=== PATIENT | female | born 1960 | race Caucasian/White ===

== ENCOUNTER → 2017-06-18 | Outpatient (CLI) | payer OTHER ==
--- NOTE | 2017-06-19 07:43 | MM ---
Reason for exam: screening (asymptomatic). Last mammogram was performed 1 year and 8 months ago. History: Patient is postmenopausal and has history of endometrial cancer at age 37. Took estrogen for 5 years beginning at age 48. Physical Findings: A clinical breast exam by your physician is recommended on an annual basis and results should be correlated with mammographic findings. MG Screening Mammo w CAD Bilateral CC, MLO, and XCCL view(s) were taken. Prior study comparison: October 04, 2015, bilateral MG screening mammo w CAD. April 27, 2014, bilateral MG screening mammo w CAD. The breast tissue is heterogeneously dense. This may lower the sensitivity of mammography. There is chronic nodularity in the left breast. There is no discrete abnormality. No significant changes when compared with prior studies. ASSESSMENT: Negative, BI-RAD 1 RECOMMENDATION: Routine screening mammogram of both breasts in 1 year.
== END | disposition home or self-care (01) ==
LOC: RADMAMWWP 13:23
PROVIDERS: ATTEND Family Medicine
DX: Z12.31 Encounter for screening mammogram for malignant neoplasm of breast (principal)

== ENCOUNTER → 2017-12-31 | Outpatient (CLI) | payer OTHER ==
--- NOTE | 2017-12-31 12:36 | XR ---
EXAMINATION TYPE: XR cervical spine limited DATE OF EXAM: 12/31/2017 COMPARISON: NONE HISTORY: Neck pain TECHNIQUE: Four views are submitted. FINDINGS: The odontoid is intact. There are no compression deformities. The prevertebral soft tissue structur es are within normal limits. There is spurring anteriorly at levels C2-C7 with large anterior osteop hytes and fusion of the anterior margins of the vertebral bodies. Severe multilevel facet arthropathy . Odontoid is somewhat sclerotic and there is asymmetry in the atlantoaxial joint spaces with regard to the lateral masses with narrowing on the right. IMPRESSION: 1. Large anterior osteophytes with fusion in the anterior margin the vertebral bodies at multiple lev els correlate for diffuse idiopathic skeletal hyperostosis versus ankylosing spondylitis. Severe face t arthropathy at all levels correlate with MRI..
== END | disposition home or self-care (01) ==
LOC: RADXRMAIN 11:28
PROVIDERS: ATTEND Family Medicine
DX: M25.78 Osteophyte, vertebrae (principal); M46.92 Unspecified inflammatory spondylopathy, cervical region; Z98.1 Arthrodesis status
CPT/HCPCS: 72040

== ENCOUNTER 2018-08-09 19:26 | Emergency (ER) | payer OTHER ==
[2018-08-09] MEDS ORDERED: PIPERACILLIN-TAZOBACTAM 4.5 GM in DEXTROSE/WATER 1 50ML.BAG IVPB STA (20:10)
[2018-08-09] MEDS ORDERED: KETOROLAC 30 MG/ML 1 ML VIAL IVP STA (20:11)
--- NOTE | 2018-08-09 20:16 | ED ---
General Adult HPI - General Chief complaint: Skin/Abscess/Foreign Body Stated complaint: Ear swelling Time Seen by Provider: 08/09/18 19:57 Source: patient Mode of arrival: ambulatory Limitations: no limitations - History of Present Illness Initial comments: Patient is a 4-year-old female who presents with a chief complaint of facial swelling and right-sided ear pain. Patient states this has been going on for about 4 days but up until today the swelling was improving. Patient states that she woke up today and had swelling in the right side of her face, right ear , and pain in the right lateral neck. She cannot identify an inciting incident. She denies previous episodes of the same. She states that she was seen at urgent care at the onset of her swelling and was given a shot of steroids and put on a Medrol Dosepak. - Related Data Previous Rx's Medication Instructions Recorded Ciprofloxacin HCl [Cipro] 750 mg PO BID #14 tablet 08/09/18 Allergies Allergy/AdvReac Type Severity Reaction Status Date / Time codeine AdvReac Nausea Verified 08/09/18 19:45 morphine AdvReac Nausea Verified 08/09/18 19:45 Review of Systems ROS Statement: Those systems with pertinent positive or pertinent negative responses have been documented in the HPI. ROS Other: All systems not noted in ROS Statement are negative. Constitutional: Reports: fever ENT: Reports: ear pain Past Medical History Past Medical History: Asthma, COPD History of Any Multi-Drug Resistant Organisms: None Reported Past Surgical History: Hysterectomy Additional Past Surgical History / Comment(s): right shoulder, bilateral foot, toe amputation on the left foot Past Psychological History: No Psychological Hx Reported Smoking Status: Current every day smoker Past Alcohol Use History: None Reported Past Drug Use History: None Reported General Exam Limitations: no limitations General appearance: alert, in no apparent distress Head exam: Present: atraumatic, normocephalic Eye exam: Present: normal appearance, PERRL, EOMI ENT exam: Absent: TM's normal bilaterally (left ear wnl, right ear has a red, swollen and warm pinna with swelling of the right ear canal. ) Neck exam: Present: tenderness (ttp in right lateral neck ) Respiratory exam: Present: normal lung sounds bilaterally. Absent: respiratory distress, wheezes Cardiovascular Exam: Present: normal rhythm, tachycardia GI/Abdominal exam: Present: soft. Absent: distended, tenderness Rectal exam: Present: deferred External exam: Present: normal external exam Extremities exam: Present: normal inspection Back exam: Present: normal inspection. Absent: CVA tenderness (R), CVA tenderness (L) Neurological exam: Present: alert, oriented X3 Psychiatric exam: Present: normal affect, normal mood Skin exam: Present: warm, dry, intact Course Vital Signs 08/09/18 08/09/18 19:40 21:29 Temperature 100.3 F H 100.5 F H Pulse Rate 118 H 65 Respiratory 20 16 Rate Blood Pressure 119/63 128/60 O2 Sat by Pulse 97 94 L Oximetry Medical Decision Making - Medical Decision Making Patient presents with a chief complaint of right-sided ear pain, facial swelling , and right lateral neck pain. On initial evaluation, patient is tachycardic and mildly febrile at 100.3. Evaluation is concerning for mastoiditis versus malignant otitis externa. That evaluation sent and includes lactic acid, VBG, and blood cultures. Patient given a dose of Zosyn. She'll be evaluated with CT of the face, soft tissue neck, and temporal bones with IV contrast. 10:30 PM Lab evaluation of this patient is grossly unremarkable. CT scans of the face, temporal bones, and soft tissue of the neck show evidence of cellulitis however there is no evidence of abscess. On re-evaluation, patient states she feels better but does not want to wait for IV abx to finish. she states that she wants to go home now. I discussed that I would like the patient to finish the IV but she refuses. at this time, patient will be treated with Cipro 750 BID for 1 week and she was instructed to follow up with PCP in 1-2 days. I discussed concerning signs and symptoms that should prompt immediate return to the emergency department. Patient verbalizes understanding. - Lab Data Result diagrams: 08/09/18 20:16 08/09/18 20:16 Lab Results 08/09/18 08/09/18 08/09/18 Range/Units 20:16 20:16 20:16 WBC 13.6 H (3.8-10.6) k/uL RBC 4.66 (3.80-5.40) m/uL Hgb 14.3 (11.4-16.0) gm/dL Hct 44.6 (34.0-46.0) % MCV 95.7 (80.0-100.0) fL MCH 30.7 (25.0-35.0) pg MCHC 32.1 (31.0-37.0) g/dL RDW 13.1 (11.5-15.5) % Plt Count 300 (150-450) k/uL Neutrophils % 79 % Lymphocytes % 12 % Monocytes % 7 % Eosinophils % 1 % Basophils % 0 % Neutrophils # 10.7 H (1.3-7.7) k/uL Lymphocytes # 1.6 (1.0-4.8) k/uL Monocytes # 0.9 (0-1.0) k/uL Eosinophils # 0.2 (0-0.7) k/uL Basophils # 0.0 (0-0.2) k/uL VBG pH 7.39 (7.31-7.41) VBG pCO2 59 H (37-51) mmHg VBG HCO3 35 H (24-28) mmol/L Sodium 141 (137-145) mmol/L Potassium 3.7 (3.5-5.1) mmol/L Chloride 98 (98-107) mmol/L Carbon Dioxide 34 H (22-30) mmol/L Anion Gap 9 mmol/L BUN 13 (7-17) mg/dL Creatinine 0.47 L (0.52-1.04) mg/dL Est GFR (CKD-EPI)AfAm >90 (>60 ml/min/1.73 sqM) Est GFR (CKD-EPI)NonAf >90 (>60 ml/min/1.73 sqM) Glucose 115 H (74-99) mg/dL Plasma Lactic Acid Scooby (0.7-2.0) mmol/L Calcium 9.4 (8.4-10.2) mg/dL Magnesium 1.8 (1.6-2.3) mg/dL Total Bilirubin 0.3 (0.2-1.3) mg/dL AST 25 (14-36) U/L ALT 31 (9-52) U/L Alkaline Phosphatase 98 (38-126) U/L Total Protein 6.8 (6.3-8.2) g/dL Albumin 3.9 (3.5-5.0) g/dL 08/09/18 Range/Units 20:16 WBC (3.8-10.6) k/uL RBC (3.80-5.40) m/uL Hgb (11.4-16.0) gm/dL Hct (34.0-46.0) % MCV (80.0-100.0) fL MCH (25.0-35.0) pg MCHC (31.0-37.0) g/dL RDW (11.5-15.5) % Plt Count (150-450) k/uL Neutrophils % % Lymphocytes % % Monocytes % % Eosinophils % % Basophils % % Neutrophils # (1.3-7.7) k/uL Lymphocytes # (1.0-4.8) k/uL Monocytes # (0-1.0) k/uL Eosinophils # (0-0.7) k/uL Basophils # (0-0.2) k/uL VBG pH (7.31-7.41) VBG pCO2 (37-51) mmHg VBG HCO3 (24-28) mmol/L Sodium (137-145) mmol/L Potassium (3.5-5.1) mmol/L Chloride (98-107) mmol/L Carbon Dioxide (22-30) mmol/L Anion Gap mmol/L BUN (7-17) mg/dL Creatinine (0.52-1.04) mg/dL Est GFR (CKD-EPI)AfAm (>60 ml/min/1.73 sqM) Est GFR (CKD-EPI)NonAf (>60 ml/min/1.73 sqM) Glucose (74-99) mg/dL Plasma Lactic Acid Scooby 1.7 (0.7-2.0) mmol/L Calcium (8.4-10.2) mg/dL Magnesium (1.6-2.3) mg/dL Total Bilirubin (0.2-1.3) mg/dL AST (14-36) U/L ALT (9-52) U/L Alkaline Phosphatase (38-126) U/L Total Protein (6.3-8.2) g/dL Albumin (3.5-5.0) g/dL Disposition Clinical Impression: Otitis externa, Cellulitis Disposition: HOME SELF-CARE Condition: Good Instructions: Otitis Externa (ED) Prescriptions: Ciprofloxacin HCl [Cipro] 750 mg PO BID #14 tablet Is patient prescribed a controlled substance at d/c from ED?: No Referrals: Angel Rodriguez DO [Primary Care Provider] - 1-2 days
[2018-08-09 20:36] LABS: Basophils % (A) 0 %; Eosinophils # (A) 0.2 k/uL (0-0.7); Eosinophils % (A) 1 %; HCT 44.6 % (34.0-46.0); HGB 14.3 gm/dL (11.4-16.0); Lymphocytes # (A) 1.6 k/uL (1.0-4.8); Lymphocytes % (A) 12 %; MCH 30.7 pg (25.0-35.0); MCHC 32.1 g/dL (31.0-37.0); MCV 95.7 fL (80.0-100.0); Mean Platelet Volume 6.8; Monocytes # (A) 0.9 k/uL (0-1.0); Monocytes % (A) 7 %; Neutrophils # (A) 10.7 k/uL (1.3-7.7); Neutrophils % (A) 79 %; Platelet Count 300 k/uL (150-450); RBC 4.66 m/uL (3.80-5.40); RDW 13.1 % (11.5-15.5); WBC 13.6 k/uL (3.8-10.6)
[2018-08-09 20:40] LABS: VBG PH 7.39 (7.31-7.41)
[2018-08-09 20:45] LABS: ALT 31 U/L (9-52); AST 25 U/L (14-36); Albumin 3.9 g/dL (3.5-5.0); Alkaline Phosphatase 98 U/L (38-126); Anion Gap 9 mmol/L; Blood Urea Nitrogen 13 mg/dL (7-17); Calcium 9.4 mg/dL (8.4-10.2); Carbon Dioxide 34 mmol/L (22-30); Chloride 98 mmol/L (98-107); Glucose 115 mg/dL (74-99); Magnesium 1.8 mg/dL (1.6-2.3); Potassium 3.7 mmol/L (3.5-5.1); Sodium 141 mmol/L (137-145); Total Bilirubin 0.3 mg/dL (0.2-1.3); Total Protein 6.8 g/dL (6.3-8.2)
[2018-08-09 21:31] VITALS: RESP 16
--- NOTE | 2018-08-09 21:41 | CT ---
EXAMINATION TYPE: CT facial bones w con DATE OF EXAM: 08/09/2018 COMPARISON: None HISTORY: Right sided neck and facial swelling and redness x [address] DLP: 624.2 mGycm Automated exposure control for dose reduction was used. CONTRAST: CT scan of the facial bones is performed with IV Contrast, patient injected with mL of Isovue 300. TECHNIQUE: CT scan of the sinuses is performed without contrast, axial images are obtained, coronal r eformatted images are also reviewed. FINDINGS: Orbital margins are intact. There is no evidence of a blowout fracture. There are mucus ret ention cysts in both maxillary sinuses. There is no evidence of orbital mass. The maxilla appears int act. Zygomatic arches appear normal. I see no pathologic enhancement. IMPRESSION: Mucous retention cysts in the maxillary sinuses. No evidence of acute inflammatory change s of the face.
--- NOTE | 2018-08-09 21:45 | CT ---
EXAMINATION TYPE: CT soft tissue neck w con DATE OF EXAM: 08/09/2018 9:19 PM COMPARISON: None HISTORY: Right sided neck and facial swelling and redness x [address] DLP: 272.2 mGycm Automated exposure control for dose reduction was used. CONTRAST: CT scan of the neck is performed following with IV Contrast, patient injected with 100 mL of Isovue 3 00. Axial images are obtained, coronal and sagittal reformatted images are reviewed. FINDINGS: Thyroid gland is symmetric. There is normal contrast opacification of the carotid arteries and jugula r veins. Submandibular salivary glands are symmetric. The parotid glands are fairly symmetric. Epiglo ttis appears normal. Prevertebral soft tissues are not thickened. There is extensive hypertrophic leah dging osteophyte formation in the mid and lower cervical spine. There is minimal subcutaneous edema a long the lateral aspect of the right side of the face. This is seen anterior to the ear and lateral t o the zygomatic arch and the maxilla. There is no discrete fluid collection. The external auditory ca nals appear normal. Mandible is intact. There are a few anterior triangle cervical lymph nodes that m easure up to 10 mm. I see no significant cervical adenopathy. There is no evidence of a pharyngeal ma ss. The tonsils and adenoids appear normal. IMPRESSION: Mild subcutaneous edema over the right side of the face is nonspecific and could relate to mild cellulitis. No evidence of an abscess. Small mucous retention cysts in the maxillary sinuses.
--- NOTE | 2018-08-09 21:51 | CT ---
EXAMINATION TYPE: CT iac w con DATE OF EXAM: 08/09/2018 COMPARISON: None HISTORY: Right sided neck and facial swelling and redness x [address] DLP: 142.7 mGycm Automated exposure control for dose reduction was used. CONTRAST: CT scan of the IACs is performed with IV Contrast, patient injected with mL of Isovue 300. FINDINGS: There are mucous retention cysts in the maxillary sinuses. The external auditory canals brittany ear normal. There is normal aeration of the epitympanic recess and the middle ear cavity bilaterally. There is fairly normal aeration of the mastoid sinuses. Temporomandibular joints are intact. There i s no evidence of cerebellopontine angle mass. There is no pathologic enhancement at the skull base. I nternal auditory canals are symmetric. I see no focal bone destruction. The cochlea and semicircular canals are unremarkable. IMPRESSION: Small mucous retention cysts are seen in the maxillary sinuses. Normal CT scan of the tem poral bones.
[2018-08-09 22:41] VITALS: BP 134/63; PULSE 89; TEMP 99.9
== END 2018-08-09 22:45 | disposition home or self-care (01) ==
LOC: EC 19:26
DX: L03.211 Cellulitis of face (principal); H60.91 Unspecified otitis externa, right ear; R00.0 Tachycardia, unspecified; M54.2 Cervicalgia; F17.200 Nicotine dependence, unspecified, uncomplicated; Z88.5 Allergy status to narcotic agent
CPT/HCPCS: 36415; 80053; 82803; 83605; 83735; 85025; 87040; 70481; 70487; 70491; 99283; 96365; 96366; 96375; J1885; J2543; Q9967

== ENCOUNTER → 2018-11-27 | Outpatient (CLI) | payer OTHER ==
--- NOTE | 2018-12-07 12:27 | MM ---
Reason for exam: screening (asymptomatic). Last mammogram was performed 1 year and 5 months ago. History: Patient is postmenopausal and has history of endometrial cancer at age 37. Took estrogen for 5 years beginning at age 48. MG Screening Mammo w CAD Bilateral CC and MLO view(s) were taken. Prior study comparison: June 18, 2017, bilateral MG screening mammo w CAD. October 04, 2015, bilateral MG screening mammo w CAD. The breast tissue is extremely dense which could obscure a lesion on mammography. Chronic nodularity left breast. No significant changes when compared with prior studies. ASSESSMENT: Benign, BI-RAD 2 RECOMMENDATION: Routine screening mammogram of both breasts in 1 year.
== END ==
LOC: RADMAMWWP 10:44
PROVIDERS: ATTEND Family Medicine
DX: Z12.31 Encounter for screening mammogram for malignant neoplasm of breast (principal)
CPT/HCPCS: 77067

== ENCOUNTER 2019-06-10 08:03 | Day surgery (SDC) | payer OTHER ==
[2019-06-08 12:18] VITALS: BMI 21.1
[~2019-06-10 08:03] MED LIST: LACTATED RINGERS 1,000 ML IV SCH; LIDOCAINE 1% 20 ML VIAL (10MG/ML) FOR IV START INTRADERMA PRN
[2019-06-10 08:26] VITALS: RESP 16; TEMP 97.1
[2019-06-10] MEDS ORDERED: MIDAZOLAM 2 MG/2 ML VIAL ONE (09:15)
[2019-06-10] MEDS ORDERED: fentaNYL (PF) 50 MCG/ML 2 ML AMP ONE (09:15)
[2019-06-10] MEDS ORDERED: PROPOFOL 10 MG/ML 20 ML VIAL IV ONE (09:15)
--- NOTE | 2019-06-10 09:27 | P.GSHP ---
History of Present Illness H&P Date: 06/10/19 Chief Complaint: Colon cancer screening Patient here today for colonoscopy. No colonoscopy previously. No bowel related complaints. No family history of colon cancer. Past Medical History Past Medical History: Asthma, COPD, Osteoarthritis (OA) Additional Past Medical History / Comment(s): MIGRAINE HEADACHE , History of Any Multi-Drug Resistant Organisms: None Reported Past Surgical History: Section, Hysterectomy Additional Past Surgical History / Comment(s): right shoulder X2 , bilateral foot, toe amputation on the left foot , Past Anesthesia/Blood Transfusion Reactions: No Reported Reaction Additional Past Anesthesia/Blood Transfusion Reaction / Comment(s): WITH CODEINE OR MORPHINE- VOMITING AND HEADACHE Smoking Status: Current every day smoker - Past Family History Mother Family Medical History: Deep Vein Thrombosis (DVT) Medications and Allergies Home Medications Medication Instructions Recorded Confirmed Type Cholecalciferol (Vitamin D3) 5,000 unit PO BID 06/08/19 06/08/19 History [Vitamin D3] Dextroamphetamine/Amphetamine 20 mg PO BID 06/08/19 06/08/19 History [Adderall] Dextroamphetamine/Amphetamine 20 mg PO DAILY 06/08/19 06/08/19 History [Adderall] Fluticasone Nasal [place] [Flonase 1 spray EA NOSTRIL DAILY PRN 06/08/19 06/08/19 History Nasal [place]] Galcanezumab-Gnlm [Emgality] 120 mg SQ QMONTH 06/08/19 06/08/19 History Loratadine 10 mg PO BID 06/08/19 06/08/19 History Ondansetron HCl [Zofran] 4 mg PO DAILY PRN 06/08/19 06/10/19 History Ranitidine HCl [Zantac] 150 mg PO BID 06/08/19 06/10/19 History Allergies Allergy/AdvReac Type Severity Reaction Status Date / Time codeine AdvReac SEVERE Verified 06/08/19 11:59 HEADACHE , VOMITING morphine AdvReac Vomiting, Verified 06/08/19 11:59 SEVERE HEADACHE Surgical - Exam Vital Signs Temp Pulse Resp BP Pulse Ox 97.1 F L 79 16 133/87 94 L 06/10/19 08:24 06/10/19 08:24 06/10/19 08:24 06/10/19 08:24 06/10/19 08:24 Physical exam: General: Well-developed, well-nourished HEENT: Normocephalic, sclerae nonicteric Abdomen: Nontender, nondistended Extremities: No edema Neuro: Alert and oriented Assessment and Plan (1) Colon cancer screening Current Visit: Yes Status: Acute Code(s): Z12.11 - ENCOUNTER FOR SCREENING FOR MALIGNANT NEOPLASM OF COLON SNOMED Code(s): 468070501
--- NOTE | 2019-06-10 09:40 | P.PCN ---
Date of Procedure: 06/10/19 Procedure(s) Performed: PREOPERATIVE DIAGNOSIS: Screening POSTOPERATIVE DIAGNOSIS: Poor prep PROCEDURE: Attempted colonoscopy aborted secondary to poor prep ANESTHESIA: MAC SURGEON: Nato Salgado M.D. SPECIMENS: None ENDOSCOPIC PROCEDURE: The patient was placed on the endoscopy table in the left decubitus position. The Olympus colonoscope was inserted into the anus and passed under direct visualization to the mid descending colon. The patient had solid stool seen scattered throughout. We were unable to visualize the mucosal surfaces. Scope withdrawn. No definite abnormalities were present. Digital rectal examination was normal. The patient was taken to the recovery room in stable condition per anesthesia guidelines. RECOMMENDATIONS: Will discuss options with patient regarding reattempts at colonoscopy.
[2019-06-10 09:54] VITALS: BP 110/73; PULSE 82
== END 2019-06-10 10:14 | disposition home or self-care (01) ==
LOC: ORWHC2ENDO 08:03
PROVIDERS: ATTEND Surgery
DX: Z12.11 Encounter for screening for malignant neoplasm of colon (principal); J44.9 Chronic obstructive pulmonary disease, unspecified; M19.90 Unspecified osteoarthritis, unspecified site; G43.909 Migraine, unspecified, not intractable, without status migrainosus; Z90.710 Acquired absence of both cervix and uterus; Z89.422 Acquired absence of other left toe(s); F17.200 Nicotine dependence, unspecified, uncomplicated; F90.9 Attention-deficit hyperactivity disorder, unspecified type; Z97.2 Presence of dental prosthetic device (complete) (partial); H60.90 Unspecified otitis externa, unspecified ear; K21.9 Gastro-esophageal reflux disease without esophagitis; Z79.899 Other long term (current) drug therapy; Z88.5 Allergy status to narcotic agent
CPT/HCPCS: G0121; J2250; J3010; J2704; 45378

== ENCOUNTER → 2021-06-08 | Outpatient (CLI) | payer BC ==
--- NOTE | 2021-06-08 12:36 | XR ---
EXAMINATION TYPE: XR chest 2V DATE OF EXAM: 06/08/2021 CLINICAL HISTORY: R09.02. TECHNIQUE: Frontal and lateral view of the chest. COMPARISON: 11/26/2013 , 01/28/2011 chest x-ray. CT chest 01/28/2011. FINDINGS: The lungs are hyperexpanded with interstitial coarsening. Redemonstrated surgical clips ov er the anterior right upper lung demonstrated to be axillary clips on 2010 CT comparison. The opacity over the left upper lung is related to the left first costochondral joint, benign, and unchanged. Th e cardiomediastinal silhouette is within normal limits for size. Pulmonary vasculature is normal. The re is no focal air space opacity. No pleural effusion. No pneumothorax seen. Dextrocurvature of the thoracic spine. IMPRESSION: 1. No acute cardiopulmonary process. 2. Likely chronic emphysematous changes.
== END | disposition home or self-care (01) ==
LOC: RADXRMAIN 09:46
PROVIDERS: ATTEND Family Medicine
DX: R09.02 Hypoxemia (principal); R91.8 Other nonspecific abnormal finding of lung field
CPT/HCPCS: 71046

== ENCOUNTER → 2021-06-29 | Outpatient (CLI) | payer BC ==
--- NOTE | 2021-07-03 14:15 | MM ---
Reason for exam: screening (asymptomatic). Last mammogram was performed 2 years and 7 months ago. History: Patient is postmenopausal and has history of endometrial cancer at age 37. Took estrogen for 5 years beginning at age 48. Physical Findings: A clinical breast exam by your physician is recommended on an annual basis and results should be correlated with mammographic findings. MG Screening Mammo w CAD Bilateral CC and MLO view(s) were taken. Prior study comparison: November 27, 2018, bilateral MG screening mammo w CAD. June 18, 2017, bilateral MG screening mammo w CAD. The breast tissue is heterogeneously dense. This may lower the sensitivity of mammography. There is chronic nodularity in the left upper outer quadrant. No significant changes when compared with prior studies. ASSESSMENT: Negative, BI-RAD 1 RECOMMENDATION: Routine screening mammogram of both breasts in 1 year.
== END | disposition home or self-care (01) ==
LOC: RADMAMWWP 13:10
PROVIDERS: ATTEND Family Medicine
DX: Z12.31 Encounter for screening mammogram for malignant neoplasm of breast (principal); R09.02 Hypoxemia
CPT/HCPCS: 77067

== ENCOUNTER → 2021-06-29 | Outpatient (CLI) | payer BC ==
--- NOTE | 2021-06-29 14:20 | CT ---
EXAMINATION TYPE: CT angio chest DATE OF EXAM: 06/29/2021 2:08 PM COMPARISON: None HISTORY: Hypoxemia. CT DLP: 117.4 mGycm Automated exposure control for dose reduction was used. CONTRAST: CTA scan of the thorax is performed with IV Contrast, patient injected with 100ml mL of Isovue 370, p ulmonary embolism protocol. . FINDINGS: LUNGS: The lungs are grossly clear, there is no concerning parenchymal mass or nodule identified. T here is no pleural effusion or pneumothorax seen. The tracheobronchial tree is patent. Diffuse emphy sematous changes involving the lungs are noted. Biapical pleural-based thickening. MEDIASTINUM: There is satisfactory enhancement of the pulmonary artery and its branches, there is no CT evidence for pulmonary embolism. There are no greater than 1 cm hilar or mediastinal lymph nodes. No pericardial effusion is seen. Pulmonary arteries are prominent correlate for pulmonary arterial hypertension OTHER: Chronic rib deformities are noted on the right compatible previous trauma. Hypertrophic and d egenerative change of the spine. There is suggestion of previous rib fractures on the left as well. IMPRESSION: 1. No evidence of pulmonary embolism. 2. Diffuse emphysematous changes of the lungs
== END | disposition home or self-care (01) ==
LOC: RADCTMAIN 13:40
PROVIDERS: ATTEND Family Medicine
DX: J43.9 Emphysema, unspecified (principal); R09.02 Hypoxemia
CPT/HCPCS: 71275; Q9967

== ENCOUNTER 2022-10-09 16:19 | Inpatient (IN) | payer BC, OTHER ==
[2022-10-09] MEDS ORDERED: SODIUM CHLORIDE 0.9% 1,000 ML IV STA (16:44)
--- NOTE | 2022-10-09 16:48 | ED ---
General Adult HPI - General Source: patient, RN notes reviewed, old records reviewed Mode of arrival: ambulatory Limitations: no limitations <Cj Lopez - Last Filed: 10/09/22 18:47> <Cj Matamoros - Last Filed: 10/10/22 01:30> - General Chief complaint: GI Bleed Stated complaint: Blood in stool Time Seen by Provider: 10/09/22 16:35 - History of Present Illness Initial comments: This is a 62-year-old female presents emergency Department with a past medical history significant for COPD and is oxygen dependent. Patient comes in today stating that she's had diarrhea since last night and is quite a bit of blood every time she has a bowel movement. Patient states she has no abdominal pain. Patient denies any nausea vomiting. Patient is a fever chills or cough. Patient states she has been lightheaded when she stands per patient also states she's a little bit short of breath as well. Patient denies any chest pain or palpitations. Patient denies any headache patient denies any numbness or weakness that is focal. Patient denies any swelling to her extremities. (Cj Lopez) - Related Data Home Medications Medication Instructions Recorded Confirmed Dextroamphetamine/Amphetamine 10 mg PO DAILY@1400 06/08/19 10/09/22 [Adderall] Dextroamphetamine/Amphetamine 20 mg PO DAILY@0800 06/08/19 10/09/22 [Adderall] Loratadine 10 mg PO DAILY 06/08/19 10/09/22 ondansetron HCL [Zofran] 4 mg PO Q8H PRN 06/08/19 10/09/22 Albuterol Nebulized [Ventolin 2.5 mg INHALATION RT-QID PRN 10/09/22 10/09/22 Nebulized] Albuterol Sulfate [Ventolin HFA] 2 puff INHALATION RT-Q6H PRN 10/09/22 10/09/22 Clobetasol Propionate/Emoll 1 applic TOPICAL DAILY PRN 10/09/22 10/09/22 [Clobetasol Emulsion 0.05% Foam] predniSONE See Taper PO DIRECTED 10/09/22 10/09/22 Allergies Allergy/AdvReac Type Severity Reaction Status Date / Time codeine AdvReac SEVERE Verified 10/09/22 18:06 HEADACHE , VOMITING morphine AdvReac Vomiting, Verified 10/09/22 18:06 SEVERE HEADACHE Review of Systems ROS Other: All systems not noted in ROS Statement are negative. <Cj Lopez - Last Filed: 10/09/22 18:47> ROS Other: All systems not noted in ROS Statement are negative. <JoeljonnieCj Darnell - Last Filed: 10/10/22 01:30> ROS Statement: Those systems with pertinent positive or pertinent negative responses have been documented in the HPI. Past Medical History Past Medical History: Asthma, COPD, Osteoarthritis (OA) Additional Past Medical History / Comment(s): MIGRAINE HEADACHE , History of Any Multi-Drug Resistant Organisms: None Reported Past Surgical History: Section, Hysterectomy Additional Past Surgical History / Comment(s): right shoulder X2 , bilateral foot, toe amputation on the left foot , Past Anesthesia/Blood Transfusion Reactions: No Reported Reaction Additional Past Anesthesia/Blood Transfusion Reaction / Comment(s): WITH CODEINE OR MORPHINE- VOMITING AND HEADACHE Past Psychological History: Depression Smoking Status: Current every day smoker Past Alcohol Use History: Rare Past Drug Use History: None Reported - Past Family History Mother Family Medical History: Deep Vein Thrombosis (DVT) <Cj Lopez - Last Filed: 10/09/22 18:47> General Exam Limitations: no limitations <Cj Lopez - Last Filed: 10/09/22 18:47> Limitations: altered mental status General appearance: alert, anxious, in distress, cachectic Head exam: Present: atraumatic, normocephalic, normal inspection Eye exam: Present: normal appearance, PERRL, EOMI. Absent: scleral icterus, conjunctival injection, periorbital swelling ENT exam: Present: normal exam, mucous membranes moist Neck exam: Present: normal inspection. Absent: tenderness, meningismus, lymphadenopathy Respiratory exam: Present: normal lung sounds bilaterally. Absent: respiratory distress, wheezes, rales, rhonchi, stridor Cardiovascular Exam: Present: regular rate, normal rhythm, normal heart sounds. Absent: systolic murmur, diastolic murmur, rubs, gallop, clicks GI/Abdominal exam: Present: soft, normal bowel sounds. Absent: distended, tenderness, guarding, rebound, rigid Extremities exam: Present: normal inspection, full ROM, normal capillary refill. Absent: tenderness, pedal edema, joint swelling, calf tenderness Back exam: Present: normal inspection Neurological exam: Present: alert, oriented X3, CN II-XII intact Psychiatric exam: Present: normal affect, normal mood Skin exam: Present: warm, dry, intact, normal color. Absent: rash <Cj Matamoros - Last Filed: 10/10/22 01:30> - General Exam Comments Initial Comments: GENERAL: Patient is well-developed and well-nourished. Patient is nontoxic and well- hydrated and is in mild distress. ENT: Neck is soft and supple. No significant lymphadenopathy is noted. Oropharynx is clear. Moist mucous membranes. Neck has full range of motion without eliciting any pain. EYES: The sclera were anicteric and conjunctiva are pale. Extraocular movements were intact and pupils were equal round and reactive to light. Eyelids were unremarkable. PULMONARY: Unlabored respirations. Good breath sounds bilaterally. No audible rales rhonchi or wheezing was noted. CARDIOVASCULAR: There is a regular rate and rhythm without any murmurs gallops or rubs. ABDOMEN: Soft and nontender with normal bowel sounds. SKIN: Skin is clear with no lesions or rashes and otherwise unremarkable. NEUROLOGIC: Patient is alert and oriented x3. Cranial nerves II through XII are grossly intact. Motor and sensory are also intact. Normal speech, volume and content. Symmetrical smile. MUSCULOSKELETAL: Normal extremities with adequate strength and full range of motion. No lower extremity swelling or edema. No calf tenderness. LYMPHATICS: No significant lymphadenopathy is noted PSYCHIATRIC: Normal psychiatric evaluation. (Cj Lopez) Course Vital Signs 10/09/22 10/09/22 10/09/22 16:21 17:00 18:00 Temperature 98.5 F Pulse Rate 110 H 112 H Respiratory 20 20 Rate Blood Pressure 82/51 93/45 100/61 O2 Sat by Pulse 98 99 Oximetry 10/09/22 10/09/22 10/10/22 19:32 23:32 00:38 Temperature Pulse Rate 105 H 101 H 111 H Respiratory 18 15 15 Rate Blood Pressure 101/54 80/46 100/58 O2 Sat by Pulse 98 97 97 Oximetry Medical Decision Making - Lab Data Result diagrams: 10/09/22 17:10 10/09/22 17:10 <Cj Lopez - Last Filed: 10/09/22 18:47> - Lab Data Result diagrams: 10/10/22 00:42 10/09/22 17:10 <Cj Matamoros - Last Filed: 10/10/22 01:30> - Medical Decision Making Patient's hemoglobin was 18 the patient stated that she was still having blood in her bowel movements. Patient's magnesium was 1.4 I gave the patient 1 g of magnesium IV. I spoke with the [facility] agreed to admit the patient admitted the patient I wrote admitting orders (Cj Lopez) - Lab Data Lab Results 10/09/22 10/09/22 10/09/22 Range/Units 17:00 17:05 17:10 WBC 7.8 (3.8-10.6) k/uL RBC 4.21 (3.80-5.40) m/uL Hgb 13.8 (11.4-16.0) gm/dL Hct 43.1 (34.0-46.0) % MCV 102.3 H (80.0-100.0) fL MCH 32.9 (25.0-35.0) pg MCHC 32.1 (31.0-37.0) g/dL RDW 12.8 (11.5-15.5) % Plt Count 232 (150-450) k/uL MPV 7.9 Neutrophils % 89 % Lymphocytes % 7 % Monocytes % 2 % Eosinophils % 1 % Basophils % 0 % Neutrophils # 6.9 (1.3-7.7) k/uL Lymphocytes # 0.6 L (1.0-4.8) k/uL Monocytes # 0.2 (0-1.0) k/uL Eosinophils # 0.0 (0-0.7) k/uL Basophils # 0.0 (0-0.2) k/uL Hypochromasia Slight Macrocytosis Slight PT (9.0-12.0) sec INR (<1.2) APTT (22.0-30.0) sec Sodium (137-145) mmol/L Potassium (3.5-5.1) mmol/L Chloride (98-107) mmol/L Carbon Dioxide (22-30) mmol/L Anion Gap mmol/L BUN (7-17) mg/dL Creatinine (0.52-1.04) mg/dL Est GFR (CKD-EPI)AfAm (>60 ml/min/1.73 sqM) Est GFR (CKD-EPI)NonAf (>60 ml/min/1.73 sqM) Glucose (74-99) mg/dL Calcium (8.4-10.2) mg/dL Magnesium (1.6-2.3) mg/dL Total Bilirubin (0.2-1.3) mg/dL AST (14-36) U/L ALT (4-34) U/L Alkaline Phosphatase (38-126) U/L Troponin I (0.000-0.034) ng/mL Total Protein (6.3-8.2) g/dL Albumin (3.5-5.0) g/dL Blood Type O Positive Blood Type Confirm O Positive Blood Type Recheck No Previous Record Bld Type Recheck Status CABO Indicated Antibody Screen NEGATIVE Spec Expiration Date 10/12/2022 - 229910/09/22 10/09/22 10/09/22 Range/Units 17:10 17:10 17:10 WBC (3.8-10.6) k/uL RBC (3.80-5.40) m/uL Hgb (11.4-16.0) gm/dL Hct (34.0-46.0) % MCV (80.0-100.0) fL MCH (25.0-35.0) pg MCHC (31.0-37.0) g/dL RDW (11.5-15.5) % Plt Count (150-450) k/uL MPV Neutrophils % % Lymphocytes % % Monocytes % % Eosinophils % % Basophils % % Neutrophils # (1.3-7.7) k/uL Lymphocytes # (1.0-4.8) k/uL Monocytes # (0-1.0) k/uL Eosinophils # (0-0.7) k/uL Basophils # (0-0.2) k/uL Hypochromasia Macrocytosis PT 11.2 (9.0-12.0) sec INR 1.0 (<1.2) APTT 24.3 (22.0-30.0) sec Sodium 139 (137-145) mmol/L Potassium 4.5 (3.5-5.1) mmol/L Chloride 94 L (98-107) mmol/L Carbon Dioxide 40 H (22-30) mmol/L Anion Gap 5 mmol/L BUN 45 H (7-17) mg/dL Creatinine 0.46 L (0.52-1.04) mg/dL Est GFR (CKD-EPI)AfAm >90 (>60 ml/min/1.73 sqM) Est GFR (CKD-EPI)NonAf >90 (>60 ml/min/1.73 sqM) Glucose 121 H (74-99) mg/dL Calcium 9.0 (8.4-10.2) mg/dL Magnesium 1.4 L (1.6-2.3) mg/dL Total Bilirubin 0.5 (0.2-1.3) mg/dL AST 28 (14-36) U/L ALT 23 (4-34) U/L Alkaline Phosphatase 49 (38-126) U/L Troponin I <0.012 (0.000-0.034) ng/mL Total Protein 6.5 (6.3-8.2) g/dL Albumin 4.1 (3.5-5.0) g/dL Blood Type Blood Type Confirm Blood Type Recheck Bld Type Recheck Status Antibody Screen Spec Expiration Date Critical Care Time Critical Care Time: Yes Total Critical Care Time: 35 <Cj Lopez - Last Filed: 10/09/22 18:47> <Cj Matamoros - Last Filed: 10/10/22 01:30> Critical Care Time: 31 (Cj Matamoros) Disposition Time of Disposition: 18:10 <Cj Lopez - Last Filed: 10/09/22 18:47> Is patient prescribed a controlled substance at d/c from ED?: No <Cj Matamoros - Last Filed: 10/10/22 01:30> Clinical Impression: GI bleed, Hypomagnesemia, Syncope, Anemia Disposition: ADMITTED IP TO THIS HOSP Condition: Serious
[2022-10-09 17:22] LABS: Basophils % (A) 0 %; Eosinophils % (A) 1 %; HCT 43.1 % (34.0-46.0); HGB 13.8 gm/dL (11.4-16.0); Hypochromasia Slight; Lymphocytes # (A) 0.6 k/uL (1.0-4.8); Lymphocytes % (A) 7 %; MCH 32.9 pg (25.0-35.0); MCHC 32.1 g/dL (31.0-37.0); MCV 102.3 fL (80.0-100.0); Macrocytosis Slight; Mean Platelet Volume 7.9; Monocytes # (A) 0.2 k/uL (0-1.0); Monocytes % (A) 2 %; Neutrophils # (A) 6.9 k/uL (1.3-7.7); Neutrophils % (A) 89 %; Platelet Count 232 k/uL (150-450); RBC 4.21 m/uL (3.80-5.40); RDW 12.8 % (11.5-15.5); WBC 7.8 k/uL (3.8-10.6)
[2022-10-09 17:32] LABS: Partial Thromboplastin Time 24.3 sec (22.0-30.0); Prothrombin Time 11.2 sec (9.0-12.0)
[2022-10-09 17:42] LABS: ALT 23 U/L (4-34); AST 28 U/L (14-36); African American GFR (CKD) >90 (>60 ml/min/1.73 sqM); Albumin 4.1 g/dL (3.5-5.0); Alkaline Phosphatase 49 U/L (38-126); Anion Gap 5 mmol/L; Blood Urea Nitrogen 45 mg/dL (7-17); Chloride 94 mmol/L (98-107); Glucose 121 mg/dL (74-99); Magnesium 1.4 mg/dL (1.6-2.3); Non-African American GFR(CKD) >90 (>60 ml/min/1.73 sqM); Potassium 4.5 mmol/L (3.5-5.1); Sodium 139 mmol/L (137-145); Total Bilirubin 0.5 mg/dL (0.2-1.3); Total Protein 6.5 g/dL (6.3-8.2)
[2022-10-09 17:54] LABS: Carbon Dioxide 40 mmol/L (22-30)
[2022-10-09] MEDS ORDERED: MAGNESIUM SULFATE-D5W PMX 1 GM in DEXTROSE/WATER 1 100ML.BAG IVPB ONE (18:01)
[2022-10-09] MEDS ORDERED: SODIUM CHLORIDE 0.9% 1,000 ML IV ONE (18:48)
[2022-10-09 19:17] LABS: Basophils % (A) 0 %; Eosinophils % (A) 0 %; HCT 31.4 % (34.0-46.0); Lymphocytes # (A) 0.9 k/uL (1.0-4.8); Lymphocytes % (A) 14 %; MCH 32.3 pg (25.0-35.0); MCHC 31.4 g/dL (31.0-37.0); MCV 102.8 fL (80.0-100.0); Macrocytosis Slight; Mean Platelet Volume 8.2; Monocytes # (A) 0.3 k/uL (0-1.0); Monocytes % (A) 4 %; Neutrophils # (A) 5.1 k/uL (1.3-7.7); Neutrophils % (A) 80 %; Platelet Count 191 k/uL (150-450); RBC 3.05 m/uL (3.80-5.40); RDW 13.3 % (11.5-15.5); WBC 6.4 k/uL (3.8-10.6)
[2022-10-09 19:19] LABS: HGB 9.9 gm/dL (11.4-16.0)
[2022-10-10 00:53] LABS: Basophils # (A) 0.1 k/uL (0-0.2); Basophils % (A) 1 %; Eosinophils # (A) 0.1 k/uL (0-0.7); Eosinophils % (A) 1 %; HCT 26.3 % (34.0-46.0); HGB 8.9 gm/dL (11.4-16.0); Lymphocytes # (A) 1.7 k/uL (1.0-4.8); Lymphocytes % (A) 28 %; MCH 33.9 pg (25.0-35.0); MCHC 33.9 g/dL (31.0-37.0); MCV 100.1 fL (80.0-100.0); Mean Platelet Volume 8.3; Monocytes # (A) 0.4 k/uL (0-1.0); Monocytes % (A) 7 %; Neutrophils # (A) 3.9 k/uL (1.3-7.7); Neutrophils % (A) 62 %; Platelet Count 173 k/uL (150-450); RBC 2.63 m/uL (3.80-5.40); WBC 6.2 k/uL (3.8-10.6)
[2022-10-10] MEDS ORDERED: ONDANSETRON 4 MG/2 ML VIAL IVP PRN (01:33)
[2022-10-10] MEDS ORDERED: ONDANSETRON 4 MG/2 ML VIAL IVP STA (01:33)
[2022-10-10] MEDS ORDERED: PANTOPRAZOLE 40 MG/10 ML VIAL IVP STA (01:33)
[2022-10-10] MEDS ORDERED: TRANEXAMIC ACID IN NACL,ISO-OS 1,000 MG in SALINE 1 100ML.BAG IV STA (01:33)
[2022-10-10 08:53] LABS: Basophils % (A) 0 %; Eosinophils # (A) 0.1 k/uL (0-0.7); Eosinophils % (A) 1 %; HCT 32.9 % (34.0-46.0); HGB 10.7 gm/dL (11.4-16.0); Hypochromasia Slight; Lymphocytes # (A) 1.1 k/uL (1.0-4.8); Lymphocytes % (A) 18 %; MCH 32.2 pg (25.0-35.0); MCHC 32.5 g/dL (31.0-37.0); MCV 98.9 fL (80.0-100.0); Macrocytosis Slight; Mean Platelet Volume 9.3; Monocytes # (A) 0.4 k/uL (0-1.0); Monocytes % (A) 6 %; Neutrophils # (A) 4.4 k/uL (1.3-7.7); Neutrophils % (A) 73 %; Platelet Count 150 k/uL (150-450); RBC 3.33 m/uL (3.80-5.40); RDW 15.2 % (11.5-15.5)
[2022-10-10 09:05] LABS: African American GFR (CKD) >90 (>60 ml/min/1.73 sqM); Blood Urea Nitrogen 34 mg/dL (7-17); Calcium 7.1 mg/dL (8.4-10.2); Chloride 103 mmol/L (98-107); Glucose 106 mg/dL (74-99); Magnesium 1.8 mg/dL (1.6-2.3); Non-African American GFR(CKD) >90 (>60 ml/min/1.73 sqM); Potassium 4.4 mmol/L (3.5-5.1); Sodium 141 mmol/L (137-145)
[2022-10-10 09:13] LABS: Anion Gap -4 mmol/L
[2022-10-10] MEDS: PANTOPRAZOLE 40 MG/10 ML VIAL IVP SCH ×2 (09:26→20:12)
--- NOTE | 2022-10-10 10:01 | P.CONS ---
History of Present Illness - Reason for Consult Consult date: 10/10/22 GI bleed Requesting physician: Cj Lopez - Chief Complaint Bloody bowel movements, weakness - History of Present Illness This is a 62-year-old female who came into the emergency department yesterday evening with complaints of bloody diarrhea. Patient has a past medical history of COPD, she is currently on a prednisone taper dose for the last 11-2 weeks. She also states she takes Motrin as needed for pain. Yesterday she started having several episodes of diarrhea that then started to have maroon colored blood as well. She was becoming short of breath and li ghtheaded and presented to the emergency department for further evaluation. She currently is very lethargic, fading in and out of sleep during her interview. Nursing has reported that around 1:30 in the morning patient had multiple maroon colored bloody bowel movements. She had a drop in her hemoglobin from admission of 13.8-8.9. She has been given 2 units of blood. Repeat hemoglobin 10.7 this morning. She denies any previous history of peptic ulcer disease or GI bleed. Her last colonoscopy was with Dr. Salgaod in 2016 which was aborted due to poor prep. She denies any anticoagulation use. She also had elevated BUN on admission consistent with possible upper GI bleed. Review of Systems REVIEW OF SYSTEMS: CARDIOPULMONARY: No chest pain, patient with cough and shortness of breath. Gastrointestinal: No abdominal pain or cramping. No nausea or vomiting. No hematemesis, coffee-ground emesis. No rectal bleeding, or melena. GENITOURINARY: No dysuria or hematuria. MUSCULOSKELETAL: Reports normal range of motion. SKIN: No rashes. No jaundice. ENDOCRINE: No chills, fevers. No excessive weight gain or loss. No polydipsia or polyuria. PSYCHIATRIC: Unremarkable. NEUROLOGY: No change in mental status. Denies dizziness, headache. ENT: Vision unremarkable. CONSTITUTIONAL: No recent weight loss. No fever, chills, night sweats. Lightheaded, lethargic. Past Medical History Past Medical History: Asthma, COPD, Osteoarthritis (OA) Additional Past Medical History / Comment(s): MIGRAINE HEADACHE , History of Any Multi-Drug Resistant Organisms: None Reported Past Surgical History: Section, Hysterectomy Additional Past Surgical History / Comment(s): right shoulder X2 , bilateral foot, toe amputation on the left foot , Past Anesthesia/Blood Transfusion Reactions: No Reported Reaction Additional Past Anesthesia/Blood Transfusion Reaction / Comm: WITH CODEINE OR MORPHINE- VOMITING AND HEADACHE Past Psychological History: Depression Smoking Status: Current every day smoker Past Alcohol Use History: Rare Past Drug Use History: None Reported - Past Family History Mother Family Medical History: Deep Vein Thrombosis (DVT) Medications and Allergies Home Medications Medication Instructions Recorded Confirmed Type Dextroamphetamine/Amphetamine 10 mg PO DAILY@1400 06/08/19 10/09/22 History [Adderall] Dextroamphetamine/Amphetamine 20 mg PO DAILY@0800 06/08/19 10/09/22 History [Adderall] Loratadine 10 mg PO DAILY 06/08/19 10/09/22 History ondansetron HCL [Zofran] 4 mg PO Q8H PRN 06/08/19 10/09/22 History Albuterol Nebulized [Ventolin 2.5 mg INHALATION RT-QID PRN 10/09/22 10/09/22 History Nebulized] Albuterol Sulfate [Ventolin HFA] 2 puff INHALATION RT-Q6H PRN 10/09/22 10/09/22 History Clobetasol Propionate/Emoll 1 applic TOPICAL DAILY PRN 10/09/22 10/09/22 History [Clobetasol Emulsion 0.05% Foam] predniSONE See Taper PO DIRECTED 10/09/22 10/09/22 History Allergies Allergy/AdvReac Type Severity Reaction Status Date / Time codeine AdvReac SEVERE Verified 10/09/22 18:06 HEADACHE , VOMITING morphine AdvReac Vomiting, Verified 10/09/22 18:06 SEVERE HEADACHE Physical Exam Vitals: Vital Signs Temp Pulse Resp BP Pulse Ox 10/10/22 07:42 93 15 112/61 99 10/10/22 05:20 92 15 105/59 100 10/10/22 05:18 91 15 108/59 100 10/10/22 04:55 85 15 110/59 100 10/10/22 04:06 93 15 115/54 100 10/10/22 03:51 88 17 103/55 100 10/10/22 03:31 87 18 112/49 100 10/10/22 03:22 98 F 86 17 100/64 100 10/10/22 03:13 89 15 80/44 100 10/10/22 02:30 86 15 89/46 100 10/10/22 02:20 84 15 97/52 100 10/10/22 02:10 81 15 92/52 100 10/10/22 02:00 97.8 F 100 17 95/46 98 10/10/22 00:38 111 H 15 100/58 97 10/09/22 23:32 101 H 15 80/46 97 10/09/22 19:32 105 H 18 101/54 98 10/09/22 18:00 112 H 20 100/61 99 10/09/22 17:00 110 H 20 93/45 98 10/09/22 16:21 98.5 F 82/51 Intake and Output 10/09/22 10/10/22 10/10/22 22:59 06:59 14:59 Intake Total 620 Balance 620 Intake: Blood Product 620 Rc As-1 Unit 310 [id number] Rc As-1 Unit 310 [id number] Other: Weight 58.513 kg General appearance: The patient is alert, oriented, appears in no acute distress. HET: Head is normocephalic and atraumatic. Conjunctiva pink. Sclera anicteric. Neck: Supple without lymphadenopathy. Trachea midline. Heart: S1 S2. Regular rate and rhythm. Lungs: Clear to auscultation. Abdomen: Soft, nontender, nondistended with bowel sounds. No guarding or rigidity. Skin: No rashes. No jaundice. Extremities: Normal skin color and turgor. No pedal edema. Neurological: No focal deficits. Alert and oriented x3. Patient very Lethargic, arousable and answering questions. Results CBC & Chem 7: 10/10/22 08:41 10/10/22 08:41 Labs: Abnormal Lab Results - Last 24 Hours (Table) 10/09/22 10/09/22 10/09/22 Range/Units 17:00 17:10 17:10 RBC (3.80-5.40) m/uL Hgb (11.4-16.0) gm/dL Hct (34.0-46.0) % MCV 102.3 H (80.0-100.0) fL Lymphocytes # 0.6 L (1.0-4.8) k/uL Chloride 94 L (98-107) mmol/L Carbon Dioxide 40 H (22-30) mmol/L BUN 45 H (7-17) mg/dL Creatinine 0.46 L (0.52-1.04) mg/dL Glucose 121 H (74-99) mg/dL Magnesium 1.4 L (1.6-2.3) mg/dL Crossmatch See Detail 10/09/22 10/10/22 Range/Units 19:10 00:42 RBC 3.05 L 2.63 L (3.80-5.40) m/uL Hgb 9.9 L D 8.9 L (11.4-16.0) gm/dL Hct 31.4 L 26.3 L (34.0-46.0) % MCV 102.8 H 100.1 H (80.0-100.0) fL Lymphocytes # 0.9 L (1.0-4.8) k/uL Chloride (98-107) mmol/L Carbon Dioxide (22-30) mmol/L BUN (7-17) mg/dL Creatinine (0.52-1.04) mg/dL Glucose (74-99) mg/dL Magnesium (1.6-2.3) mg/dL Crossmatch Assessment and Plan (1) GI bleed Narrative/Plan: 62-year-old female who presented to the emergency department with multiple episodes of diarrhea which then became bloody. She had multiple maroon colored stools throughout the night. She had a drop in her hemoglobin from 13.8 on admission to 8.9 yesterday evening. She's been given 2 units of blood. Patient continues to be symptomatic, very lethargic. Patient has been on prednisone tap er dose for the last 1-2 weeks duration also using NSAIDs as needed. Possible etiologies include peptic ulcer disease, gastritis, esophagitis, AVM or other possible etiologies. Will proceed with upper endoscopy, patient scheduled for EGD this afternoon. Keep nothing by mouth. Current Visit: Yes Status: Acute Code(s): K92.2 - GASTROINTESTINAL HEMORRHAGE, UNSPECIFIED SNOMED Code(s): 57138687 (2) Symptomatic anemia Current Visit: Yes Status: Acute Code(s): D64.9 - ANEMIA, UNSPECIFIED SNOMED Code(s): 837911652 Plan: 1. Continue symptomatic supportive care 2. CBC daily, transfuse for hemoglobin less than 7 3. Protonix 40 mg twice a day IV push 4. Avoid NSAIDs 5. Nothing by mouth 6. Plan for EGD this afternoon Thank you for this consultation, we will continue to follow. Dr. Angel Wiley I agree with the dictator's note, documented as a scribe by Alejandra Morfin.
--- NOTE | 2022-10-10 12:08 | P.CNPUL ---
History of Present Illness Consult date: 10/10/22 Requesting physician: Mine Wilson Reason for consult: other Chief complaint: GI bleed. History of present illness: Pulmonary/critical care consult dated 10/10/2022. 62-year-old female who sees Dr. Rodriguez as a primary. We see her today in the emergency room, room 3. The patient presented to the emergency department, on October 09, with a GI bleed. She apparently had bright red blood in her stool. She apparently had been having this same issue now for a day or so prior to admission. She noted blood every time he had a bowel movement. Also, her stools have been loose. The patient was seen by the ER physician, and I was called about her, for possible admission to the intensive care unit. Even though her vital signs were stable, the fact that she was having bright red blood per rectum, and the fact that she received 2 units of packed red blood cells, necessitated an admission. Currently, she is on 2 L of oxygen. She's getting saline at KVO. Early this past morning, she was vomiting up blood, and also passing dark jellylike stools from her rectum. The patient apparently does have a history of COPD, and does use home O2. She also has a history of migraine cephalgia, and osteoarthritis. She is scheduled for an EGD today. White count 6, hemoglobin 10.7, hematocrit 32.9, with a normal platelet count. Coagulation studies are normal. Sodium 141, potassium 4.4, chlorides 103, CO2 42, BUN 34, and creatinine 0.39. Review of Systems REVIEW OF SYSTEMS: CONSTITUTIONAL: [Negative.] NEUROLOGIC: [ Negative.] HEENT: [ Negative.] CARDIAC: [Negative.] PULMONARY: Hematemesis, and bright red bleeding per rectum. GI: [Negative.] : [Negative.] RHEUMATOLOGIC: [ Negative.] IMMUNOLOGIC: [ Negative.] ENDOCRINE: [Negative. 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 , Past Anesthesia/Blood Transfusion Reactions: No Reported Reaction Additional Past Anesthesia/Blood Transfusion Reaction / Comment(s): WITH CODEINE OR MORPHINE- VOMITING AND HEADACHE Past Psychological History: Depression Smoking Status: Current every day smoker Past Alcohol Use History: Rare Past Drug Use History: None Reported - Past Family History Mother Family Medical History: Deep Vein Thrombosis (DVT) Medications and Allergies Home Medications Medication Instructions Recorded Confirmed Type Dextroamphetamine/Amphetamine 10 mg PO DAILY@1400 06/08/19 10/09/22 History [Adderall] Dextroamphetamine/Amphetamine 20 mg PO DAILY@0800 06/08/19 10/09/22 History [Adderall] Loratadine 10 mg PO DAILY 06/08/19 10/09/22 History ondansetron HCL [Zofran] 4 mg PO Q8H PRN 06/08/19 10/09/22 History Albuterol Nebulized [Ventolin 2.5 mg INHALATION RT-QID PRN 10/09/22 10/09/22 History Nebulized] Albuterol Sulfate [Ventolin HFA] 2 puff INHALATION RT-Q6H PRN 10/09/22 10/09/22 History Clobetasol Propionate/Emoll 1 applic TOPICAL DAILY PRN 10/09/22 10/09/22 History [Clobetasol Emulsion 0.05% Foam] predniSONE See Taper PO DIRECTED 10/09/22 10/09/22 History Allergies Allergy/AdvReac Type Severity Reaction Status Date / Time codeine AdvReac SEVERE Verified 10/09/22 18:06 HEADACHE , VOMITING morphine AdvReac Vomiting, Verified 10/09/22 18:06 SEVERE HEADACHE Physical Exam Osteopathic Statement: *. No significant issues noted on an osteopathic structural exam other than those noted in the History and Physical/Consult. Vitals: Vital Signs Temp Pulse Resp BP Pulse Ox 10/10/22 10:20 98 17 116/57 98 10/10/22 09:33 94 15 122/55 97 10/10/22 07:42 93 15 112/61 99 10/10/22 05:20 92 15 105/59 100 10/10/22 05:18 91 15 108/59 100 10/10/22 04:55 85 15 110/59 100 10/10/22 04:06 93 15 115/54 100 10/10/22 03:51 88 17 103/55 100 10/10/22 03:31 87 18 112/49 100 10/10/22 03:22 98 F 86 17 100/64 100 10/10/22 03:13 89 15 80/44 100 10/10/22 02:30 86 15 89/46 100 10/10/22 02:20 84 15 97/52 100 10/10/22 02:10 81 15 92/52 100 10/10/22 02:00 97.8 F 100 17 95/46 98 10/10/22 00:38 111 H 15 100/58 97 10/09/22 23:32 101 H 15 80/46 97 10/09/22 19:32 105 H 18 101/54 98 10/09/22 18:00 112 H 20 100/61 99 10/09/22 17:00 110 H 20 93/45 98 10/09/22 16:21 98.5 F 82/51 Intake and Output 10/09/22 10/10/22 10/10/22 22:59 06:59 14:59 Intake Total 620 Balance 620 Intake: Blood Product 620 As-1 Unit 310 [id number] As-1 Unit 310 [id number] Other: Weight 58.513 kg No acute distress, oriented 3. The patient is very pale appearing. She is also a very poor historian. HEENT examination is grossly unremarkable. Neck supple. Full range of motion. No adenopathy thyromegaly or neck vein distention. Cardiovascular examination reveals regular rhythm rate. S1-S2 normal. No S3 or S4. No discernible murmur noted. Heart rate 98 bpm. Lungs reveal mostly clear breath sounds. Minimal rhonchi. No crackles or wheezes. Breath sounds equal bilaterally but diminished throughout. Abdomen soft bowel sounds are heard. No masses or tenderness. Extremities are intact. No cyanosis clubbing or edema. Skin is without rash or lesion. Neurologic examination is brief but nonfocal. Results - Laboratory Findings CBC and BMP: 10/10/22 08:41 10/10/22 08:41 PT/INR, D-dimer PT 11.2 sec (9.0-12.0) 10/09/22 17:10 INR 1.0 (<1.2) 10/09/22 17:10 Abnormal lab findings: Abnormal Labs 10/09/22 10/09/22 10/09/22 17:00 17:10 17:10 RBC Hgb Hct MCV 102.3 H Lymphocytes # 0.6 L Chloride 94 L Carbon Dioxide 40 H BUN 45 H Creatinine 0.46 L Glucose 121 H Calcium Magnesium 1.4 L Crossmatch See Detail 10/09/22 10/10/22 10/10/22 19:10 00:42 08:41 RBC 3.05 L 2.63 L Hgb 9.9 L D 8.9 L Hct 31.4 L 26.3 L MCV 102.8 H 100.1 H Lymphocytes # 0.9 L Chloride Carbon Dioxide 42 H* BUN 34 H Creatinine 0.39 L Glucose 106 H Calcium 7.1 L Magnesium Crossmatch 10/10/22 08:41 RBC 3.33 L Hgb 10.7 L Hct 32.9 L MCV Lymphocytes # Chloride Carbon Dioxide BUN Creatinine Glucose Calcium Magnesium Crossmatch Assessment and Plan Assessment: Acute gastrointestinal bleed, with anticipated EGD, later today. Anemia, status post 2 units of packed red blood cells. Ongoing tobacco use. History of severe oxygen-dependent COPD. History of osteoarthritis. History of migraine cephalgia. Plan: Plan dated 10/10/2022. The patient is seen in the emergency room, and appears relatively stable. Her vital signs are stable. She is a very poor historian. She apparently has quite severe COPD, and used to see one of us in the past, but she has not see any of us recently. The patient is scheduled to have an EGD later today. If there is no active bleeding, and the patient remained stable without further episodes of bright red bleeding per rectum, or hematemesis, she can be transferred to the floor. Should there be active bleeding on EGD, or should she have additional episodes of bright red bleeding per rectum and or hematemesis, she'll come to the intensive care unit. She will also come to the intensive care unit should her vital signs change and become more unstable. Time with Patient: Greater than 30
[2022-10-10] MEDS ORDERED: ONDANSETRON 4 MG TAB PO PRN (12:45)
--- NOTE | 2022-10-10 12:53 | P.HPIM ---
History of Present Illness 62-year-old female came in with complaints of blood in the stools or diarrhea along with the throwing up blood. Patient is drowsy and able to provide much of the history to me but she said she does take something for migraine denied taking any aspirin or any other blood thinners. Patient also complaining of minimal epigastric abdominal pain, as per the GI documentation patient apparently takes Motrin. Patient is also on prednisone taper. Patient was having maroon colored stools as well as bloody stools. Patient does have h istory of COPD uses 2 L of oxygen at home presently denied any shortness of breath cough. Since hemoglobin was 8.9 today with is 10.7 probably received blood transfusion REVIEW OF SYSTEMS: All other review of systems are negative except those mentioned above PHYSICAL EXAMINATION: GENERAL: The patient is drowsy oriented x3, not in any acute distress. Well developed, well nourished. HEENT: Pupils are round and equally reacting to light. EOMI. No scleral icterus. No conjunctival pallor. Normocephalic, atraumatic. No pharyngeal erythema. No thyromegaly. CARDIOVASCULAR: S1 and S2 present. No murmurs, rubs, or gallops. PULMONARY: Chest is clear to auscultation, no wheezing or crackles. ABDOMEN: Soft, nontender, nondistended, normoactive bowel sounds. No palpable organomegaly. MUSCULOSKELETAL: No joint swelling or deformity. EXTREMITIES: No cyanosis, clubbing, or pedal edema. NEUROLOGICAL: Gross neurological examination did not reveal any focal deficits. SKIN: No rashes. Assessment and plan -Acute upper GI bleed: Secondary to possible peptic ulcer disease hold off on the steroids as well as nonsteroidal anti-inflammatory medication continue with the Protonix patient will undergo upper GI endoscopy today -COPD without any acute exacerbation -History of migraines -Depression next From continued nicotine use: Counseling was provided DVT prophylaxis: SCDs Past Medical History Past Medical History: Asthma, COPD, Osteoarthritis (OA) Additional Past Medical History / Comment(s): MIGRAINE HEADACHE , History of Any Multi-Drug Resistant Organisms: None Reported Past Surgical History: Section, Hysterectomy Additional Past Surgical History / Comment(s): right shoulder X2 , bilateral foot, toe amputation on the left foot , Past Anesthesia/Blood Transfusion Reactions: No Reported Reaction Additional Past Anesthesia/Blood Transfusion Reaction / Comment(s): WITH CODEINE OR MORPHINE- VOMITING AND HEADACHE Past Psychological History: Depression Smoking Status: Current every day smoker Past Alcohol Use History: Rare Past Drug Use History: None Reported - Past Family History Mother Family Medical History: Deep Vein Thrombosis (DVT) Medications and Allergies Home Medications Medication Instructions Recorded Confirmed Type Dextroamphetamine/Amphetamine 10 mg PO DAILY@1400 06/08/19 10/09/22 History [Adderall] Dextroamphetamine/Amphetamine 20 mg PO DAILY@0800 06/08/19 10/09/22 History [Adderall] Loratadine 10 mg PO DAILY 06/08/19 10/09/22 History ondansetron HCL [Zofran] 4 mg PO Q8H PRN 06/08/19 10/09/22 History Albuterol Nebulized [Ventolin 2.5 mg INHALATION RT-QID PRN 10/09/22 10/09/22 History Nebulized] Albuterol Sulfate [Ventolin HFA] 2 puff INHALATION RT-Q6H PRN 10/09/22 10/09/22 History Clobetasol Propionate/Emoll 1 applic TOPICAL DAILY PRN 10/09/22 10/09/22 History [Clobetasol Emulsion 0.05% Foam] predniSONE See Taper PO DIRECTED 10/09/22 10/09/22 History Allergies Allergy/AdvReac Type Severity Reaction Status Date / Time codeine AdvReac SEVERE Verified 10/09/22 18:06 HEADACHE , VOMITING morphine AdvReac Vomiting, Verified 10/09/22 18:06 SEVERE HEADACHE Physical Exam Vitals: Vital Signs Temp Pulse Resp BP Pulse Ox 10/10/22 12:00 84 13 119/57 96 10/10/22 11:00 90 15 116/57 99 10/10/22 10:20 98 17 116/57 98 10/10/22 09:33 94 15 122/55 97 10/10/22 07:42 93 15 112/61 99 10/10/22 05:20 92 15 105/59 100 10/10/22 05:18 91 15 108/59 100 10/10/22 04:55 85 15 110/59 100 10/10/22 04:06 93 15 115/54 100 10/10/22 03:51 88 17 103/55 100 10/10/22 03:31 87 18 112/49 100 10/10/22 03:22 98 F 86 17 100/64 100 10/10/22 03:13 89 15 80/44 100 10/10/22 02:30 86 15 89/46 100 10/10/22 02:20 84 15 97/52 100 10/10/22 02:10 81 15 92/52 100 10/10/22 02:00 97.8 F 100 17 95/46 98 10/10/22 00:38 111 H 15 100/58 97 10/09/22 23:32 101 H 15 80/46 97 10/09/22 19:32 105 H 18 101/54 98 10/09/22 18:00 112 H 20 100/61 99 10/09/22 17:00 110 H 20 93/45 98 10/09/22 16:21 98.5 F 82/51 Intake and Output 10/09/22 10/10/22 10/10/22 22:59 06:59 14:59 Intake Total 620 Balance 620 Intake: Blood Product 620 Rc As-1 Unit 310 [id number] Rc As-1 Unit 310 [id number] Other: Weight 58.513 kg Results CBC & Chem 7: 10/10/22 08:41 10/10/22 08:41 Labs: Abnormal Lab Results - Last 24 Hours (Table) 10/09/22 10/09/22 10/09/22 Range/Units 17:00 17:10 17:10 RBC (3.80-5.40) m/uL Hgb (11.4-16.0) gm/dL Hct (34.0-46.0) % MCV 102.3 H (80.0-100.0) fL Lymphocytes # 0.6 L (1.0-4.8) k/uL Chloride 94 L (98-107) mmol/L Carbon Dioxide 40 H (22-30) mmol/L BUN 45 H (7-17) mg/dL Creatinine 0.46 L (0.52-1.04) mg/dL Glucose 121 H (74-99) mg/dL Calcium (8.4-10.2) mg/dL Magnesium 1.4 L (1.6-2.3) mg/dL Crossmatch See Detail 10/09/22 10/10/22 10/10/22 Range/Units 19:10 00:42 08:41 RBC 3.05 L 2.63 L (3.80-5.40) m/uL Hgb 9.9 L D 8.9 L (11.4-16.0) gm/dL Hct 31.4 L 26.3 L (34.0-46.0) % MCV 102.8 H 100.1 H (80.0-100.0) fL Lymphocytes # 0.9 L (1.0-4.8) k/uL Chloride (98-107) mmol/L Carbon Dioxide 42 H* (22-30) mmol/L BUN 34 H (7-17) mg/dL Creatinine 0.39 L (0.52-1.04) mg/dL Glucose 106 H (74-99) mg/dL Calcium 7.1 L (8.4-10.2) mg/dL Magnesium (1.6-2.3) mg/dL Crossmatch 10/10/22 Range/Units 08:41 RBC 3.33 L (3.80-5.40) m/uL Hgb 10.7 L (11.4-16.0) gm/dL Hct 32.9 L (34.0-46.0) % MCV (80.0-100.0) fL Lymphocytes # (1.0-4.8) k/uL Chloride (98-107) mmol/L Carbon Dioxide (22-30) mmol/L BUN (7-17) mg/dL Creatinine (0.52-1.04) mg/dL Glucose (74-99) mg/dL Calcium (8.4-10.2) mg/dL Magnesium (1.6-2.3) mg/dL Crossmatch
[2022-10-10] MEDS ORDERED: LIDOCAINE 1% (10MG/ML) FOR IV START ONE (13:33)
[2022-10-10] MEDS ORDERED: MIDAZOLAM 2 MG/2 ML VIAL ONE (13:33)
[2022-10-10] MEDS ORDERED: PROPOFOL 10 MG/ML 20 ML VIAL IV ONE (13:33)
[2022-10-10] MEDS ORDERED: SODIUM CHLORIDE 0.9% 500 ML 500 ML IV ONE ×2 (13:41)
[2022-10-10 13:55] VITALS: BMI 19.0
--- NOTE | 2022-10-10 14:06 | P.PCN ---
Date of Procedure: 10/10/22 Procedure(s) Performed: BRIEF HISTORY: Patient is a 62-year-old, pleasant, white female admitted hospital with multiple episodes of dark red stool the last 1 day duration. She dropped hemoglobin from 39 g/dL. She is hence scheduled for an upper endoscopy to evaluate further PROCEDURE PERFORMED: Esophagogastroduodenoscopy with biopsy. PREOPERATIVE DIAGNOSIS: Acute GI bleed. IV sedation per anesthesia. PROCEDURE: After informed consent was obtained, the patient was brought into the endoscopy unit. IV sedation was administered by Anesthesia under continuous monitoring. Initially the Olympus GIF-140 video endoscope was inserted into the mouth. Esophagus intubated without any difficulty. It was gradually advanced into the stomach and duodenum and carefully examined. The bulb and the duodenum had a 5 mm linear superficial ulceration with no active bleeding and the second part of the duodenum appeared normal. The scope at this time was withdrawn to the stomach, adequately insufflated with air, and upon careful examination, mucosa of the antrum, had mild gastritis and biopsies were done from this area. Because of the body, cardia and the fundus appeared normal. The scope was then withdrawn into the esophagus. The GE junction was located at 39 cm from the incisors. The esophagus appeared normal. There were no erosions or ulcerations seen and the patient tolerated the procedure well. IMPRESSION: 1. 5 mm linear duodenal bulbar ulcer with no active bleeding. 2. Mild antral gastritis. RECOMMENDATIONS: The findings of this examination were discussed with the patient . At this time will monitor CBC and continue Protonix 40 mg daily. Start her on clear liquid diet..
[2022-10-10 14:29] LABS: Carbon Dioxide 42 mmol/L (22-30)
[2022-10-10] MEDS ORDERED: SODIUM CHLORIDE 0.9% 1,000 ML IV ONE (15:15)
[2022-10-10 20:22] LABS: Glucose,Whole Blood 106 mg/dL (70-110)
[2022-10-10 21:36] LABS: ABG Base Excess 11.9 mmol/L; ABG Oxygen Saturation 96.6 % (94-97); ABG PO2 85 mmHg (83-108); ABG TCO2 44 mmol/L (19-24); Allen Test Performed? Yes
[2022-10-10 21:41] LABS: ABG PH 7.17 (7.35-7.45)
[2022-10-10 21:42] LABS: ABG HCO3 40 mmol/L (21-25); ABG PCO2 111 mmHg (35-45)
[2022-10-10] MEDS ORDERED: LORazepam 2 MG/ML INJ IV PRN (22:32)
[2022-10-10] MEDS: LORazepam 1 MG/0.5 ML VIAL IV PRN (22:49)
[2022-10-11] MEDS: LORazepam 1 MG/0.5 ML VIAL IV PRN ×7 (03:09→22:32)
[2022-10-11 04:24] LABS: Basophils % (A) 0 %; Eosinophils # (A) 0.1 k/uL (0-0.7); Eosinophils % (A) 1 %; HCT 31.4 % (34.0-46.0); HGB 10.1 gm/dL (11.4-16.0); Hypochromasia Moderate; Lymphocytes # (A) 0.9 k/uL (1.0-4.8); Lymphocytes % (A) 12 %; MCH 32.8 pg (25.0-35.0); MCHC 32.2 g/dL (31.0-37.0); MCV 101.6 fL (80.0-100.0); Macrocytosis Slight; Mean Platelet Volume 8.8; Monocytes # (A) 0.5 k/uL (0-1.0); Monocytes % (A) 7 %; Neutrophils # (A) 5.9 k/uL (1.3-7.7); Neutrophils % (A) 79 %; Platelet Count 136 k/uL (150-450); RBC 3.09 m/uL (3.80-5.40); RDW 14.7 % (11.5-15.5); WBC 7.5 k/uL (3.8-10.6)
[2022-10-11 04:33] LABS: African American GFR (CKD) >90 (>60 ml/min/1.73 sqM); Anion Gap -2 mmol/L; Blood Urea Nitrogen 22 mg/dL (7-17); Carbon Dioxide 40 mmol/L (22-30); Chloride 99 mmol/L (98-107); Glucose 72 mg/dL (74-99); Non-African American GFR(CKD) >90 (>60 ml/min/1.73 sqM); Potassium 3.8 mmol/L (3.5-5.1); Sodium 137 mmol/L (137-145)
--- NOTE | 2022-10-11 07:50 | CT ---
EXAMINATION TYPE: CT brain wo con CT DLP: 1173.4 mGycm, Automated exposure control for dose reduction was used. DATE OF EXAM: 10/11/2022 7:42 AM COMPARISON: CT facial bones 08/09/2015, CT IAC 08/09/2010. CLINICAL INDICATION:Female, 62 years old with history of lethargic, right side weakness. TECHNIQUE: Brain: Multiple axial CT images of the brain were obtained without IV contrast. Coronal and sagittal reformats reviewed FINDINGS: Brain: Extra-axial spaces: No abnormal extra-axial fluid collections. Ventricular system: Within normal limits Cerebral parenchyma: No acute intraparenchymal hemorrhage or mass effect. The bates-white junction is well differentiated. Cerebellum: Unremarkable. Mass effect: No evidence of midline shift. Intracranial vasculature: unremarkable Soft tissues: Normal. Calvarium/osseous structures: No depressed skull fracture. Paranasal sinuses and mastoid air cells: Clear Visualized orbits: Orbital contents are intact. IMPRESSION: No acute intracranial process.
[2022-10-11] MEDS: PANTOPRAZOLE 40 MG/10 ML VIAL IVP SCH ×2 (07:55→20:40)
[2022-10-11] MEDS: ALBUTEROL NEBULIZED 2.5 MG/3 ML INHALATION PRN ×2 (09:02→12:56)
--- NOTE | 2022-10-11 10:49 | XR ---
EXAMINATION TYPE: XR chest 1V portable DATE OF EXAM: 10/11/2022 COMPARISON: 06/08/2021 HISTORY: Hypoxia TECHNIQUE: Single frontal view of the chest is obtained. FINDINGS: Hyperinflation. Heart size normal with no pleural effusion or pneumothorax. No focal pneum onia. Arthropathy of the shoulders. Suspect a degree of chronic interstitial lung disease involving t he lung bases. Surgical clips overlying the right chest. IMPRESSION: 1. COPD with no definite acute infiltrate. 2. Correlate for chronic interstitial pulmonary fibrosis.
--- NOTE | 2022-10-11 11:51 | P.PN ---
Subjective Progress Note Date: 10/11/22 62-year-old female who sees Dr. Rodriguez as a primary. We see her today in the emergency room, room 3. The patient presented to the emergency department, on October 09, with a GI bleed. She apparently had bright red blood in her stool. She apparently had been having this same issue now for a day or so prior to admission. She noted blood every time he had a bowel movement. Also, her stools have been loose. The patient was seen by the ER physician, and I was called about her, for possible admission to the intensive care unit. Even though her vital signs were stable, the fact that she was having bright red blood per rectum, and the fact that she received 2 units of packed red blood cells, necessitated an admission. Currently, she is on 2 L of oxygen. She's getting saline at KVO. Early this past morning, she was vomiting up blood, and also passing dark jellylike stools from her rectum. The patient apparently does have a history of COPD, and does use home O2. She also has a history of migraine cephalgia, and osteoarthritis. She is scheduled for an EGD today. White count 6, hemoglobin 10.7, hematocrit 32.9, with a normal platelet count. Coagulation studies are normal. Sodium 141, potassium 4.4, chlorides 103, CO2 42, BUN 34, and creatinine 0.39. The patient is seen today 10/11/2022 in follow-up on the regular medical floor. She did have some significant respiratory distress last night. Arterial blood gases revealed a pO2 of 85, pCO2 of 111 and a pH of 7.17 on 28% FiO2. She was placed on BiPAP currently 12/5 and 35% FiO2. Chest x-ray reveals evidence of COPD but no acute pulmonary process. Suspect chronic interstitial pulmonary fibrosis at the lung bases. She was made a DO NOT RESUSCITATE/DO NOT INTUBATE CODE STATUS. Presently she is resting fairly comfortably in bed. No IV fluids. White count 7.5. Hemoglobin 10.1. Platelets 136. Sodium 137. Potassium 3.8. Bicarb 40. BUN 22. Creatinine 0.35. Glucose 72. Yesterday's EGD revealed a 5 mm linear duodenal bulbar ulcer with no active bleeding and mild antral gastritis. Computed tomography scan of the brain revealed no acute intracranial process. Objective - Vital Signs Vital signs: Vital Signs Temp 97.6 F 10/11/22 11:34 Pulse 94 10/11/22 11:34 Resp 21 10/11/22 11:34 BP 105/49 10/11/22 11:34 Pulse Ox 94 L 10/11/22 11:34 FiO2 35 10/11/22 11:34 Intake & Output 10/10/22 10/11/22 10/11/22 18:59 06:59 18:59 Intake Total 450 Output Total 600 Balance 450 -600 Weight 58.513 kg Intake: IV 450 Output: Urine 600 Other: Voiding Method Diaper Diaper External Catheter External Catheter # Voids 2 - Exam GENERAL EXAM: Arousable, 62-year-old female, on BiPAP 12/5 and 35% FiO2, comfortable in no apparent distress. HEAD: Normocephalic. EYES: Normal reaction of pupils, equal size. NOSE: Clear with pink turbinates. THROAT: No erythema or exudates. NECK: No masses, no JVD. CHEST: No chest wall deformity. LUNGS: Equal air entry with faint coarse crackles in the posterior bases. CVS: S1 and S2 normal with no audible murmur, regular rhythm. ABDOMEN: No hepatosplenomegaly, normal bowel sounds, no guarding or rigidity. SPINE: No scoliosis or deformity SKIN: No rashes CENTRAL NERVOUS SYSTEM: No focal deficits, tone is normal in all 4 extremities. EXTREMITIES: There is no peripheral edema. No clubbing, no cyanosis. Peripheral pulses are intact. - Labs CBC & Chem 7: 10/11/22 03:33 10/11/22 03:33 Labs: Abnormal Lab Results - Last 24 Hours (Table) 10/10/22 10/10/22 10/11/22 Range/Units 08:41 21:29 03:33 RBC 3.09 L (3.80-5.40) m/uL Hgb 10.1 L (11.4-16.0) gm/dL Hct 31.4 L (34.0-46.0) % MCV 101.6 H (80.0-100.0) fL Plt Count 136 L (150-450) k/uL Lymphocytes # 0.9 L (1.0-4.8) k/uL ABG pH 7.17 L* (7.35-7.45) ABG pCO2 111 H* (35-45) mmHg ABG HCO3 40 H* (21-25) mmol/L ABG Total CO2 44 H (19-24) mmol/L Carbon Dioxide 42 H* (22-30) mmol/L BUN (7-17) mg/dL Creatinine (0.52-1.04) mg/dL Glucose (74-99) mg/dL Calcium (8.4-10.2) mg/dL 10/11/ Range/Units 03:33 RBC (3.80-5.40) m/uL Hgb (11.4-16.0) gm/dL Hct (34.0-46.0) % MCV (80.0-100.0) fL Plt Count (150-450) k/uL Lymphocytes # (1.0-4.8) k/uL ABG pH (7.35-7.45) ABG pCO2 (35-45) mmHg ABG HCO3 (21-25) mmol/L ABG Total CO2 (19-24) mmol/L Carbon Dioxide 40 H (22-30) mmol/L BUN 22 H (7-17) mg/dL Creatinine 0.35 L (0.52-1.04) mg/dL Glucose 72 L (74-99) mg/dL Calcium 8.0 L (8.4-10.2) mg/dL Assessment and Plan Assessment: Acute gastrointestinal bleed, EGD from 10/10/2022 revealed a 5 mm linear duodenal bulbar ulcer with no active bleeding, mild antral gastritis. Anemia, status post 2 units of packed red blood cells. Current hemoglobin 10.1. Acute hypercapnic respiratory failure last evening secondary to an acute exacerbation of chronic obstructive pulmonary disease, required BiPAP support currently for 5 and 35% FiO2 Ongoing tobacco use. History of severe oxygen-dependent COPD. History of osteoarthritis. History of migraine cephalgia. Plan: The patient was seen and evaluated Chest x-ray, medications and labs reviewed Currently on BiPAP 12/5 and 35% FiO2 Prognosis is poor She is a DO NOT RESUSCITATE/DO NOT INTUBATE CODE STATUS We will continue to follow I have personally seen and examined the patient, performed the documentation and the assessment and plan as written. Number of minutes spent on the visit: 10.
[2022-10-11] MEDS ORDERED: IPRATROPIUM-ALBUTEROL 3 ML NEB INHALATION PRN (14:46)
--- NOTE | 2022-10-11 15:57 | P.PN ---
Subjective Progress Note Date: 10/11/22 Principal diagnosis: GI bleed This is a 62-year-old female who came into the emergency department yesterday evening with complaints of bloody diarrhea. Patient has a past medical history of COPD, she is currently on a prednisone taper dose for the last 11-2 weeks. She also states she takes Motrin as needed for pain. Yesterday she started having several episodes of diarrhea that then started to have maroon colored blood as well. She was becoming short of breath and lightheaded and presented to the emergency department for further evaluation. She currently is very sindy rgic, fading in and out of sleep during her interview. Nursing has reported that around 1:30 in the morning patient had multiple maroon colored bloody bowel movements. She had a drop in her hemoglobin from admission of 13.8-8.9. She has been given 2 units of blood. Repeat hemoglobin 10.7 this morning. She denies any previous history of peptic ulcer disease or GI bleed. Her last colonoscopy was with Dr. Salgado in 2015 which was aborted due to poor prep. She denies any anticoagulation use. She also had elevated BUN on admission consistent with possible upper GI bleed. 10/11/2022. Patient seen and examined today as a follow-up. Yesterday patient underwent an EGD for GI bleed. A 5 mm linear duodenal bulbar ulcer with no active bleeding was noted along with mild antral gastritis. Apparently the patient ended up having some increased shortness of breath and requiring increased oxygenation following her procedure continues to be extremely lethargic. Patient is now on BiPAP. She has not had any further active GI bleed. Hemoglobin is stable at 10.1. She is status post 2 units of blood. Patient has been made a NO CODE STATUS. Objective - Vital Signs Vital signs: Vital Signs Temp 98.2 F 10/11/22 07:52 Pulse 92 10/11/22 09:13 Resp 19 10/11/22 07:52 BP 95/44 10/11/22 07:52 Pulse Ox 93 L 10/11/22 07:52 FiO2 35 10/11/22 09:19 Intake & Output 10/10/22 10/11/22 10/11/22 18:59 06:59 18:59 Intake Total 450 Balance 450 Weight 58.513 kg Intake: IV 450 Other: Voiding Method Diaper Diaper External Catheter External Catheter # Voids 2 - Exam General appearance: The patient is obtunded, has BiPAP on. HET: Head is normocephalic and atraumatic. Conjunctiva pink. Sclera anicteric. Neck: Supple without lymphadenopathy. Abdomen: Soft, nontender, nondistended with bowel sounds. No guarding or rig idity. Extremities: Normal skin color and turgor. No pedal edema Skin: No rashes, no jaundice Neurological: Obtunded. - Labs CBC & Chem 7: 10/11/22 03:33 10/11/22 03:33 Labs: Abnormal Lab Results - Last 24 Hours (Table) 10/10/22 10/10/22 10/11/22 Range/Units 08:41 21:29 03:33 RBC 3.09 L (3.80-5.40) m/uL Hgb 10.1 L (11.4-16.0) gm/dL Hct 31.4 L (34.0-46.0) % MCV 101.6 H (80.0-100.0) fL Plt Count 136 L (150-450) k/uL Lymphocytes # 0.9 L (1.0-4.8) k/uL ABG pH 7.17 L* (7.35-7.45) ABG pCO2 111 H* (35-45) mmHg ABG HCO3 40 H* (21-25) mmol/L ABG Total CO2 44 H (19-24) mmol/L Carbon Dioxide 42 H* (22-30) mmol/L BUN (7-17) mg/dL Creatinine (0.52-1.04) mg/dL Glucose (74-99) mg/dL Calcium (8.4-10.2) mg/dL 10/11/22 Range/Units 03:33 RBC (3.80-5.40) m/uL Hgb (11.4-16.0) gm/dL Hct (34.0-46.0) % MCV (80.0-100.0) fL Plt Count (150-450) k/uL Lymphocytes # (1.0-4.8) k/uL ABG pH (7.35-7.45) ABG pCO2 (35-45) mmHg ABG HCO3 (21-25) mmol/L ABG Total CO2 (19-24) mmol/L Carbon Dioxide 40 H (22-30) mmol/L BUN 22 H (7-17) mg/dL Creatinine 0.35 L (0.52-1.04) mg/dL Glucose 72 L (74-99) mg/dL Calcium 8.0 L (8.4-10.2) mg/dL Assessment and Plan (1) GI bleed Narrative/Plan: 62-year-old female who presented to the emergency department with multiple episodes of diarrhea which then became bloody. She had multiple maroon colored stools throughout the night. She had a drop in her hemoglobin from 13.8 on admission to 8.9 yesterday evening. She's been given 2 units of blood. Patient continues to be symptomatic, very lethargic. Patient has been on prednisone taper dose for the last 1-2 weeks duration also using NSAIDs as needed. Possible etiologies include peptic ulcer disease, gastritis, esophagitis, AVM or other possible etiologies. Will proceed with upper endoscopy, patient scheduled for EGD this afternoon. Keep nothing by mouth. Yesterday patient underwent EGD with the 5 mm linear A duodenal bulbar ulcer with no active bleeding mild antral gastritis. Continue Protonix 40 mg daily diet as tolerated. Current Visit: Yes Status: Acute Code(s): K92.2 - GASTROINTESTINAL HEMORRHAGE, UNSPECIFIED SNOMED Code(s): 87411400 (2) Symptomatic anemia Current Visit: Yes Status: Acute Code(s): D64.9 - ANEMIA, UNSPECIFIED SNOMED Code(s): 443305963 Plan: 1. Continue symptomatic supportive care 2. Continue Protonix 40 mg daily 3. Avoid NSAIDs 4. Advance to full liquid diet and advance as tolerated Thank you for this consultation, we will sign off at this time. If gastroenterology is further needed please do not hesitate to call us. Dr. Angel Wiley I agree with the dictator's note, documented as a scribe by Alejandra Morfin.
[2022-10-11] MEDS: IPRATROPIUM-ALBUTEROL 3 ML NEB INHALATION SCH ×2 (16:31→19:57)
--- NOTE | 2022-10-11 17:00 | P.PN ---
Subjective Progress Note Date: 10/11/22 62-year-old female came in with complaints of blood in the stools or diarrhea along with the throwing up blood. Patient is drowsy and able to provide much of the history to me but she said she does take something for migraine denied taking any aspirin or any other blood thinners. Patient also complaining of minimal epigastric abdominal pain, as per the GI documentation patient apparently takes Motrin. Patient is also on prednisone taper. Patient was having maroon colored stools as well as bloody stools. Patient does have history of COPD uses 2 L of oxygen at home presently denied any shortness of breath cough. Since hemoglobin was 8.9 today with is 10.7 probably received blood transfusion 10/11/2022 Patient is monitored closely on stepdown unit. Overnight she developed respiratory distress and became lethargic. Brain CT was negative for acute changes. ABGs were completed showing pH of 7.17, pCO2 111, HCO3 40. Patient has been placed on BiPAP with FiO2 of 35%. Chest xray completed showing copd with no definite acute infiltrate and possible chronic interstitial pulmonary fibrosis. Patient has been started on bronchodilators and combination of pulmicort and perforomist. Hemoglobin remains stable at 10.1, no white count. Sodium 137, potassium 3.8, BUN 22, creatinine 0.35, calcium 8.0, magnesium 1.8. Unable to complete full review of systems patient is currently sedated on BiPAP PHYSICAL EXAMINATION: GENERAL: The patient is lethargic/sedated, currently on BiPAP. Well developed, well nourished. Pale. HEENT: Pupils are round and equally reacting to light. EOMI. No scleral icterus. No conjunctival pallor. Normocephalic, atraumatic. No pharyngeal erythema. No thyromegaly. CARDIOVASCULAR: S1 and S2 present. No murmurs, rubs, or gallops. PULMONARY: Diminished inspiratory and expiratory lung sounds. ABDOMEN: Soft, nontender, nondistended, normoactive bowel sounds. No palpable organomegaly. MUSCULOSKELETAL: No joint swelling or deformity. EXTREMITIES: No cyanosis, clubbing, or pedal edema. NEUROLOGICAL: Gross neurological examination did not reveal any focal deficits. SKIN: No rashes. Assessment and plan -Acute upper GI bleed: Secondary to possible peptic ulcer disease EGD showing antral gastritis with 5 mm linear duodenal bulbar ulcer with no active bleeding continues on IV protonix, HGb stable at 10.1 she is status post 2 units PRBC. -Acute Hypercapnic respiratory failure currently on BiPAP with FiO2 of 35% secondary to acute COPD exacerbation -Oxygen dependent COPD -History of migraines -Depression Continued nicotine use: Counseling was provided DVT prophylaxis: SCDs GI prophylaxis: Protonix Do not resuscitate /Do not intubate Plan: Patient will be monitored closely on medical floor, continues on BiPAP 10/29 with FiO2 of 35%. Continues on bronchodilators and inhalers. Recommend to continue off steroids secondary to acute gastritis. Prognosis remains poor. The impression and plan of care has been dictated by Nieves Barksdale, Nurse Practitioner as directed. Dr. Fabricio MD I have performed a history and physical examination and medical decision making of this patient, discussed the same with the dictator, and agree with the dictators assessment and plan as written, documented as a scribe. Based on total visit time, I have performed more than 50% of this visit. Objective - Vital Signs Vital signs: Vital Signs Temp 97.8 F 10/11/22 16:00 Pulse 96 10/11/22 16:43 Resp 21 10/11/22 16:00 BP 107/63 10/11/22 16:00 Pulse Ox 91 L 10/11/22 16:00 FiO2 35 10/11/22 16:31 Intake & Output 10/10/22 10/11/22 10/11/22 18:59 06:59 18:59 Intake Total 450 Output Total 600 Balance 450 -600 Weight 58.513 kg Intake: IV 450 Output: Urine 600 Other: Voiding Method Diaper Diaper External Catheter External Catheter # Voids 2 - Labs CBC & Chem 7: 10/11/22 03:33 10/11/22 03:33 Labs: Abnormal Lab Results - Last 24 Hours (Table) 10/10/22 10/11/22 10/11/22 Range/Units 21:29 03:33 03:33 RBC 3.09 L (3.80-5.40) m/uL Hgb 10.1 L (11.4-16.0) gm/dL Hct 31.4 L (34.0-46.0) % MCV 101.6 H (80.0-100.0) fL Plt Count 136 L (150-450) k/uL Lymphocytes # 0.9 L (1.0-4.8) k/uL ABG pH 7.17 L* (7.35-7.45) ABG pCO2 111 H* (35-45) mmHg ABG HCO3 40 H* (21-25) mmol/L ABG Total CO2 44 H (19-24) mmol/L Carbon Dioxide 40 H (22-30) mmol/L BUN 22 H (7-17) mg/dL Creatinine 0.35 L (0.52-1.04) mg/dL Glucose 72 L (74-99) mg/dL Calcium 8.0 L (8.4-10.2) mg/dL Assessment and Plan Time with Patient: Less than 30
[2022-10-11] MEDS: MAGNESIUM SULFATE-D5W PMX 1 GM in DEXTROSE/WATER 1 100ML.BAG IVPB SCH ×2 (17:29→18:46)
[2022-10-11] MEDS: BUDESONIDE 1 MG/2 ML NEBU INHALATION SCH (19:57)
[2022-10-11] MEDS: FORMOTEROL FUMARATE 20 MCG/2 ML NEBU INHALATION SCH (19:57)
[2022-10-12] MEDS: LORazepam 1 MG/0.5 ML VIAL IV PRN (02:24)
[2022-10-12] MEDS: FORMOTEROL FUMARATE 20 MCG/2 ML NEBU INHALATION SCH ×2 (07:40→20:42)
[2022-10-12] MEDS: BUDESONIDE 1 MG/2 ML NEBU INHALATION SCH ×2 (07:40→20:42)
[2022-10-12] MEDS: IPRATROPIUM-ALBUTEROL 3 ML NEB INHALATION SCH ×4 (07:41→20:42)
[2022-10-12] MEDS: PANTOPRAZOLE 40 MG/10 ML VIAL IVP SCH ×2 (09:36→20:23)
--- NOTE | 2022-10-12 12:11 | P.PN ---
Subjective Progress Note Date: 10/12/22 62-year-old female who sees Dr. Rodriguez as a primary. We see her today in the emergency room, room 3. The patient presented to the emergency department, on October 09, with a GI bleed. She apparently had bright red blood in her stool. She apparently had been having this same issue now for a day or so prior to admission. She noted blood every time he had a bowel movement. Also, her stools have been loose. The patient was seen by the ER physician, and I was called about her, for possible admission to the intensive care unit. Even though her vital signs were stable, the fact that she was having bright red blood per rectum, and the fact that she received 2 units of packed red blood cells, necessitated an admission. Currently, she is on 2 L of oxygen. She's getting saline at KVO. Early this past morning, she was vomiting up blood, and also passing dark jellylike stools from her rectum. The patient apparently does have a history of COPD, and does use home O2. She also has a history of migraine cephalgia, and osteoarthritis. She is scheduled for an EGD today. White count 6, hemoglobin 10.7, hematocrit 32.9, with a normal platelet count. Coagulation studies are normal. Sodium 141, potassium 4.4, chlorides 103, CO2 42, BUN 34, and creatinine 0.39. The patient is seen today 10/11/2022 in follow-up on the regular medical floor. She did have some significant respiratory distress last night. Arterial blood gases revealed a pO2 of 85, pCO2 of 111 and a pH of 7.17 on 28% FiO2. She was placed on BiPAP currently 12/5 and 35% FiO2. Chest x-ray reveals evidence of COPD but no acute pulmonary process. Suspect chronic interstitial pulmonary fibrosis at the lung bases. She was made a DO NOT RESUSCITATE/DO NOT INTUBATE CODE STATUS. Presently she is resting fairly comfortably in bed. No IV fluids. White count 7.5. Hemoglobin 10.1. Platelets 136. Sodium 137. Potassium 3.8. Bicarb 40. BUN 22. Creatinine 0.35. Glucose 72. Yesterday's EGD revealed a 5 mm linear duodenal bulbar ulcer with no active bleeding and mild antral gastritis. Computed tomography scan of the brain revealed no acute intracranial process. The patient is seen today 10/12/2022 in follow-up on the regular medical floor. He is somewhat confused. Pulling off her oxygen. Attempting to get out of bed unassisted. She is maintaining good O2 saturations in the upper 90s on 2 L/m per nasal cannula. She's afebrile. Hemodynamically stable. He is quite frail and cachectic. BMI of 19 kg/m. No noted GI bleeding. She is status post 2 units of packed red blood cells. Most recent hemoglobin 10.1. She is continued on DuoNeb inhalations, Pulmicort and Perforomist inhalations. She did require Ativan 0.5 mg IV 2:00 this morning for restlessness. Objective - Vital Signs Vital signs: Vital Signs Temp 97.9 F 10/12/22 09:44 Pulse 92 10/12/22 11:20 Resp 16 10/12/22 09:44 BP 90/46 10/12/22 09:44 Pulse Ox 98 10/12/22 11:10 FiO2 35 10/12/22 04:03 Intake & Output 10/11/22 10/12/22 10/12/22 18:59 06:59 18:59 Intake Total 370 Output Total 600 800 Balance -230 -800 Intake: Oral 370 Output: Urine 600 800 Other: Voiding Method Diaper Diaper Diaper External Catheter External Catheter External Catheter # Voids 1 # Bowel Movements 0 - Exam GENERAL EXAM: Awake, restless, 62-year-old female, on 2 L nasal cannula, comfortable in no apparent distress. HEAD: Normocephalic. EYES: Normal reaction of pupils, equal size. NOSE: Clear with pink turbinates. THROAT: No erythema or exudates. NECK: No masses, no JVD. CHEST: No chest wall deformity. LUNGS: Equal air entry with faint coarse crackles in the posterior bases. CVS: S1 and S2 normal with no audible murmur, regular rhythm. ABDOMEN: No hepatosplenomegaly, normal bowel sounds, no guarding or rigidity. SPINE: No scoliosis or deformity SKIN: No rashes CENTRAL NERVOUS SYSTEM: No focal deficits, tone is normal in all 4 extremities. EXTREMITIES: There is no peripheral edema. No clubbing, no cyanosis. Peripheral pulses are intact. - Labs CBC & Chem 7: 10/11/22 03:33 10/11/22 03:33 Assessment and Plan Assessment: Acute gastrointestinal bleed, EGD from 10/10/2022 revealed a 5 mm linear duodenal bulbar ulcer with no active bleeding, mild antral gastritis. Anemia, status post 2 units of packed red blood cells. Current hemoglobin 10.1. Acute hypercapnic respiratory failure secondary to an acute exacerbation of chronic obstructive pulmonary disease, improved and on 2 L nasal cannula Ongoing tobacco use. History of severe oxygen-dependent COPD. History of osteoarthritis. History of migraine cephalgia. Plan: The patient was seen and evaluated Medications reviewed Currently on 2 L nasal cannula Has home oxygen Prognosis is poor She is a DO NOT RESUSCITATE/DO NOT INTUBATE CODE STATUS Will most likely need subacute rehabilitation versus home with home care I have personally seen and examined the patient, performed the documentation and the assessment and plan as written. Number of minutes spent on the visit: 10.
[2022-10-12] MEDS: MAGNESIUM OXIDE 400 MG TAB PO SCH (15:04)
--- NOTE | 2022-10-12 16:36 | P.PN ---
Subjective Progress Note Date: 10/12/22 62-year-old female came in with complaints of blood in the stools or diarrhea along with the throwing up blood. Patient is drowsy and able to provide much of the history to me but she said she does take something for migraine denied taking any aspirin or any other blood thinners. Patient also complaining of minimal epigastric abdominal pain, as per the GI documentation patient apparently takes Motrin. Patient is also on prednisone taper. Patient was having maroon colored stools as well as bloody stools. Patient does have history of COPD uses 2 L of oxygen at home presently denied any shortness of breath cough. Since hemoglobin was 8.9 today with is 10.7 probably received blood transfusion 10/11/2022 Patient is monitored closely on stepdown unit. Overnight she developed respiratory distress and became lethargic. Brain CT was negative for acute changes. ABGs were completed showing pH of 7.17, pCO2 111, HCO3 40. Patient has been placed on BiPAP with FiO2 of 35%. Chest xray completed showing copd with no definite acute infiltrate and possible chronic interstitial pulmonary fibrosis. Patient has been started on bronchodilators and combination of pulmicort and perforomist. Hemoglobin remains stable at 10.1, no white count. Sodium 137, potassium 3.8, BUN 22, creatinine 0.35, calcium 8.0, magnesium 1.8. 10/12/2022 Patient evaluated today on medical floor she has been taken off Bipap and maintaining oxygen saturation on 2 L nasal cannula. Patients grandson is living with her currently. PT has recommended subacute rehab however patient is refusing at this time and would like to DC home. Will set up for discharge home tomorrow with homecare services. She is afebrile, heart rate 91, blood pressure today 96/55, 94% on 2L nasal cannula. Review of Systems Constitutional: Denied any fatigue denied any fever. Cardio vascular: denied any chest pain, palpitations Gastrointestinal: denied any nausea, vomiting, diarrhea Pulmonary: Denied any shortness of breath cough Neurologic denied any new focal deficits All inpatient medications were reviewed and appropriate changes in these medications as dictated in the interval history and assessment and plan. PHYSICAL EXAMINATION: GENERAL: The patient is lethargic/sedated, currently on BiPAP. Well developed, well nourished. Pale. HEENT: Pupils are round and equally reacting to light. EOMI. No scleral icterus. No conjunctival pallor. Normocephalic, atraumatic. No pharyngeal erythema. No thyromegaly. CARDIOVASCULAR: S1 and S2 present. No murmurs, rubs, or gallops. PULMONARY: Diminished inspiratory and expiratory lung sounds. ABDOMEN: Soft, nontender, nondistended, normoactive bowel sounds. No palpable organomegaly. MUSCULOSKELETAL: No joint swelling or deformity. EXTREMITIES: No cyanosis, clubbing, or pedal edema. NEUROLOGICAL: Gross neurological examination did not reveal any focal deficits. SKIN: No rashes. Assessment and plan -Acute upper GI bleed: Secondary to possible peptic ulcer disease EGD showing antral gastritis with 5 mm linear duodenal bulbar ulcer with no active bleeding continues on IV protonix, HGb stable at 10.1 she is status post 2 units PRBC. -Acute Hypercapnic respiratory failure weaned off bipap and maintaining oxygen saturation on nasal cannula -Oxygen dependent COPD -History of migraines -Depression Continued nicotine use: Counseling was provided DVT prophylaxis: SCDs GI prophylaxis: Protonix Do not resuscitate /Do not intubate Plan: Patient will be monitored closely on medical floor, continues on nasal cannula. Continues on bronchodilators and inhalers. Recommend to continue off steroids secondary to acute gastritis. Prognosis remains poor. Patient is refusing subacute rehab she would like to DC home. Homecare and PT will need to be set up . is currently out of state and grandson has been staying with her. The impression and plan of care has been dictated by Nieves Barksdale Nurse Practitioner as directed. Dr. Fabricio MD I have performed a history and physical examination and medical decision making of this patient, discussed the same with the dictator, and agree with the dictators assessment and plan as written, documented as a scribe. Based on total visit time, I have performed more than 50% of this visit. Objective - Vital Signs Vital signs: Vital Signs Temp 98.2 F 10/12/22 12:08 Pulse 91 10/12/22 12:08 Resp 16 10/12/22 12:08 BP 99/56 10/12/22 12:08 Pulse Ox 99 10/12/22 12:08 FiO2 35 10/12/22 04:03 Intake & Output 10/11/22 10/12/22 10/12/22 18:59 06:59 18:59 Intake Total 370 Output Total 600 800 Balance -230 -800 Intake: Oral 370 Output: Urine 600 800 Other: Voiding Method Diaper Diaper Diaper External Catheter External Catheter External Catheter # Voids 1 2 # Bowel Movements 0 - Labs CBC & Chem 7: 10/11/22 03:33 10/11/22 03:33 Assessment and Plan Time with Patient: Less than 30
[2022-10-12] MEDS ORDERED: LORazepam 2 MG/ML INJ IV PRN (19:14)
[2022-10-13] MEDS: BUDESONIDE 1 MG/2 ML NEBU INHALATION SCH (09:31)
[2022-10-13] MEDS: FORMOTEROL FUMARATE 20 MCG/2 ML NEBU INHALATION SCH (09:32)
[2022-10-13] MEDS: IPRATROPIUM-ALBUTEROL 3 ML NEB INHALATION SCH ×2 (09:32→10:58)
[2022-10-13] MEDS: PANTOPRAZOLE 40 MG/10 ML VIAL IVP SCH (09:55)
[2022-10-13] MEDS: MAGNESIUM OXIDE 400 MG TAB PO SCH (09:55)
[2022-10-13 11:14] VITALS: BP 99/59; PULSE 88; RESP 16; TEMP 98.8
--- NOTE | 2022-10-13 14:21 | P.DS ---
Providers Date of admission: 10/09/22 18:49 Attending physician: Mine Wilson Consults: 10/09/22 18:48 Consult Physician Urgent Consulting Provider: Halley Wiley Consult Reason/Comments: GI bleed Do you want consulting provider notified?: Yes 10/10/22 01:29 Consult Physician Urgent Consulting Provider: Arnaldo Pickering Reason/Comments: icu Do you want consulting provider notified?: Yes Primary care physician: Angel Rodriguez [facility] Course: Final Diagnosis -Acute upper GI bleed: Secondary to possible peptic ulcer disease EGD showing antral gastritis with 5 mm linear duodenal bulbar ulcer with no active bleeding. -Acute Hypercapnic respiratory failure weaned off bipap and maintaining oxygen saturation on nasal cannula -Oxygen dependent COPD -History of migraines -Depression Continued nicotine use: Counseling was provided Do not resuscitate /Do not intubate Discharge Disposition Patient is stable for discharge home with homecare and PT services. Overall prognosis remains guarded secondary to oxygen dependent COPD with ongoing nicotine use and noncompliance to oxygen. Patient is recommended to continue on IV protonix twice a day for one week and to continue on oral protonix 40 mg po daily. Close follow up with Dr. Angel Wiley recommended. Patient to also follow up with primary care provider and pulmonary services. Patient was recommended to discharge to subacute rehab which she has refused at this time. Her overall plan is to move to [place] where her currently is. Grandson is currently living with her at this time. Hemoglobin remains stable at 10.1. Patient is also discharged on oral magnesium. Recommend to repeat labs in 2 to 3 days. Total time taken in discharge planning greater than 35 minutes. Hospital Course 62-year-old female came in with complaints of blood in the stools or diarrhea along with the throwing up blood. Patient has been on oral steroid taper outpatient for history of COPD. She is oxygen dependent currently wearing 2 to 2.5 Liters of oxygen at home. She continues to smoke cigarettes daily. Patient also complaining of minimal epigastric abdominal pain, as per the GI documentation patient apparently takes Motrin. Patient was having maroon colored stools as well as bloody stools. Patient denies shortness of breath and cough on admission. Hemoglobin was found to be 13.8 on admission and patients hemoglobin did drop to 8.9 which she received 2 units of PRBC's and hemoglobin now remains stable at 10.1 She underwent EGD with Dr. Angel Wiley revealing possible peptic ulcer disease with antral gastritis and 5 mm linear duodenal bulb ulcer with no active bleeding. She was started on IV protonix. Postoperatively patient went into respiratory failure and was found to be hypercapnic on ABG with CO2 level of 111. She was placed on BIPAP overnight and started on breathing treatments and also budesonide and formoterol. Brain CT was also taken secondary to lethargy which was negative for acute changes. Patient improved on BIPAP ov ernight and was able to be weaned back down to 2 L nasal cannula which is what she wears at home. She was evaluated by pulmonary services. She is alert x 3 now. Patients grandson has been living with her as her is currently in [facility]. She was evaluated by physical therapy who recommended patient discharge to subacute rehab. Patient has refused rehab at this time she would like to discharge home. Palliative care services were discussed with patient, she is currently a do not resuscitate/do not intubate. Patient is only agreeable to home care and physical therapy on discharge which will be set up with [facility]. She is also discharged on oral magnesium and ok to resume oral steroid taper. Started on protonix oral and also symbicort. Patient given prescription to repeat CBC outpatient. 10/13/2022 Patient is evaluated today resting in bed. Denies shortness of breath, denies cough. Tolerating diet. No nausea, vomiting, or diarrhea. No further episodes of bloody or maroon colored stools. She is continued on 2L nasal cannula with oxygen saturation of 99%, she remains afebrile, heart rate 88, blood pressure 99/59, she does run on the lower side. Most recent labs showing white count of 7.5, hgb 10.1, platelet count 136, sodium 137, potassium 3.8, BUN 22, creatinine 0.35, magnesium 1.8. Lungs are clear, S1 S2 auscultated, focal neurological exam is negative. Patient is counseled extensively on discharge planning, importance of smoking cessation. Patient verbalizes that she will be quitting cigarettes on discharge. She has refused rehab on discharge. She has been up with walker with staff and reports she is able to ambulate. She lives with her grandson who helps take care of her. She would like to be discharged home today. Please see medication reconciliation for a list of current medication. Thank you for allowing us to participate in the care of this patient. The impression and plan of care has been dictated by Nieves Barksdale, Nurse Practitioner as directed. Dr. Fabricio MD I have performed a history and physical examination and medical decision making of this patient, discussed the same with the dictator, and agree with the dictators assessment and plan as written, documented as a scribe. Based on total visit time, I have performed more than 50% of this visit. Patient Condition at Discharge: Fair Plan - Discharge Summary Discharge Rx Participant: No New Discharge Prescriptions: New Pantoprazole Sodium [Protonix] 40 mg PO DIRECTED 30 Days #44 tab Ipratropium-Albuterol Nebulize [Duoneb 0.5 mg-3 mg/3 ml Soln] 3 ml INHALATION RT-QID PRN #40 each PRN Reason: Shortness Of Breath Or Wheezing Magnesium Oxide [Mag-Ox] 400 mg PO DAILY #15 tab Budesonide/Formoterol Fumarate [Symbicort 80-4.5 Mcg Inhaler] 1 puff INHALATION BID #1 each Continue Dextroamphetamine/Amphetamine [Adderall] 20 mg PO DAILY@0800 Loratadine 10 mg PO DAILY Dextroamphetamine/Amphetamine [Adderall] 10 mg PO DAILY@1400 ondansetron HCL [Zofran] 4 mg PO Q8H PRN PRN Reason: Nausea Albuterol Sulfate [Ventolin HFA] 2 puff INHALATION RT-Q6H PRN PRN Reason: Shortness Of Breath Albuterol Nebulized [Ventolin Nebulized] 2.5 mg INHALATION RT-QID PRN PRN Reason: Shortness Of Breath predniSONE See Taper PO DIRECTED Clobetasol Propionate/Emoll [Clobetasol Emulsion 0.05% Foam] 1 applic TOPICAL DAILY PRN PRN Reason: HAIR Discharge Medication List Dextroamphetamine/Amphetamine [Adderall] 10 mg PO DAILY@1400 06/08/19 [History] Dextroamphetamine/Amphetamine [Adderall] 20 mg PO DAILY@0800 06/08/19 [History] Loratadine 10 mg PO DAILY 06/08/19 [History] ondansetron HCL [Zofran] 4 mg PO Q8H PRN 06/08/19 [History] Albuterol Nebulized [Ventolin Nebulized] 2.5 mg INHALATION RT-QID PRN 10/09/22 [History] Albuterol Sulfate [Ventolin HFA] 2 puff INHALATION RT-Q6H PRN 10/09/22 [History] Clobetasol Propionate/Emoll [Clobetasol Emulsion 0.05% Foam] 1 applic TOPICAL DAILY PRN 10/09/22 [History] predniSONE See Taper PO DIRECTED 10/09/22 [History] Budesonide/Formoterol Fumarate [Symbicort 80-4.5 Mcg Inhaler] 1 puff INHALATION BID #1 each 10/13/22 [Rx] Ipratropium-Albuterol Nebulize [Duoneb 0.5 mg-3 mg/3 ml Soln] 3 ml INHALATION RT-QID PRN #40 each 10/13/22 [Rx] Magnesium Oxide [Mag-Ox] 400 mg PO DAILY #15 tab 10/13/22 [Rx] Pantoprazole Sodium [Protonix] 40 mg PO DIRECTED 30 Days #44 tab 10/13/22 [Rx] Follow up Appointment(s)/Referral(s): [facility], [NON-STAFF] - 1-2 Days (Home care will call you to schedule. ) Halley Wiley MD [STAFF PHYSICIAN] - 1 Week (Office is closed, please call to schedule follow up appointment. ) Arnaldo Pickering DO [Doctor of Osteopathic Medicine] - 1 Week (Office is closed, please call to schedule follow up appointment. ) Angel Rodriguez DO [Primary Care Provider] - 1-2 days (Office is closed, please call to schedule follow up appointment) Ambulatory/Diagnostic Orders: Complete Blood Count w/diff [LAB.AMB] Time Frame: 3 Days, Location: None [facility] cted Patient Instructions/Handouts: How to Stop Smoking (DC), Gastrointestinal Bleeding (DC), Diet for Stomach Ulcers and Gastritis (ED), COPD (Chronic Obstructive Pulmonary Disease) (DC) Activity/Diet/Wound Care/Special Instructions: Start symbicort inhaler twice a day Continue oral steroid taper from previous Continue with albuterol inhaler as needed Albuterol nebulized as needed For increased wheezing or shortness of breath use albuterol/ipratropium nebulized as needed every 4 to 6 hours Continue to wear home oxygen all the time Total smoking cessation advised Avoid non-steroidal anti-inflammatory medications Home with home care and home physical therapy [facility] Discharge Disposition: HOME WITH HOME HEALTH SERVICES
--- NOTE | 2022-10-13 15:27 | P.PN ---
Subjective Progress Note Date: 10/13/22 62-year-old female who sees Dr. Rodriguez as a primary. We see her today in the emergency room, room 3. The patient presented to the emergency department, on October 09, with a GI bleed. She apparently had bright red blood in her stool. She apparently had been having this same issue now for a day or so prior to admission. She noted blood every time he had a bowel movement. Also, her stools have been loose. The patient was seen by the ER physician, and I was called about her, for possible admission to the intensive care unit. Even though her vital signs were stable, the fact that she was having bright red blood per rectum, and the fact that she received 2 units of packed red blood cells, necessitated an admission. Currently, she is on 2 L of oxygen. She's getting saline at KVO. Early this past morning, she was vomiting up blood, and also passing dark jellylike stools from her rectum. The patient apparently does have a history of COPD, and does use home O2. She also has a history of migraine cephalgia, and osteoarthritis. She is scheduled for an EGD today. White count 6, hemoglobin 10.7, hematocrit 32.9, with a normal platelet count. Coagulation studies are normal. Sodium 141, potassium 4.4, chlorides 103, CO2 42, BUN 34, and creatinine 0.39. The patient is seen today 10/11/2022 in follow-up on the regular medical floor. She did have some significant respiratory distress last night. Arterial blood gases revealed a pO2 of 85, pCO2 of 111 and a pH of 7.17 on 28% FiO2. She was placed on BiPAP currently 12/5 and 35% FiO2. Chest x-ray reveals evidence of COPD but no acute pulmonary process. Suspect chronic interstitial pulmonary fibrosis at the lung bases. She was made a DO NOT RESUSCITATE/DO NOT INTUBATE CODE STATUS. Presently she is resting fairly comfortably in bed. No IV fluids. White count 7.5. Hemoglobin 10.1. Platelets 136. Sodium 137. Potassium 3.8. Bicarb 40. BUN 22. Creatinine 0.35. Glucose 72. Yesterday's EGD revealed a 5 mm linear duodenal bulbar ulcer with no active bleeding and mild antral gastritis. Computed tomography scan of the brain revealed no acute intracranial process. The patient is seen today 10/12/2022 in follow-up on the regular medical floor. He is somewhat confused. Pulling off her oxygen. Attempting to get out of bed unassisted. She is maintaining good O2 saturations in the upper 90s on 2 L/m per nasal cannula. She's afebrile. Hemodynamically stable. He is quite frail and cachectic. BMI of 19 kg/m. No noted GI bleeding. She is status post 2 units of packed red blood cells. Most recent hemoglobin 10.1. She is continued on DuoNeb inhalations, Pulmicort and Perforomist inhalations. She did require Ativan 0.5 mg IV 2:00 this morning for restlessness. The patient is seen today 10/12/2022 in follow-up on the regular medical floor. She is currently resting fairly comfortably in bed. Awake, alert. She remains quite frail and cachectic. Maintaining O2 saturations up to 99% on 2 L/m per nasal cannula. Afebrile. She is status post 2 units of packed red blood cells this admission. Most recent hemoglobin 10.1. She is continued on DuoNeb inhalations, Pulmicort and Perforomist inhalations. Objective - Vital Signs Vital signs: Vital Signs Temp 98.8 F 10/13/22 11:13 Pulse 88 10/13/22 11:13 Resp 16 10/13/22 11:13 BP 99/59 10/13/22 11:13 Pulse Ox 99 10/13/22 11:13 FiO2 35 10/12/22 04:03 Intake & Output 10/12/22 10/13/22 10/13/22 18:59 06:59 18:59 Intake Total 738 237 Output Total 500 500 Balance 238 -263 Weight 58.513 kg Intake: Oral 738 237 Output: Urine 500 500 Other: Voiding Method Diaper Diaper Diaper External Catheter External Catheter External Catheter # Voids 1 2 # Bowel Movements 1 - Exam GENERAL EXAM: Awake, alert 62-year-old female, on 2 L nasal cannula, comfortable in no apparent distress. HEAD: Normocephalic. EYES: Normal reaction of pupils, equal size. NOSE: Clear with pink turbinates. THROAT: No erythema or exudates. NECK: No masses, no JVD. CHEST: No chest wall deformity. LUNGS: Equal air entry with faint coarse crackles in the posterior bases. CVS: S1 and S2 normal with no audible murmur, regular rhythm. ABDOMEN: No hepatosplenomegaly, normal bowel sounds, no guarding or rigidity. SPINE: No scoliosis or deformity SKIN: No rashes CENTRAL NERVOUS SYSTEM: No focal deficits, tone is normal in all 4 extremities. EXTREMITIES: There is no peripheral edema. No clubbing, no cyanosis. Peripheral pulses are intact. - Labs CBC & Chem 7: 10/11/22 03:33 10/11/22 03:33 Assessment and Plan Assessment: Acute gastrointestinal bleed, EGD from 10/10/2022 revealed a 5 mm linear duoden al bulbar ulcer with no active bleeding, mild antral gastritis. Anemia, status post 2 units of packed red blood cells. Current hemoglobin 10.1. Acute hypercapnic respiratory failure secondary to an acute exacerbation of chronic obstructive pulmonary disease, improved and on 2 L nasal cannula Ongoing tobacco use. History of severe oxygen-dependent COPD. History of osteoarthritis. History of migraine cephalgia. Plan: The patient was seen and evaluated Medications reviewed Currently on 2 L nasal cannula Has home oxygen Overall prognosis is poor She is a DO NOT RESUSCITATE/DO NOT INTUBATE CODE STATUS The plan is for home with home care Follow-up in the office in 1 week I have personally seen and examined the patient, performed the documentation and the assessment and plan as written. Number of minutes spent on the visit: 10.
== END 2022-10-13 13:04 | disposition home health service (06) | DRG 377 ==
LOC: EC 16:19 → 5NMEDONC 18:49 → 3SCARD 20:22 → 2SICU 10-10 01:51 → 3SCARD 10-10 14:46
PROVIDERS: ADMIT Hospitalist; ATTEND Hospitalist
PROC: 30233N1 Transfusion of Nonautologous Red Blood Cells into Peripheral Vein, Percutaneous Approach (ICD-10-PCS; 2022-10-10)
PROC: 0DB78ZX Excision of Stomach, Pylorus, Via Natural or Artificial Opening Endoscopic, Diagnostic (ICD-10-PCS; principal; 2022-10-10 08:30)
PROC: 5A09457 Assistance with Respiratory Ventilation, 24-96 Consecutive Hours, Continuous Positive Airway Pressure (ICD-10-PCS; 2022-10-11)
DX: K26.4 Chronic or unspecified duodenal ulcer with hemorrhage (principal); J96.02 Acute respiratory failure with hypercapnia; J44.1 Chronic obstructive pulmonary disease with (acute) exacerbation; Z68.1 Body mass index [BMI] 19.9 or less, adult; J84.9 Interstitial pulmonary disease, unspecified; K29.01 Acute gastritis with bleeding; Z66 Do not resuscitate; F32.A Depression, unspecified; G43.909 Migraine, unspecified, not intractable, without status migrainosus; D64.9 Anemia, unspecified; Z99.81 Dependence on supplemental oxygen; E83.42 Hypomagnesemia; F17.210 Nicotine dependence, cigarettes, uncomplicated; Z79.899 Other long term (current) drug therapy; Z88.5 Allergy status to narcotic agent; Z90.710 Acquired absence of both cervix and uterus; Z71.6 Tobacco abuse counseling; Z89.422 Acquired absence of other left toe(s)
CPT/HCPCS: 36415; 36430; 36600; 43239; 70450; 71045; 80048; 80053; 82805; 83735; 84484; 85025; 85610; 85730; 86850; 86900; 86901; 86920; 88305; 94640; 94660; 94760; 96361; 96365; 96366; 96375; 99291

== ENCOUNTER 2024-01-01 02:27 | Inpatient (IN) | payer MEDICARE, OTHER ==
[2024-01-01 04:08] LABS: Basophils % (A) 1 %; Eosinophils # (A) 0.3 k/uL (0-0.7); Eosinophils % (A) 3 %; HCT 36.2 % (34.0-46.0); HGB 11.5 gm/dL (11.4-16.0); Lymphocytes # (A) 0.7 k/uL (1.0-4.8); Lymphocytes % (A) 9 %; MCH 31.8 pg (25.0-35.0); MCHC 31.9 g/dL (31.0-37.0); MCV 99.8 fL (80.0-100.0); Mean Platelet Volume 7.7; Monocytes # (A) 0.4 k/uL (0-1.0); Monocytes % (A) 5 %; Neutrophils # (A) 6.3 k/uL (1.3-7.7); Neutrophils % (A) 81 %; Platelet Count 189 k/uL (150-450); RBC 3.63 m/uL (3.80-5.40); RDW 12.1 % (11.5-15.5); WBC 7.7 k/uL (3.8-10.6)
[2024-01-01 04:18] LABS: ALT 17 U/L (4-34); AST 27 U/L (14-36); African American GFR (CKD) >90 (>60 ml/min/1.73 sqM); Alkaline Phosphatase 73 U/L (38-126); Blood Urea Nitrogen 15 mg/dL (7-17); Calcium 9.4 mg/dL (8.4-10.2); Chloride 96 mmol/L (98-107); Glucose 111 mg/dL (74-99); Non-African American GFR(CKD) >90 (>60 ml/min/1.73 sqM); Sodium 142 mmol/L (137-145); Total Bilirubin 0.3 mg/dL (0.2-1.3); Total Protein 6.5 g/dL (6.3-8.2)
[2024-01-01 04:26] LABS: Anion Gap 5 mmol/L
[2024-01-01 04:27] LABS: NT-Pro-B-Type Natriuretic Pept 62 pg/mL
[2024-01-01 04:31] LABS: Carbon Dioxide 41 mmol/L (22-30)
[2024-01-01] MEDS: IPRATROPIUM-ALBUTEROL 3 ML NEB INHALATION STA (05:22)
[2024-01-01] MEDS: methylPREDNISolone SOD SUCCI 125 MG/2 ML VIAL IV STA (05:45)
[2024-01-01] MEDS: SODIUM CHLORIDE 0.9% 500 ML 500 ML IV ONE (05:46)
[2024-01-01] MEDS ORDERED: NALOXONE 0.4 MG/ML 1 ML VIAL IV PRN (05:56)
--- NOTE | 2024-01-01 05:56 | ED ---
SOB HPI - General Chief Complaint: Shortness of Breath Stated Complaint: Difficulty Breathing Time Seen by Provider: 01/01/24 02:59 Source: patient, EMS Mode of arrival: EMS Limitations: no limitations - History of Present Illness Initial Comments: 63-year-old female with past medical history of COPD who wears 3 L home O2 who presents to the emergency department reporting shortness of breath. States for the past couple of days she has been extremely short of breath. Anytime she gets up and ambulates, her saturations dropped into the 70s. She has been using her breathing treatments without any improvement in her symptoms. Denies fevers, chills or cough. Does admit to some nausea with diarrhea. Denies any sick contacts. She does not take any steroids. She does follow with Dr. Pickering. She denies any chest pain. No history of cardiac disease. No other alleviating, precipitating or modifying factors - Related Data Home Medications Medication Instructions Recorded Confirmed Loratadine 10 mg PO DAILY 06/08/19 01/01/24 Cholecalciferol [Vitamin D3 (25 50 mcg PO DAILY 01/01/24 01/01/24 Mcg = 1000 Iu)] Cyanocobalamin (Vitamin B-12) 1,000 mcg PO DAILY 01/01/24 01/01/24 [Vitamin B-12] Vitamin E (Dl,Tocopheryl Acet) 400 unit PO DAILY 01/01/24 01/01/24 [Vitamin E (400 Iu = 180 mg)] Previous Rx's Medication Instructions Recorded Magnesium Oxide [Mag-Ox] 400 mg PO DAILY #15 tab 10/13/22 Acetaminophen Tab [Tylenol] 1,000 mg PO Q6HR PRN tab 01/03/24 Budesonide-Formot 160-4.5 Mcg 2 puff INHALATION RT-BID 30 Days 01/03/24 [Symbicort 160-4.5 Mcg Inhaler] #1 each Ipratropium-Albuterol Nebulize 3 ml INHALATION RT-QID #100 each 01/03/24 [Duoneb 0.5 mg-3 mg/3 ml Soln] predniSONE 10 mg PO DIRECTED #30 tab 01/03/24 Allergies Allergy/AdvReac Type Severity Reaction Status Date / Time codeine AdvReac SEVERE Verified 01/01/24 08:30 HEADACHE , VOMITING morphine AdvReac Vomiting, Verified 01/01/24 08:30 SEVERE HEADACHE Review of Systems ROS Statement: Those systems with pertinent positive or pertinent negative responses have been documented in the HPI. ROS Other: All systems not noted in ROS Statement are negative. Past Medical History Past Medical History: Asthma, COPD, Osteoarthritis (OA) Additional Past Medical History / Comment(s): MIGRAINE HEADACHE , History of Any Multi-Drug Resistant Organisms: None Reported Past Surgical History: Section, Hysterectomy Additional Past Surgical History / Comment(s): right shoulder X2 , bilateral foot, toe amputation on the left foot , Past Anesthesia/Blood Transfusion Reactions: No Reported Reaction Additional Past Anesthesia/Blood Transfusion Reaction / Comment(s): WITH CODEINE OR MORPHINE- VOMITING AND HEADACHE Past Psychological History: Depression Smoking Status: Current every day smoker Past Alcohol Use History: Rare Past Drug Use History: None Reported - Past Family History Mother Family Medical History: Deep Vein Thrombosis (DVT) General Exam Limitations: no limitations General appearance: alert, in no apparent distress Head exam: Present: atraumatic, normocephalic, normal inspection Eye exam: Present: normal appearance, PERRL, EOMI. Absent: scleral icterus, conjunctival injection, periorbital swelling ENT exam: Present: normal exam, mucous membranes moist Neck exam: Present: normal inspection. Absent: tenderness, meningismus, lymphadenopathy Respiratory exam: Present: decreased breath sounds, other (Conversational dyspnea). Absent: respiratory distress, wheezes, rales, rhonchi, stridor Cardiovascular Exam: Present: regular rate, normal rhythm, normal heart sounds. Absent: systolic murmur, diastolic murmur, rubs, gallop, clicks GI/Abdominal exam: Present: soft, normal bowel sounds. Absent: distended, tenderness, guarding, rebound, rigid Extremities exam: Present: normal inspection, full ROM, normal capillary refill. Absent: tenderness, pedal edema, joint swelling, calf tenderness Back exam: Present: normal inspection Neurological exam: Present: alert, oriented X3, CN II-XII intact Psychiatric exam: Present: normal affect, normal mood Skin exam: Present: warm, dry, intact, normal color. Absent: rash Course Vital Signs 01/01/24 01/01/24 01/01/24 02:28 02:29 03:00 Temperature 98.5 F Pulse Rate 102 H Respiratory 22 Rate Blood Pressure 136/62 136/62 O2 Sat by Pulse 95 91 L Oximetry 01/01/24 01/01/24 01/01/24 04:00 05:00 05:25 Temperature Pulse Rate 84 Respiratory Rate Blood Pressure 119/47 124/59 O2 Sat by Pulse 97 Oximetry 01/01/24 01/01/24 01/01/24 05:30 05:37 06:00 Temperature Pulse Rate 88 91 Respiratory 20 Rate Blood Pressure 107/81 107/81 O2 Sat by Pulse 98 Oximetry 01/01/24 01/01/24 01/01/24 06:10 07:00 08:00 Temperature 98.3 F Pulse Rate 90 Respiratory 20 Rate Blood Pressure 121/66 121/66 128/56 O2 Sat by Pulse 99 96 96 Oximetry 01/01/24 01/01/24 01/01/24 09:00 10:00 10:10 Temperature Pulse Rate 79 Respiratory 18 Rate Blood Pressure 102/57 119/50 116/47 O2 Sat by Pulse 96 95 96 Oximetry 01/01/24 01/01/24 01/01/24 11:00 11:51 12:00 Temperature Pulse Rate 82 85 Respiratory Rate Blood Pressure 116/47 92/40 O2 Sat by Pulse 95 95 Oximetry 01/01/24 01/01/24 01/01/24 13:00 14:03 15:00 Temperature Pulse Rate 81 87 Respiratory 18 22 Rate Blood Pressure 113/67 O2 Sat by Pulse 96 95 95 Oximetry 01/01/24 01/01/24 01/01/24 15:35 15:46 16:00 Temperature Pulse Rate 89 88 84 Respiratory 22 Rate Blood Pressure 108/47 O2 Sat by Pulse 95 Oximetry 01/01/24 01/01/24 01/01/24 17:00 18:00 19:00 Temperature Pulse Rate 84 86 84 Respiratory 24 24 22 Rate Blood Pressure 108/60 111/49 109/58 O2 Sat by Pulse 95 96 97 Oximetry Medical Decision Making - Medical Decision Making Was pt. sent in by a medical professional or institution (, PA, TICKET COLLECTOR OR USHER, urgent care, hospital, or fdc...) When possible be specific @ -No Did you speak to anyone other than the patient for history (EMS, parent, family, police, friend...)? What history was obtained from this source @ -No Did you review nursing and triage notes (agree or disagree)? Why? @ -I reviewed and agree with nursing and triage notes Were old charts reviewed (outside hosp., previous admission, EMS record, old EKG, old radiological studies, urgent care reports/EKG's, fdc records)? Report findings @ -No old charts were reviewed Differential Diagnosis (chest pain, altered mental status, abdominal pain women, abdominal pain men, vaginal bleeding, weakness, fever, dyspnea, syncope, headache, dizziness, GI bleed, back pain, seizure, CVA, palpatations, mental health, musculoskeletal)? @ -Differential Dyspnea: Coronary syndrome, arrhythmia, tamponade, asthma, COPD, pulmonary embolism, pneumonia, pneumothorax, pulmonary effusion, anaphylaxis, diabetic ketoacidosis, flailed chest, pulmonary contusion, diaphragmatic rupture, anemia, neuromuscular, this is not meant to be an all-inclusive list. EKG interpreted by me (3pts min.). @ -Not done X-rays interpreted by me (1pt min.). @ -Yes and demonstrates COPD changes CT interpreted by me (1pt min.). @ -None done U/S interpreted by me (1pt. min.). @ -None done What testing was considered but not performed or refused? (CT, X-rays, U/S, labs)? Why? @ -None What meds were considered but not given or refused? Why? @ -None Did you discuss the management of the patient with other professionals (professionals i.e. , PA, TICKET COLLECTOR OR USHER, lab, RT, psych nurse, social media project manager, evs tech, teacher, juvenile detention officer, insurance case manager)? Give summary @ -Discussed care with Kirti from [facility] Was smoking cessation discussed for >3mins.? @ -No Was critical care preformed (if so, how long)? @ -No Were there social determinants of health that impacted care today? How? (Homelessness, low income, unemployed, alcoholism, drug addiction, transportation, low edu. Level, literacy, decrease access to med. care, longterm, rehab)? @ -No Was there de-escalation of care discussed even if they declined (Discuss DNR or withdrawal of care, Hospice)? DNR status @ -No What co-morbidities impacted this encounter? (DM, HTN, Smoking, COPD, CAD, Cancer, CVA, ARF, Chemo, Hep., AIDS, mental health diagnosis, sleep apnea, morbid obesity)? @ -COPD Was patient admitted / discharged? Hospital course, mention meds given and route, prescriptions, significant lab abnormalities, going to OR and other pertinent info. @ -Admitted. Upon arrival patient seen and evaluated in room 19. Thorough history and physical exam was performed. Patient does have conversational dyspnea. I did order a breathing treatment. She had already been given 1 by EMS. Laboratory studies are conducted. Chest x-ray was performed. Upon return the results are discussed with patient. As she does have continued increased work of breathing I did recommend admission for which the patient was agreeable. Spoke with [facility] for admission Undiagnosed new problem with uncertain prognosis? @ -No Drug Therapy requiring intensive monitoring for toxicity (Heparin, Nitro, Insulin, Cardizem)? @ -No Were any procedures done? @ -No Diagnosis/symptom? @ -Acute respiratory insufficiency, COPD exacerbation, chronic respiratory failure Acute, or Chronic, or Acute on Chronic? @ -Acute on chronic Uncomplicated (without systemic symptoms) or Complicated (systemic symptoms)? @ -Complicated Side effects of treatment? @ -No Exacerbation, Progression, or Severe Exacerbation? @ -Yes Poses a threat to life or bodily function? How? (Chest pain, USA, ID, pneumonia, PE, COPD, DKA, ARF, appy, cholecystitis, CVA, Diverticulitis, Homicidal, Suicidal, threat to staff... and all critical care pts) @ -No - Lab Data Result diagrams: 01/03/24 07:18 01/03/24 07:18 Lab Results 01/01/24 01/01/24 01/01/24 Range/Units 03:45 03:45 03:45 WBC 7.7 (3.8-10.6) k/uL RBC 3.63 L (3.80-5.40) m/uL Hgb 11.5 (11.4-16.0) gm/dL Hct 36.2 (34.0-46.0) % MCV 99.8 (80.0-100.0) fL MCH 31.8 (25.0-35.0) pg MCHC 31.9 (31.0-37.0) g/dL RDW 12.1 (11.5-15.5) % Plt Count 189 (150-450) k/uL MPV 7.7 Neutrophils % 81 % Lymphocytes % 9 % Monocytes % 5 % Eosinophils % 3 % Basophils % 1 % Neutrophils # 6.3 (1.3-7.7) k/uL Lymphocytes # 0.7 L (1.0-4.8) k/uL Monocytes # 0.4 (0-1.0) k/uL Eosinophils # 0.3 (0-0.7) k/uL Basophils # 0.0 (0-0.2) k/uL Sodium 142 (137-145) mmol/L Potassium 4.0 (3.5-5.1) mmol/L Chloride 96 L (98-107) mmol/L Carbon Dioxide 41 H* (22-30) mmol/L Anion Gap 5 mmol/L BUN 15 (7-17) mg/dL Creatinine 0.41 L (0.52-1.04) mg/dL Est GFR (CKD-EPI)AfAm >90 (>60 ml/min/1.73 sqM) Est GFR (CKD-EPI)NonAf >90 (>60 ml/min/1.73 sqM) Glucose 111 H (74-99) mg/dL Plasma Lactic Acid Scooby 0.6 L (0.7-2.0) mmol/L Calcium 9.4 (8.4-10.2) mg/dL Total Bilirubin 0.3 (0.2-1.3) mg/dL AST 27 (14-36) U/L ALT 17 (4-34) U/L Alkaline Phosphatase 73 (38-126) U/L Troponin I (0.000-0.034) ng/mL NT-Pro-B Natriuret Pep 62 pg/mL Total Protein 6.5 (6.3-8.2) g/dL Albumin 4.0 (3.5-5.0) g/dL Influenza Type A (PCR) (Not Detectd) Influenza Type B (PCR) (Not Detectd) RSV (PCR) (Not Detectd) SARS-CoV-2 (PCR) (Not Detectd) 01/01/24 01/01/24 Range/Units 03:45 03:45 WBC (3.8-10.6) k/uL RBC (3.80-5.40) m/uL Hgb (11.4-16.0) gm/dL Hct (34.0-46.0) % MCV (80.0-100.0) fL MCH (25.0-35.0) pg MCHC (31.0-37.0) g/dL RDW (11.5-15.5) % Plt Count (150-450) k/uL MPV Neutrophils % % Lymphocytes % % Monocytes % % Eosinophils % % Basophils % % Neutrophils # (1.3-7.7) k/uL Lymphocytes # (1.0-4.8) k/uL Monocytes # (0-1.0) k/uL Eosinophils # (0-0.7) k/uL Basophils # (0-0.2) k/uL Sodium (137-145) mmol/L Potassium (3.5-5.1) mmol/L Chloride (98-107) mmol/L Carbon Dioxide (22-30) mmol/L Anion Gap mmol/L BUN (7-17) mg/dL Creatinine (0.52-1.04) mg/dL Est GFR (CKD-EPI)AfAm (>60 ml/min/1.73 sqM) Est GFR (CKD-EPI)NonAf (>60 ml/min/1.73 sqM) Glucose (74-99) mg/dL Plasma Lactic Acid Scooby (0.7-2.0) mmol/L Calcium (8.4-10.2) mg/dL Total Bilirubin (0.2-1.3) mg/dL AST (14-36) U/L ALT (4-34) U/L Alkaline Phosphatase (38-126) U/L Troponin I <0.012 (0.000-0.034) ng/mL NT-Pro-B Natriuret Pep pg/mL Total Protein (6.3-8.2) g/dL Albumin (3.5-5.0) g/dL Influenza Type A (PCR) Not Detected (Not Detectd) Influenza Type B (PCR) Not Detected (Not Detectd) RSV (PCR) Not Detected (Not Detectd) SARS-CoV-2 (PCR) Not Detected (Not Detectd) Disposition Clinical Impression: Acute exacerbation of chronic obstructive pulmonary disease Disposition: ADMITTED IP TO THIS [facility] Condition: Stable Is patient prescribed a controlled substance at d/c from ED?: No Time of Disposition: 05:53 Decision to Admit Reason: Admit from EC Decision Date: 01/01/24 Decision Time: 05:53
--- NOTE | 2024-01-01 06:59 | XR ---
EXAM: XR Chest, 2 Views CLINICAL HISTORY: ITS.REASON XR Reason: difficulty breathing TECHNIQUE: Frontal and lateral views of the chest. COMPARISON: 10/11/22 FINDINGS: Lungs: Unremarkable. No consolidation. Pleural space: Unremarkable. No pneumothorax. Heart: Unremarkable. No cardiomegaly. Mediastinum: Unremarkable. Normal mediastinal contour. Bones/joints: Stable IMPRESSION: No acute findings in the chest.
[2024-01-01] MEDS: ENOXAPARIN 40 MG/0.4 ML SYRINGE SQ SCH (10:15)
[2024-01-01] MEDS: AZITHROMYCIN 500 MG TAB PO SCH (10:16)
[2024-01-01] MEDS: ACETAMINOPHEN TAB 500 MG TAB PO PRN (10:16)
[2024-01-01] MEDS: SODIUM CHLORIDE 0.9% 1,000 ML IV SCH (10:19)
[2024-01-01] MEDS: IPRATROPIUM-ALBUTEROL 3 ML NEB INHALATION SCH (11:49)
[2024-01-01] MEDS: methylPREDNISolone SOD SUCCI 125 MG/2 ML VIAL IV SCH (13:07)
[2024-01-01] MEDS ORDERED: DEXTROSE 50% SYRINGE 50 ML IVP PRN (13:14)
[2024-01-01] MEDS ORDERED: ALPRAZolam 0.25 MG TAB PO PRN (13:15)
--- NOTE | 2024-01-01 14:06 | P.CNPUL ---
History of Present Illness Consult date: 01/01/24 Reason for consult: dyspnea, COPD History of present illness: 63-year-old female patient with a known history of COPD who states that she quit smoking around 2 weeks ago. She is oxygen dependent and patient uses oxygen at 3 L/min nasal cannula. No other maintenance respiratory medication. The patient used to use Symbicort in the past and she was unable to get the medication due to loss of insurance. She presented to the emergency as the patient was unable to perform activities of day-to-day life and she was getting progressively more short of breath. Denied having any chest pain. No pleurisy or hemoptysis. No cough or sputum production. No reported fever chills or night sweats. No altered mentation. In the emergency department, the patientWas placed on oxygen and currently she is on 4 L of O2 nasal cannula. The chest x-ray was done that showed no acute abnormalities and the patient had no consolidation or airspace disease. The patient was hemodynamically stable. The WBC count was at 7.7 with a hemoglobin 11.5. The viral panel was negative. Sodium is at 142 with a potassium of 4 and a serum bicarb is 41 with a BUN of 15 and a creatinine of 0.4. The patient is currently on bronchodilators. The patient was started also on IV Solu-Medrol, Symbicort and empiric antibiotic coverage with Zithromax. No edema lower extremities. No history of any cardiac disease. Review of Systems Constitutional: Reports as per HPI Eyes: denies as per HPI, denies blurred vision, denies bulging eye, denies decreased vision, denies diplopia, denies discharge, denies dry eye, denies irritation, denies itching, denies pain, denies photophobia, denies loss of peripheral vision, denies loss of vision, denies tunnel vision/blind spots Ears: deny: decreased hearing, ear discharge, earache, tinnitus Ears, nose, mouth and throat: Reports as per HPI Breasts: absent: as per HPI, change in shape, gynecomastia, masses, nipple discharge, pain, skin changes, swelling Cardiovascular: Reports decreased exercise tolerance, Reports dyspnea on exertion, Reports shortness of breath Respiratory: Reports cough, Reports dyspnea Gastrointestinal: Reports as per HPI Genitourinary: Reports as per HPI Menstruation: Reports as per HPI Musculoskeletal: Reports as per HPI Musculoskeletal: absent: ankle pain, ankle stiffness, ankle swelling Integumentary: Reports as per HPI Neurological: Reports as per HPI Psychiatric: Reports as per HPI Endocrine: Reports as per HPI Past Medical History Past Medical History: COPD, Osteoarthritis (OA) Additional Past Medical History / Comment(s): MIGRAINE HEADACHE , History of Any Multi-Drug Resistant Organisms: None Reported Past Surgical History: Section, Hysterectomy Additional Past Surgical History / Comment(s): right shoulder X2 , bilateral foot, toe amputation on the left foot , Past Anesthesia/Blood Transfusion Reactions: No Reported Reaction Additional Past Anesthesia/Blood Transfusion Reaction / Comment(s): WITH CODEINE OR MORPHINE- VOMITING AND HEADACHE Past Psychological History: Depression Smoking Status: Current every day smoker Past Alcohol Use History: Rare Past Drug Use History: None Reported - Past Family History Mother Family Medical History: Deep Vein Thrombosis (DVT) Medications and Allergies Home Medications Medication Instructions Recorded Confirmed Type Loratadine 10 mg PO DAILY 06/08/19 01/01/24 History Magnesium Oxide [Mag-Ox] 400 mg PO DAILY #15 tab 10/13/22 01/01/24 Rx Cholecalciferol [Vitamin D3 (25 50 mcg PO DAILY 01/01/24 01/01/24 History Mcg = 1000 Iu)] Cyanocobalamin (Vitamin B-12) 1,000 mcg PO DAILY 01/01/24 01/01/24 History [Vitamin B-12] Vitamin E (Dl,Tocopheryl Acet) 400 unit PO DAILY 01/01/24 01/01/24 History [Vitamin E (400 Iu = 180 mg)] Allergies Allergy/AdvReac Type Severity Reaction Status Date / Time codeine AdvReac SEVERE Verified 01/01/24 08:30 HEADACHE , VOMITING morphine AdvReac Vomiting, Verified 01/01/24 08:30 SEVERE HEADACHE Physical Exam Vitals: Vital Signs Temp Pulse Resp BP Pulse Ox 01/01/24 06:10 98.3 F 90 20 121/66 99 01/01/24 05:37 91 20 107/81 98 01/01/24 05:30 88 01/01/24 05:25 84 01/01/24 02:28 98.5 F 102 H 22 136/62 95 Intake and Output 12/31/23 01/01/24 01/01/24 22:59 06:59 14:59 Other: Weight 65.771 kg GENERAL EXAM: Awake, alert 62-year-old female, on 4 L nasal cannula, comfortable in no apparent distress. HEAD: Normocephalic. EYES: Normal reaction of pupils, equal size. NOSE: Clear with pink turbinates. THROAT: No erythema or exudates. NECK: No masses, no JVD. CHEST: No chest wall deformity. LUNGS: Equal air entry with faint coarse crackles in the posterior bases. CVS: S1 and S2 normal with no audible murmur, regular rhythm. ABDOMEN: No hepatosplenomegaly, normal bowel sounds, no guarding or rigidity. SPINE: No scoliosis or deformity SKIN: No rashes CENTRAL NERVOUS SYSTEM: No focal deficits, tone is normal in all 4 extremities. EXTREMITIES: There is no peripheral edema. No clubbing, no cyanosis. Peripheral pulses are intact. Results - Laboratory Findings CBC and BMP: 01/01/24 03:45 01/01/24 03:45 Abnormal lab findings: Abnormal Labs 01/01/24 01/01/24 01/01/24 03:45 03:45 03:45 RBC 3.63 L Lymphocytes # 0.7 L Chloride 96 L Carbon Dioxide 41 H* Creatinine 0.41 L Glucose 111 H Plasma Lactic Acid Scooby 0.6 L - Diagnostic Findings Chest x-ray: image reviewed Assessment and Plan Plan: Acute COPD exacebation with secondary shortness of breath. Acute on chronic hypoxic respiratory failure currently on 4 L of oxygen by nasal cannula Advanced COPD with chronic hypoxic and hypercapnic respiratory failure, baseline FEV1 of 0.6 L which is only 20% of predicted based on the pulmonary function test that was done on 12/04/2022. Overall exercise capacity has been extreme limited as the patient also has had a 6-minute walk that showed significant limitation to exercise capacity. Chronic metabolic alkalosis, a compensatory metabolic alkalosis due to chronic hypercapnic respiratory failure Previous history of a gastrointestinal bleed, EGD from 10/10/2022 revealed a 5 mm linear duodenal bulbar ulcer with no active bleeding, mild antral gastritis. Ongoing tobacco use, smoke free for 2 weeks History of osteoarthritis. History of migraine Plan Emphasized the importance of smoking cessation Titrate oxygen flow to maintain saturation above 90% to maintain saturation above 90% Alexi chatterjee [id number] IV Solu-Medrol Empiric antibiotic coverage with Zithromax Watch for any signs of CO2 narcosis utilize BiPAP as needed Xanax for shortness of breath and anxiety Nicotine patch IV fluids with normal citrate at 50 cc an hour Lovenox for DVT prophylaxis 40 mg SQ daily Will continue to follow
[2024-01-01] MEDS: NICOTINE 14MG/24HR PATCH TRANSDERM SCH (14:10)
--- NOTE | 2024-01-01 14:43 | HP ---
HISTORY AND PHYSICAL CHIEF COMPLAINT: Shortness of breath. HISTORY OF PRESENT ILLNESS: This is a 63-year-old woman, who was admitted with COPD, was complaining of increasing shortness of breath. The patient is apparently trying to cut down the smoking and the patient is extremely short of breath and saturation was in the 70s. The patient came to [facility] and admitted for further evaluation and treatment. Chest x-ray did not show any acute abnormality. There is no history of any fever, rigors, or chills. PAST MEDICAL HISTORY: Asthma, COPD. Rest of the history and rest of the chart is also reviewed. HOME MEDICATIONS: Reviewed include vitamin E, dose and rest of medications reviewed. ALLERGIES: Codeine. FAMILY HISTORY: History of DVT in the family. SOCIAL HISTORY: Continued smoking, trying to cut down. REVIEW OF SYSTEMS: A 14-point review is negative except as mentioned earlier. PHYSICAL EXAMINATION: VITAL SIGNS: Pulse is 79, blood pressure 116/47, respirations 18. HEENT: Conjunctivae normal. CARDIOVASCULAR: S1, S2 muffled. RESPIRATIONS: Breathing efforts are markedly increased. Bilateral scattered rhonchi and expiratory wheezing. ABDOMEN: Soft, nontender. LEGS: No edema. NERVOUS SYSTEM: Nonfocal. SKIN: No ulcer, rash, bleeding. JOINTS: No active deforming arthropathy. LABORATORY DATA: Reviewed. Chest x-ray reviewed. COVID-19 is negative. ASSESSMENT: 1. Chronic obstructive pulmonary disease acute exacerbation with acute tracheobronchitis. 2. Asthma, acute exacerbation. 3. Degenerative joint disease. 4. History of migraine. 5. History of nicotine dependence. 6. Depression. RECOMMENDATIONS AND DISCUSSION: This is a 63-year-old woman, who presented with multiple complex medical issues, we will monitor the patient closely. Recommend to continue with IV steroids, bronchodilators. I would recommend empiric antibiotics. Closely follow with Dr. Driscoll. DVT prophylaxis. Resume the home medications once they are confirmed. Further recommendations to follow. See orders for further details. MMODL / IJN: [id number] /
[2024-01-01 17:20] LABS: Glucose,Whole Blood 228 mg/dL (70-110)
[2024-01-01] MEDS: INSULIN ASPART (NovoLOG) 100 UNIT/ML VIAL SQ SCH (17:22)
[2024-01-01] MEDS: SYMBICORT 160-4.5 MCG INHALER INHALATION SCH (19:55)
[2024-01-01 21:29] LABS: Glucose,Whole Blood 191 mg/dL (70-110)
[2024-01-02 02:00] LABS: Glucose,Whole Blood 128 mg/dL (70-110)
[2024-01-02 06:15] LABS: Glucose,Whole Blood 144 mg/dL (70-110)
[2024-01-02] MEDS: CYANOCOBALAMIN 500 MCG TAB PO SCH (09:32)
[2024-01-02] MEDS: VITAMIN E (DL,TOCOPHERYL ACET) 400 UNIT (180 MG) CAP PO SCH (09:32)
[2024-01-02] MEDS: CHOLECALCIFEROL 25 MCG (1000 IU) TABLET PO SCH (09:32)
[2024-01-02] MEDS: MAGNESIUM OXIDE 400 MG TAB PO SCH (09:34)
[2024-01-02 11:44] LABS: Basophils # (A) 0.01 X 10*3/uL (0.00-0.10); Basophils % (A) 0.1 %; Eosinophils # (A) 0 X 10*3/uL (0.04-0.35); Eosinophils % (A) 0 %; HCT 32.4 % (37.2-46.3); HGB 10.2 g/dL (12.0-15.0); Lymphocytes # (A) 0.47 X 10*3/uL (0.90-5.00); Lymphocytes % (A) 5.3 %; MCH 31.7 pg (27.0-32.0); MCHC 31.5 g/dL (32.0-37.0); MCV 100.6 FL (80.0-97.0); Mean Platelet Volume 9.9 FL (9.5-12.2); Monocytes # (A) 0.44 X 10*3/uL (0.20-1.00); NRBC Per 100 WBC 0 X 10*3/uL (0.00-0.01); Neutrophils # (A) 7.92 X 10*3/uL (1.80-7.70); Neutrophils % (A) 89.3 %; Platelet Count 180 X 10*3/uL (140-440); RBC 3.22 X 10*6/uL (4.10-5.20); RDW 12.4 % (11.5-14.5); WBC 8.87 X 10*3/uL (4.50-10.00)
[2024-01-02] MEDS: LORATADINE 10 MG TAB PO SCH (11:48)
--- NOTE | 2024-01-02 12:04 | PN ---
PROGRESS NOTE DATE OF SERVICE: 01/02/2024 SUBJECTIVE: This is 63-year-old woman who was admitted with COPD exacerbation/shortness of breath. Dr. Driscoll is following the patient. No chest pain, no palpitations, no fever. OBJECTIVE: VITAL SIGNS: Pulse is 81, blood pressure 130/60, respirations 18. CHEST: Few scattered rhonchi and crackles. ABDOMEN: Soft. NERVOUS SYSTEM: No focal deficits. LABORATORY DATA: Not available. ASSESSMENT: 1. COPD acute exacerbation, acute purulent tracheobronchitis. 2. Asthma acute exacerbation. 3. DJD. 4. History of migraine. 5. History of nicotine dependence. 6. Depression. RECOMMENDATIONS: Recommended to continue current medications, continue symptomatic treatment. Repeat labs. Otherwise, continue with steroids, bronchodilators. Closely follow with Dr. Driscoll. Further recommendations to follow. MMODL / IJN: [id number] /
[2024-01-02 12:06] LABS: Blood Urea Nitrogen 13.2 mg/dL (9.0-27.0); Calcium 9.3 mg/dL (8.7-10.3); Carbon Dioxide 40.2 mmol/L (21.6-31.8); Chloride 100 mmol/L (96-109); Glucose 138 mg/dL (70-110); Potassium 4.2 mmol/L (3.5-5.5); Sodium 145 mmol/L (135-145)
[2024-01-02 12:29] LABS: Glucose,Whole Blood 170 mg/dL (70-110)
--- NOTE | 2024-01-02 16:53 | P.PN ---
Subjective Progress Note Date: 01/02/24 63-year-old female patient with a known history of COPD who states that she quit smoking around 2 weeks ago. She is oxygen dependent and patient uses oxygen at 3 L/min nasal cannula. No other maintenance respiratory medication. The patient used to use Symbicort in the past and she was unable to get the medication due to loss of insurance. She presented to the emergency as the patient was unable to perform activities of day-to-day life and she was getting progressively more short of breath. Denied having any chest pain. No pleurisy or hemoptysis. No cough or sputum production. No reported fever chills or night sweats. No altered mentation. In the emergency department, the patientWas placed on oxygen and currently she is on 4 L of O2 nasal cannula. The chest x-ray was done that showed no acute abnormalities and the patient had no consolidation or airspace disease. The patient was hemodynamically stable. The WBC count was at 7.7 with a hemoglobin 11.5. The viral panel was negative. Sodium is at 142 with a potassium of 4 and a serum bicarb is 41 with a BUN of 15 and a creatinine of 0.4. The patient is currently on bronchodilators. The patient was started also on IV Solu-Medrol, Symbicort and empiric antibiotic coverage with Zithromax. No edema lower extremities. No history of any cardiac disease. On today's evaluation of 01/02/2024, I am seeing the patient for a follow-up. The patient is doing well. The patient is less short of breath compared to yesterday. The patient is is being treated for an acute stroke exacerbation. The patient has been COPD. The patient remains on bronchodilators. The patient is on Symbicort as maintenance and IV Solu-Medrol. Labs from today shows a hemoglobin of 10.2, white cell count of 8.8, platelet count of 180, bicarb is at 40 with a BUN of 15 and a creatinine of 0.4. Glucose at 173. Objective - Vital Signs Vital signs: Vital Signs Temp 98.0 F 01/02/24 07:00 Pulse 92 01/02/24 16:15 Resp 18 01/02/24 14:00 BP 113/68 01/02/24 07:00 Pulse Ox 93 L 01/02/24 07:00 FiO2 Intake & Output 01/01/24 01/02/24 01/02/24 18:59 06:59 18:59 Weight 65.771 kg Other: Voiding Method Toilet Toilet # Voids 1 3 - Exam GENERAL EXAM: Awake, alert 62-year-old female, on 4 L nasal cannula, comfortable in no apparent distress. HEAD: Normocephalic. EYES: Normal reaction of pupils, equal size. NOSE: Clear with pink turbinates. THROAT: No erythema or exudates. NECK: No masses, no JVD. CHEST: No chest wall deformity. LUNGS: Equal air entry with faint coarse crackles in the posterior bases. CVS: S1 and S2 normal with no audible murmur, regular rhythm. ABDOMEN: No hepatosplenomegaly, normal bowel sounds, no guarding or rigidity. SPINE: No scoliosis or deformity SKIN: No rashes CENTRAL NERVOUS SYSTEM: No focal deficits, tone is normal in all 4 extremities. EXTREMITIES: There is no peripheral edema. No clubbing, no cyanosis. Peripheral pulses are intact. - Labs CBC & Chem 7: 01/02/24 07:34 01/02/24 07:34 Labs: Abnormal Lab Results - Last 24 Hours (Table) 01/01/24 01/01/24 01/02/24 Range/Units 17:18 21:27 01:59 RBC (4.10-5.20) X 10*6/uL Hgb (12.0-15.0) g/dL Hct (37.2-46.3) % MCV (80.0-97.0) FL MCHC (32.0-37.0) g/dL Neutrophils # (1.80-7.70) X 10*3/uL Lymphocytes # (0.90-5.00) X 10*3/uL Eosinophils # (0.04-0.35) X 10*3/uL Carbon Dioxide (21.6-31.8) mmol/L Creatinine (0.6-1.5) mg/dL BUN/Creatinine Ratio (12.00-20.00) Ratio Glucose (70-110) mg/dL POC Glucose (mg/dL) 228 H 191 H 128 H (70-110) mg/dL 01/02/24 01/02/24 01/02/24 Range/Units 06:14 07:34 07:34 RBC 3.22 L (4.10-5.20) X 10*6/uL Hgb 10.2 L (12.0-15.0) g/dL Hct 32.4 L (37.2-46.3) % MCV 100.6 H (80.0-97.0) FL MCHC 31.5 L (32.0-37.0) g/dL Neutrophils # 7.92 H (1.80-7.70) X 10*3/uL Lymphocytes # 0.47 L (0.90-5.00) X 10*3/uL Eosinophils # 0 L (0.04-0.35) X 10*3/uL Carbon Dioxide 40.2 A* (21.6-31.8) mmol/L Creatinine 0.4 L (0.6-1.5) mg/dL BUN/Creatinine Ratio 33.00 H (12.00-20.00) Ratio Glucose 138 H (70-110) mg/dL POC Glucose (mg/dL) 144 H (70-110) mg/dL 01/02/24 Range/Units 12:27 RBC (4.10-5.20) X 10*6/uL Hgb (12.0-15.0) g/dL Hct (37.2-46.3) % MCV (80.0-97.0) FL MCHC (32.0-37.0) g/dL Neutrophils # (1.80-7.70) X 10*3/uL Lymphocytes # (0.90-5.00) X 10*3/uL Eosinophils # (0.04-0.35) X 10*3/uL Carbon Dioxide (21.6-31.8) mmol/L Creatinine (0.6-1.5) mg/dL BUN/Creatinine Ratio (12.00-20.00) Ratio Glucose (70-110) mg/dL POC Glucose (mg/dL) 170 H (70-110) mg/dL Assessment and Plan Plan: Acute COPD exacebation with secondary shortness of breath. Acute on chronic hypoxic respiratory failure currently on 4 L of oxygen by nasal cannula Advanced COPD with chronic hypoxic and hypercapnic respiratory failure, baseline FEV1 of 0.6 L which is only 20% of predicted based on the pulmonary function test that was done on 12/04/2022. Overall exercise capacity has been extreme limited as the patient also has had a 6-minute walk that showed significant limitation to exercise capacity. Chronic metabolic alkalosis, a compensatory metabolic alkalosis due to chronic hypercapnic respiratory failure Previous history of a gastrointestinal bleed, EGD from 10/10/2022 revealed a 5 mm linear duodenal bulbar ulcer with no active bleeding, mild antral gastritis. Ongoing tobacco use, smoke free for 2 weeks History of osteoarthritis. History of migraine Plan Clinically slightly improved compared to yesterday and the patient will be kept on the same treatment for now Titrate oxygen flow and the patient remains on 4 L Emphasized the importance of smoking cessation Titrate oxygen flow to maintain saturation above 90% to maintain saturation above 90% Alexi chatterjee [id number] IV Solu-Medrol Empiric antibiotic coverage with Zithromax Watch for any signs of CO2 narcosis utilize BiPAP as needed Xanax for shortness of breath and anxiety Nicotine patch IV fluids with normal citrate at 50 cc an hour Lovenox for DVT prophylaxis 40 mg SQ daily Will continue to follow
[2024-01-02 17:30] LABS: Glucose,Whole Blood 146 mg/dL (70-110)
[2024-01-02 19:34] LABS: Glucose,Whole Blood 215 mg/dL (70-110)
[2024-01-02 21:24] LABS: Glucose,Whole Blood 160 mg/dL (70-110)
[2024-01-03 06:30] LABS: Glucose,Whole Blood 137 mg/dL (70-110)
[2024-01-03] MEDS ORDERED: FLUTICASONE 50MCG/SPRAY NASAL 16GM EA NOSTRIL PRN (10:37)
[2024-01-03 10:57] LABS: HCT 33.8 % (37.2-46.3); HGB 10.5 g/dL (12.0-15.0); MCH 31.4 pg (27.0-32.0); MCHC 31.1 g/dL (32.0-37.0); MCV 101.2 FL (80.0-97.0); Mean Platelet Volume 10.6 FL (9.5-12.2); NRBC Per 100 WBC 0 X 10*3/uL (0.00-0.01); Platelet Count 175 X 10*3/uL (140-440); RBC 3.34 X 10*6/uL (4.10-5.20); RDW 12.7 % (11.5-14.5); WBC 12.18 X 10*3/uL (4.50-10.00)
[2024-01-03 10:58] LABS: Basophils # (A) 0.01 X 10*3/uL (0.00-0.10); Basophils % (A) 0.1 %; Eosinophils # (A) 0 X 10*3/uL (0.04-0.35); Eosinophils % (A) 0 %; Lymphocytes # (A) 0.36 X 10*3/uL (0.90-5.00); Monocytes # (A) 0.85 X 10*3/uL (0.20-1.00); Neutrophils % (A) 89.4 %
[2024-01-03 11:40] LABS: Blood Urea Nitrogen 18.2 mg/dL (9.0-27.0); Calcium 9.3 mg/dL (8.7-10.3); Carbon Dioxide 38.8 mmol/L (21.6-31.8); Chloride 100 mmol/L (96-109); Glucose 120 mg/dL (70-110); Potassium 4.3 mmol/L (3.5-5.5); Sodium 145 mmol/L (135-145)
[2024-01-03 12:30] LABS: Glucose,Whole Blood 190 mg/dL (70-110)
[2024-01-03] MEDS: PANTOPRAZOLE 40 MG TABLET PO SCH (14:06)
[2024-01-03 15:07] VITALS: BP 111/65; PULSE 97; RESP 18; TEMP 98.4
--- NOTE | 2024-01-03 15:18 | P.PN ---
Subjective Progress Note Date: 01/03/24 63-year-old female patient with a known history of COPD who states that she quit smoking around 2 weeks ago. She is oxygen dependent and patient uses oxygen at 3 L/min nasal cannula. No other maintenance respiratory medication. The patient used to use Symbicort in the past and she was unable to get the medication due to loss of insurance. She presented to the emergency as the patient was unable to perform activities of day-to-day life and she was getting progressively more short of breath. Denied having any chest pain. No pleurisy or hemoptysis. No cough or sputum production. No reported fever chills or night sweats. No altered mentation. In the emergency department, the patientWas placed on oxygen and currently she is on 4 L of O2 nasal cannula. The chest x-ray was done that showed no acute abnormalities and the patient had no consolidation or airspace disease. The patient was hemodynamically stable. The WBC count was at 7.7 with a hemoglobin 11.5. The viral panel was negative. Sodium is at 142 with a potassium of 4 and a serum bicarb is 41 with a BUN of 15 and a creatinine of 0.4. The patient is currently on bronchodilators. The patient was started also on IV Solu-Medrol, Symbicort and empiric antibiotic coverage with Zithromax. No edema lower extremities. No history of any cardiac disease. On today's evaluation of 01/02/2024, I am seeing the patient for a follow-up. The patient is doing well. The patient is less short of breath compared to yesterday. The patient is is being treated for an acute stroke exacerbation. The patient has been COPD. The patient remains on bronchodilators. The patient is on Symbicort as maintenance and IV Solu-Medrol. Labs from today shows a hemoglobin of 10.2, white cell count of 8.8, platelet count of 180, bicarb is at 40 with a BUN of 15 and a creatinine of 0.4. Glucose at 173. On 01/03/2024, I am seeing the patient for a follow-up regarding his COPD exacerbation. No new complaints otherwise for now. She states that she is gradually improving. I do agree to that. The patient is much less bronchospastic and wheezy and I think she is very close to baseline. She had few requests. She was on Flonase and this will be added to her regimen. She remains on IV Solu-Medrol. She remains on Symbicort and this will be ordered for her on an outpatient basis. The patient will also need nebulizer medication to be used at the time of discharge and she already has home O2. Labs from [facility] shows a WBC count of 12 hemoglobin 10.7 platelet count 175, BUN 73 with a creatinine of 0.5 and his sodium level is at 145. Objective - Vital Signs Vital signs: Vital Signs Temp 97.9 F 01/03/24 08:00 Pulse 90 01/03/24 09:17 Resp 16 01/03/24 08:00 BP 112/58 01/03/24 08:00 Pulse Ox 97 01/03/24 08:00 FiO2 Intake & Output 01/02/24 01/03/24 01/03/24 18:59 06:59 18:59 Other: Voiding Method Toilet Toilet # Voids 3 2 - Exam GENERAL EXAM: Awake, alert 62-year-old female, on 4 L nasal cannula, comfortable in no apparent distress. HEAD: Normocephalic. EYES: Normal reaction of pupils, equal size. NOSE: Clear with pink turbinates. THROAT: No erythema or exudates. NECK: No masses, no JVD. CHEST: No chest wall deformity. LUNGS: Equal air entry with faint coarse crackles in the posterior bases. CVS: S1 and S2 normal with no audible murmur, regular rhythm. ABDOMEN: No hepatosplenomegaly, normal bowel sounds, no guarding or rigidity. SPINE: No scoliosis or deformity SKIN: No rashes CENTRAL NERVOUS SYSTEM: No focal deficits, tone is normal in all 4 extremities. EXTREMITIES: There is no peripheral edema. No clubbing, no cyanosis. Periphera l pulses are intact. - Labs CBC & Chem 7: 01/03/24 07:18 01/03/24 07:18 Labs: Abnormal Lab Results - Last 24 Hours (Table) 01/02/24 01/02/24 01/02/24 Range/Units 07:34 07:34 12:27 RBC 3.22 L (4.10-5.20) X 10*6/uL Hgb 10.2 L (12.0-15.0) g/dL Hct 32.4 L (37.2-46.3) % MCV 100.6 H (80.0-97.0) FL MCHC 31.5 L (32.0-37.0) g/dL Neutrophils # 7.92 H (1.80-7.70) X 10*3/uL Lymphocytes # 0.47 L (0.90-5.00) X 10*3/uL Eosinophils # 0 L (0.04-0.35) X 10*3/uL Carbon Dioxide 40.2 A* (21.6-31.8) mmol/L Creatinine 0.4 L (0.6-1.5) mg/dL BUN/Creatinine Ratio 33.00 H (12.00-20.00) Ratio Glucose 138 H (70-110) mg/dL POC Glucose (mg/dL) 170 H (70-110) mg/dL 01/02/24 01/02/24 01/02/24 Range/Units 17:23 19:33 21:21 RBC (4.10-5.20) X 10*6/uL Hgb (12.0-15.0) g/dL Hct (37.2-46.3) % MCV (80.0-97.0) FL MCHC (32.0-37.0) g/dL Neutrophils # (1.80-7.70) X 10*3/uL Lymphocytes # (0.90-5.00) X 10*3/uL Eosinophils # (0.04-0.35) X 10*3/uL Carbon Dioxide (21.6-31.8) mmol/L Creatinine (0.6-1.5) mg/dL BUN/Creatinine Ratio (12.00-20.00) Ratio Glucose (70-110) mg/dL POC Glucose (mg/dL) 146 H 215 H 160 H (70-110) mg/dL 01/03/24 Range/Units 06:29 RBC (4.10-5.20) X 10*6/uL Hgb (12.0-15.0) g/dL Hct (37.2-46.3) % MCV (80.0-97.0) FL MCHC (32.0-37.0) g/dL Neutrophils # (1.80-7.70) X 10*3/uL Lymphocytes # (0.90-5.00) X 10*3/uL Eosinophils # (0.04-0.35) X 10*3/uL Carbon Dioxide (21.6-31.8) mmol/L Creatinine (0.6-1.5) mg/dL BUN/Creatinine Ratio (12.00-20.00) Ratio Glucose (70-110) mg/dL POC Glucose (mg/dL) 137 H (70-110) mg/dL Assessment and Plan Plan: Acute COPD exacebation with secondary shortness of breath. Acute on chronic hypoxic respiratory failure currently on 4 L of oxygen by nasal cannula Advanced COPD with chronic hypoxic and hypercapnic respiratory failure, baseline FEV1 of 0.6 L which is only 20% of predicted based on the pulmonary function test that was done on 12/04/2022. Overall exercise capacity has been extreme limited as the patient also has had a 6-minute walk that showed significant limitation to exercise capacity. Chronic metabolic alkalosis, a compensatory metabolic alkalosis due to chronic hypercapnic respiratory failure Previous history of a gastrointestinal bleed, EGD from 10/10/2022 revealed a 5 mm linear duodenal bulbar ulcer with no active bleeding, mild antral gastritis. Ongoing tobacco use, smoke free for 2 weeks History of osteoarthritis. History of migraine Plan Clinically much improved and the patient is close to her baseline and should be able to get discharged home. Home oxygen Home nebulizer Symbicort as maintenance Prednisone burst taper Flonase Nicotine patch Outpatient follow-up regarding history of exacerbation and further COPD management as the patient has severe COPD with an FEV1 of 20% of predicted. Possible discharge either today or over the next 24 hours. Will continue to follow.
--- NOTE | 2024-01-04 07:19 | P.DS ---
Providers Date of admission: 01/01/24 05:56 Expected date of discharge: 01/03/24 Attending physician: Mine Wilson Consults: 01/01/24 05:56 Consult Physician Urgent Consulting Provider: Viraj Driscoll Consult Reason/Comments: copd exacerbation Do you want consulting provider notified?: Yes Primary care physician: Angel Michael [facility] Course: Final diagnosis COPD exacerbation, acute purulent tracheobronchitis Acute on chronic hypoxic respiratory failure secondary to COPD Asthma, acute exacerbation History of degenerative disc disease History of migraines History of nicotine dependence, recently quit 1 to 2 weeks ago History of depression GI prophylaxis DVT prophylaxis Full code Discharge disposition Patient is being discharged in a stable condition with guarded prognosis to home. Patient will follow-up with Dr. Rodriguez in the outpatient setting upon discharge. Patient is to continue with breathing inhalational treatments along with prednisone taper and outpatient follow-up with pulmonary as scheduled. Total time taken is greater than 35 minutes. Hospital course This is a 63-year-old female who was recently admitted with increased shortness of breath with acute COPD exacerbation with concerns of acute tracheobronchitis. Patient did receive antibiotic therapy and was maintained on IV steroids along with breathing inhalational treatments showing some improvement. Patient was reevaluated with home O2 and will require continued oxygen on discharge to manage COPD. Patient has been cleared by pulmonary for discharge with close outpatient follow-up. Please refer to consultation note for further HPI. Currently no reports of chest pain, shortness of breath, or palpitations. Patient is afebrile. No reports of nausea or vomiting and patient is tolerating diet. Patient will be discharged home today. Guarded prognosis Physical exam: Gen: This is a 63-year-old female who is awake, alert and oriented x 3, well- developed, well-nourished, elderly appearing HEENT: Head is atraumatic, normocephalic. Pupils equal, round. Sclerae is anicteric. NECK: Supple. No JVD. No lymphadenopathy. No thyromegaly. LUNGS: Diminished breath sounds bilaterally with some scattered rhonchi. Faint expiratory wheezing noted. No intercostal retractions. HEART: Regular rate and rhythm. No murmur. ABDOMEN: Soft. Bowel sounds are present. No masses. No tenderness. EXTREMITIES: No pedal edema. No calf tenderness. NEUROLOGICAL: Patient is awake, alert and oriented x3. Cranial nerves 2 through 12 are grossly intact. Please refer to medication reconciliation sheet for a list of medications. The impression and plan of care has been dictated by Kirti Castaeñda, Nurse Practitioner as directed. Dr. Steve MD I have performed a history and examination and MDM of this patient, discussed the same with the dictator, and agree with the dictator's assessment and plan as written ,documented as a scribe. Based on total visit time, I have performed more than 50% of the visit. Patient Condition at Discharge: Stable Plan - Discharge Summary Discharge Rx Participant: No New Discharge Prescriptions: New Budesonide-Formot 160-4.5 Mcg [Symbicort 160-4.5 Mcg Inhaler] 2 puff INHALATION RT-BID 30 Days #1 each Ipratropium-Albuterol Nebulize [Duoneb 0.5 mg-3 mg/3 ml Soln] 3 ml INHALATION RT-QID #100 each predniSONE 10 mg PO DIRECTED #30 tab Acetaminophen Tab [Tylenol] 1,000 mg PO Q6HR PRN tab PRN Reason: Fever And/ Or Pain Continue Loratadine 10 mg PO DAILY Vitamin E (Dl,Tocopheryl Acet) [Vitamin E (400 Iu = 180 mg)] 400 unit PO DAILY Magnesium Oxide [Mag-Ox] 400 mg PO DAILY #15 tab Cyanocobalamin (Vitamin B-12) [Vitamin B-12] 1,000 mcg PO DAILY Cholecalciferol [Vitamin D3 (25 Mcg = 1000 Iu)] 50 mcg PO DAILY Discharge Medication List Loratadine 10 mg PO DAILY 06/08/19 [History] Magnesium Oxide [Mag-Ox] 400 mg PO DAILY #15 tab 10/13/22 [Rx] Cholecalciferol [Vitamin D3 (25 Mcg = 1000 Iu)] 50 mcg PO DAILY 01/01/24 [History] Cyanocobalamin (Vitamin B-12) [Vitamin B-12] 1,000 mcg PO DAILY 01/01/24 [History] Vitamin E (Dl,Tocopheryl Acet) [Vitamin E (400 Iu = 180 mg)] 400 unit PO DAILY 01/01/24 [History] Acetaminophen Tab [Tylenol] 1,000 mg PO Q6HR PRN tab 01/03/24 [Rx] Budesonide-Formot 160-4.5 Mcg [Symbicort 160-4.5 Mcg Inhaler] 2 puff INHALATION RT-BID 30 Days #1 each 01/03/24 [Rx] Ipratropium-Albuterol Nebulize [Duoneb 0.5 mg-3 mg/3 ml Soln] 3 ml INHALATION RT-QID #100 each 01/03/24 [Rx] predniSONE 10 mg PO DIRECTED #30 tab 01/03/24 [Rx] Follow up Appointment(s)/Referral(s): [facility] - 1 Week Angel Rodriguez DO [Primary Care Provider] - 1 Week Viraj Driscoll MD [STAFF PHYSICIAN] - 01/10/24 9:15 am Patient Instructions/Handouts: COPD (Chronic Obstructive Pulmonary Disease) (GEN) Activity/Diet/Wound Care/Special Instructions: Activity limited until follow-up Follow-up with primary care provider Follow-up pulmonary outpatient Continue with inhalers and prednisone taper Continue to avoid tobacco use and exposure Discharge Disposition: HOME SELF-CARE
== END 2024-01-03 15:58 | disposition home or self-care (01) | DRG 190 ==
LOC: EC 02:27 → 6NMEDSUR 05:56 → OBSVTOIN 05:56 → 6NMEDSUR 06:37
PROVIDERS: ADMIT Hospitalist; ATTEND Hospitalist
DX: J44.1 Chronic obstructive pulmonary disease with (acute) exacerbation (principal); J96.21 Acute and chronic respiratory failure with hypoxia; J96.12 Chronic respiratory failure with hypercapnia; J45.901 Unspecified asthma with (acute) exacerbation; F32.A Depression, unspecified; J44.0 Chronic obstructive pulmonary disease with (acute) lower respiratory infection; M19.90 Unspecified osteoarthritis, unspecified site; Z89.422 Acquired absence of other left toe(s); Z99.81 Dependence on supplemental oxygen; Z87.891 Personal history of nicotine dependence; Z79.51 Long term (current) use of inhaled steroids; Z88.5 Allergy status to narcotic agent; Z11.52 Encounter for screening for COVID-19; Z87.19 Personal history of other diseases of the digestive system; Z79.899 Other long term (current) drug therapy; Z86.69 Personal history of other diseases of the nervous system and sense organs
CPT/HCPCS: 36415; 71046; 80048; 80053; 83036; 83605; 83880; 84484; 85025; 87636; 94640; 94760; 96372; 96375; 96376; 99285

== ENCOUNTER 2024-04-24 05:55 | Inpatient (IN) | payer MEDICARE ==
--- NOTE | 2024-04-24 06:40 | ED ---
SOB HPI - General Chief Complaint: Shortness of Breath Stated Complaint: CHERI Time Seen by Provider: 04/24/24 06:37 Source: patient, RN notes reviewed Mode of arrival: wheelchair Limitations: no limitations - History of Present Illness Initial Comments: 64-year-old female with a past medical history significant of COPD presented to the ER with a chief complaint of shortness of breath. Patient reports for the past 3 to 4 days she has been having an increase in dyspnea. She reports her exertional dyspnea has been making it very difficult to ambulate at home. She does normally wear 4 L of oxygen at home. Patient has been using an albuterol inhaler as she ran out of her other medications. Patient reports she has not been able to follow-up outpatient as she has been unable to walk to the car due to her dyspnea. She denies any fevers, cough, congestion, chest pain, abdominal pain or peripheral edema. - Related Data Home Medications Medication Instructions Recorded Confirmed Loratadine 10 mg PO DAILY 06/08/19 04/24/24 Cholecalciferol [Vitamin D3 (25 50 mcg PO DAILY 01/01/24 04/24/24 Mcg = 1000 Iu)] Cyanocobalamin (Vitamin B-12) 1,000 mcg PO DAILY 01/01/24 04/24/24 [Vitamin B-12] Vitamin E (Dl,Tocopheryl Acet) 400 unit PO DAILY 01/01/24 04/24/24 [Vitamin E (400 Iu = 180 mg)] Albuterol Nebulized [Ventolin 2.5 mg INHALATION RT-QID PRN 04/24/24 04/24/24 Nebulized] Aspirin/Acetaminophen/Caffeine 1 tab PO DAILY PRN 04/24/24 04/24/24 [Excedrin Migraine Caplet] Previous Rx's Medication Instructions Recorded Magnesium Oxide [Mag-Ox] 400 mg PO DAILY #15 tab 10/13/22 Acetaminophen Tab [Tylenol] 1,000 mg PO Q6HR PRN tab 01/03/24 Budesonide-Formot 160-4.5 Mcg 2 puff INHALATION RT-BID 30 Days 01/03/24 [Symbicort 160-4.5 Mcg Inhaler] #1 each Allergies Allergy/AdvReac Type Severity Reaction Status Date / Time adhesive Allergy Rash/Hives Verified 04/24/24 09:31 codeine AdvReac SEVERE Verified 04/24/24 09:31 HEADACHE , VOMITING morphine AdvReac Vomiting, Verified 04/24/24 09:31 SEVERE HEADACHE Review of Systems ROS Statement: Those systems with pertinent positive or pertinent negative responses have been documented in the HPI. ROS Other: All systems not noted in ROS Statement are negative. Past Medical History Past Medical History: Asthma, COPD, Osteoarthritis (OA) Additional Past Medical History / Comment(s): MIGRAINE HEADACHE, home o2, cataracts History of Any Multi-Drug Resistant Organisms: None Reported Past Surgical History: Section, Hysterectomy Additional Past Surgical History / Comment(s): right shoulder X2 , bilateral foot, toe amputation on the left foot , Past Anesthesia/Blood Transfusion Reactions: No Reported Reaction Additional Past Anesthesia/Blood Transfusion Reaction / Comment(s): WITH CODEINE OR MORPHINE- VOMITING AND HEADACHE Past Psychological History: Depression Smoking Status: Current every day smoker Past Alcohol Use History: Rare Past Drug Use History: None Reported - Past Family History Mother Family Medical History: Deep Vein Thrombosis (DVT) General Exam General appearance: alert, in no apparent distress Respiratory exam: Present: decreased breath sounds, other (Conversational dyspnea) Cardiovascular Exam: Present: regular rate, normal rhythm, normal heart sounds. Absent: systolic murmur, diastolic murmur, rubs, gallop, clicks Extremities exam: Present: normal inspection, full ROM, normal capillary refill. Absent: tenderness, pedal edema, joint swelling, calf tenderness Neurological exam: Present: alert, oriented X3, CN II-XII intact Skin exam: Present: warm, dry, intact, normal color. Absent: rash Course Vital Signs 04/24/24 04/24/24 04/24/24 06:13 07:39 07:49 Temperature 98.3 F Pulse Rate 97 87 86 Respiratory 20 Rate Blood Pressure 136/72 O2 Sat by Pulse 97 Oximetry 04/24/24 10:50 Temperature Pulse Rate 87 Respiratory 15 Rate Blood Pressure 137/63 O2 Sat by Pulse Oximetry - Reevaluation(s) Reevaluation #1: 04/24/24 10:[address] Valero, [facility], who accepts medical admission. Medical Decision Making - Medical Decision Making Was pt. sent in by a medical professional or institution (, PA, AUTOMOTIVE FUEL INJECTION SERVICER, urgent care, hospital, or senior living...) When possible be specific @ -No Did you speak to anyone other than the patient for history (EMS, parent, family, police, friend...)? What history was obtained from this source @ -No Did you review nursing and triage notes (agree or disagree)? Why? @ -I reviewed and agree with nursing and triage notes Were old charts reviewed (outside hosp., previous admission, EMS record, old EKG, old radiological studies, urgent care reports/EKG's, senior living records)? Report findings @ -Yes, I reviewed ER visit and chest xray from 01-01-2024. Patient seen and admitted for COPD exacerbation. Differential Diagnosis (chest pain, altered mental status, abdominal pain women, abdominal pain men, vaginal bleeding, weakness, fever, dyspnea, syncope, headache, dizziness, GI bleed, back pain, seizure, CVA, palpatations, mental health, musculoskeletal)? @ -Differential Dyspnea:Coronary syndrome, arrhythmia, tamponade, asthma, COPD, pulmonary embolism, pneumonia, pneumothorax, pulmonary effusion, anaphylaxis, diabetic ketoacidosis, flailed chest, pulmonary contusion, diaphragmatic rupture, anemia, neuromuscular, this is not meant to be an all-inclusive list. EKG interpreted by me (3pts min.). @ -As above X-rays interpreted by me (1pt min.). @ -Chest x-ray interpreted by me negative for acute cardiopulmonary process. There is chronic COPD changes present. CT interpreted by me (1pt min.). @ -None done U/S interpreted by me (1pt. min.). @ -None done What testing was considered but not performed or refused? (CT, X-rays, U/S, labs)? Why? @ -None What meds were considered but not given or refused? Why? @ -None Did you discuss the management of the patient with other professionals (professionals i.e. , PA, AUTOMOTIVE FUEL INJECTION SERVICER, lab, RT, psych nurse, renal social worker, pusher operator, teacher, border patrol officer, piano case and bench assembler)? Give summary @ -Yes, case discussed with Dr. Valero, [facility], who accepts medical admission. Was smoking cessation discussed for >3mins.? @ -No Was critical care preformed (if so, how long)? @ -No Were there social determinants of health that impacted care today? How? (Homelessness, low income, unemployed, alcoholism, drug addiction, transportation, low edu. Level, literacy, decrease access to med. care, correction, rehab)? @ -No Was there de-escalation of care discussed even if they declined (Discuss DNR or withdrawal of care, Hospice)? DNR status @ -No What co-morbidities impacted this encounter? (DM, HTN, Smoking, COPD, CAD, Cancer, CVA, ARF, Chemo, Hep., AIDS, mental health diagnosis, sleep apnea, morbid obesity)? @ -COPD Was patient admitted / discharged? Hospital course, mention meds given and route, prescriptions, significant lab abnormalities, going to OR and other pertinent info. @ -Admitted. 64-year-old female presented to the ER with a chief complaint of dyspnea. History and physical exam completed. Vitals significant for a temperature 98.3, heart rate 97, respiratory rate 20, blood pressure 136/72, oxygen saturation 97% on 4 L nasal cannula oxygen. Patient in no signs of respiratory distress but is experiencing conversational dyspnea. Decreased lung sounds in all garcía. Laboratory studies obtained nonspecific. Troponin less than 0.012, BNP 40. Chest x-ray interpreted by me negative for acute cardiop ulmonary process. Patient received DuoNeb nebulizer in the ER. In attempt to ambulate patient to monitor oxygen saturations, her oxygen saturations dropped to the low 80s on 4 L nasal cannula oxygen upon sitting. Admission considered for COPD exacerbation and pulmonology consult. Case discussed with [facility], Dr. Valero, who accepts medical admission. Patient started on azithromycin. Pulmonology on consult. Patient agreeable for admission. Case discussed with ED attending, Dr. Bo. Undiagnosed new problem with uncertain prognosis? @ -No Drug Therapy requiring intensive monitoring for toxicity (Heparin, Nitro, Insulin, Cardizem)? @ -No Were any procedures done? @ -No Diagnosis/symptom? @ -COPD exacerbation Acute, or Chronic, or Acute on Chronic? @ -Acute on chronic Uncomplicated (without systemic symptoms) or Complicated (systemic symptoms)? @ -Complicated Side effects of treatment? @ -No Exacerbation, Progression, or Severe Exacerbation? @ -Exacerbation Poses a threat to life or bodily function? How? (Chest pain, USA, CT, pneumonia, PE, COPD, DKA, ARF, appy, cholecystitis, CVA, Diverticulitis, Homicidal, Suicidal, threat to staff... and all critical care pts) @ -Possibly - Lab Data Result diagrams: 04/24/24 06:32 04/24/24 08:05 Lab Results 04/24/24 04/24/24 04/24/24 Range/Units 06:32 06:32 06:32 WBC 7.4 (3.8-10.6) k/uL RBC 3.57 L (3.80-5.40) m/uL Hgb 11.5 (11.4-16.0) gm/dL Hct 35.7 (34.0-46.0) % MCV 99.9 (80.0-100.0) fL MCH 32.0 (25.0-35.0) pg MCHC 32.1 (31.0-37.0) g/dL RDW 12.4 (11.5-15.5) % Plt Count 251 (150-450) k/uL MPV 7.6 Neutrophils % 69 % Lymphocytes % 16 % Monocytes % 7 % Eosinophils % 6 % Basophils % 1 % Neutrophils # 5.1 (1.3-7.7) k/uL Lymphocytes # 1.1 (1.0-4.8) k/uL Monocytes # 0.5 (0-1.0) k/uL Eosinophils # 0.5 (0-0.7) k/uL Basophils # 0.0 (0-0.2) k/uL PT 10.0 (10.0-12.5) sec INR 0.9 (<1.2) APTT 26.2 (22.0-30.0) sec Sodium (137-145) mmol/L Potassium (3.5-5.1) mmol/L Chloride (98-107) mmol/L Carbon Dioxide (22-30) mmol/L Anion Gap mmol/L BUN (7-17) mg/dL Creatinine (0.52-1.04) mg/dL Est GFR (CKD-EPI)AfAm (>60 ml/min/1.73 sqM) Est GFR (CKD-EPI)NonAf (>60 ml/min/1.73 sqM) Glucose (74-99) mg/dL Plasma Lactic Acid Scooby 0.8 (0.7-2.0) mmol/L Calcium (8.4-10.2) mg/dL Total Bilirubin (0.2-1.3) mg/dL AST (14-36) U/L ALT (4-34) U/L Alkaline Phosphatase (38-126) U/L Troponin I (0.000-0.034) ng/mL NT-Pro-B Natriuret Pep pg/mL Total Protein (6.3-8.2) g/dL Albumin (3.5-5.0) g/dL 04/24/24 04/24/24 Range/Units 08:05 08:05 WBC (3.8-10.6) k/uL RBC (3.80-5.40) m/uL Hgb (11.4-16.0) gm/dL Hct (34.0-46.0) % MCV (80.0-100.0) fL MCH (25.0-35.0) pg MCHC (31.0-37.0) g/dL RDW (11.5-15.5) % Plt Count (150-450) k/uL MPV Neutrophils % % Lymphocytes % % Monocytes % % Eosinophils % % Basophils % % Neutrophils # (1.3-7.7) k/uL Lymphocytes # (1.0-4.8) k/uL Monocytes # (0-1.0) k/uL Eosinophils # (0-0.7) k/uL Basophils # (0-0.2) k/uL PT (10.0-12.5) sec INR (<1.2) APTT (22.0-30.0) sec Sodium 142 (137-145) mmol/L Potassium 4.4 (3.5-5.1) mmol/L Chloride 100 (98-107) mmol/L Carbon Dioxide 38 H (22-30) mmol/L Anion Gap 4 mmol/L BUN 12 (7-17) mg/dL Creatinine 0.35 L (0.52-1.04) mg/dL Est GFR (CKD-EPI)AfAm >90 (>60 ml/min/1.73 sqM) Est GFR (CKD-EPI)NonAf >90 (>60 ml/min/1.73 sqM) Glucose 109 H (74-99) mg/dL Plasma Lactic Acid Scooby (0.7-2.0) mmol/L Calcium 9.1 (8.4-10.2) mg/dL Total Bilirubin 0.4 (0.2-1.3) mg/dL AST 27 (14-36) U/L ALT 18 (4-34) U/L Alkaline Phosphatase 99 (38-126) U/L Troponin I <0.012 (0.000-0.034) ng/mL NT-Pro-B Natriuret Pep 40 pg/mL Total Protein 6.5 (6.3-8.2) g/dL Albumin 4.1 (3.5-5.0) g/dL - EKG Data -: EKG Interpreted by Me EKG Comments: EKG taken at 6: 24 showing a sinus rhythm with no acute ST segment or T wave abnormalities. Normal axis. Ventricular rate 91, NM interval 134, QRS duration 98, QT/QTc 370/419. - Radiology Data Radiology results: report reviewed, image reviewed Disposition Clinical Impression: Acute exacerbation of chronic obstructive pulmonary disease Disposition: ADMITTED IP TO THIS HOSP Condition: Fair Time of Disposition: 10:34
[2024-04-24 06:47] LABS: Basophils % (A) 1 %; Eosinophils # (A) 0.5 k/uL (0-0.7); Eosinophils % (A) 6 %; HCT 35.7 % (34.0-46.0); HGB 11.5 gm/dL (11.4-16.0); Lymphocytes # (A) 1.1 k/uL (1.0-4.8); Lymphocytes % (A) 16 %; MCHC 32.1 g/dL (31.0-37.0); MCV 99.9 fL (80.0-100.0); Mean Platelet Volume 7.6; Monocytes # (A) 0.5 k/uL (0-1.0); Monocytes % (A) 7 %; Neutrophils # (A) 5.1 k/uL (1.3-7.7); Neutrophils % (A) 69 %; Platelet Count 251 k/uL (150-450); RBC 3.57 m/uL (3.80-5.40); RDW 12.4 % (11.5-15.5); WBC 7.4 k/uL (3.8-10.6)
--- NOTE | 2024-04-24 06:47 | XR ---
EXAMINATION TYPE: XR chest 2V DATE OF EXAM: 04/24/2024 COMPARISON: Prior chest x-ray October 11, 2022 HISTORY: Difficulty in breathing. TECHNIQUE: Frontal and lateral views of the chest are obtained. FINDINGS: Underlying emphysematous changes are redemonstrated. There is no suspicious new focal air s pace opacity, pleural effusion, or pneumothorax seen. The cardiac silhouette size remains within nor mal limits. The osseous structures are intact. IMPRESSION: Chronic emphysematous changes without acute pulmonary process.
[2024-04-24 06:58] LABS: INR 0.9 (<1.2); Partial Thromboplastin Time 26.2 sec (22.0-30.0)
[2024-04-24] MEDS: IPRATROPIUM-ALBUTEROL 3 ML NEB INHALATION STA (07:39)
[2024-04-24 08:48] LABS: ALT 18 U/L (4-34); AST 27 U/L (14-36); African American GFR (CKD) >90 (>60 ml/min/1.73 sqM); Albumin 4.1 g/dL (3.5-5.0); Alkaline Phosphatase 99 U/L (38-126); Blood Urea Nitrogen 12 mg/dL (7-17); Calcium 9.1 mg/dL (8.4-10.2); Chloride 100 mmol/L (98-107); Glucose 109 mg/dL (74-99); Non-African American GFR(CKD) >90 (>60 ml/min/1.73 sqM); Potassium 4.4 mmol/L (3.5-5.1); Sodium 142 mmol/L (137-145); Total Bilirubin 0.4 mg/dL (0.2-1.3); Total Protein 6.5 g/dL (6.3-8.2)
[2024-04-24 08:54] LABS: Anion Gap 4 mmol/L
[2024-04-24 08:57] LABS: NT-Pro-B-Type Natriuretic Pept 40 pg/mL
[2024-04-24 08:58] LABS: Carbon Dioxide 38 mmol/L (22-30)
[2024-04-24] MEDS ORDERED: NALOXONE 0.4 MG/ML 1 ML VIAL IV PRN (10:24)
[2024-04-24] MEDS: AZITHROMYCIN 500 MG TAB PO STA (11:07)
[2024-04-24] MEDS: ACETAMINOPHEN TAB 325 MG TAB PO PRN (11:10)
[2024-04-24] MEDS: IBUPROFEN 400 MG TAB PO PRN (11:48)
[2024-04-24] MEDS ORDERED: IPRATROPIUM-ALBUTEROL 3 ML NEB INHALATION PRN (14:11)
--- NOTE | 2024-04-24 14:11 | P.CNPUL ---
History of Present Illness Consult date: 04/24/24 Requesting physician: Mine Wilson Reason for consult: dyspnea, COPD Chief complaint: Shortness of breath History of present illness: This is a 64-year-old female patient with a known history of severe oxygen dependent chronic obstructive pulmonary disease with chronic and ongoing tobacco dependence. She was last seen here in December 2023. She states she is unable to to our office due to cost. She states she has run out of her maintenance inhalers due to cost as well. She presented here to the emergency room early this morning with increasing shortness of breath, cough and congestion. Chest x-ray reveals chronic and for somatic changes without acute pulmonary process. White count 7.4. Hemoglobin 11.5. Platelets 251. Sodium 142. Potassium 4.4. Bicarb 38. BUN 12. Creatinine 0.35. Glucose 109. Troponin negative x 1. proBNP 40. She is seen today in consultation in the emergency department. She is currently sitting up on a stretcher. Awake and alert in no acute distress. She is maintaining O2 saturation in the 90s on 4 L/min per nasal cannula. She is afebrile. Hemodynamically stable. She is dyspneic with conversation. Dyspneic with minimal exertion. She is also complaining of neck pain from the "stress". No fever or chills. No productive cough. No hemoptysis. Review of Systems REVIEW OF SYSTEMS: CONSTITUTIONAL: Denies any recent significant weight loss or weight gain. EYES: Denies change in vision. EARS, NOSE, MOUTH, THROAT: Denies headaches, denies sore throat. CARDIOVASCULAR: Denies chest pain, palpitations or syncopal episodes. RESPIRATORY: As it of for shortness of breath, cough, congestion no hemoptysis. GASTROINTESTINAL: Denies change in appetite, denies abdominal pain GENITOURINARY: Denies hematuria, denies infections. MUSKULOSKELETAL: Positive for neck pain, denies swelling. INTEGUMENTARY: Denies rash, denies eczema. NEUROLOGICAL: Denies recent memory loss, no recent seizure activity. PSYCHIATRIC: Denies anxiety, denies depression. HEMATOLOGIC/LYMPHATIC: Denies anemia, denies enlarged lymph nodes. Past Medical History Past Medical History: Asthma, COPD, Osteoarthritis (OA) Additional Past Medical History / Comment(s): MIGRAINE HEADACHE, home o2, cataracts History of Any Multi-Drug Resistant Organisms: None Reported Past Surgical History: Section, Hysterectomy Additional Past Surgical History / Comment(s): right shoulder X2 , bilateral foot, toe amputation on the left foot , Past Anesthesia/Blood Transfusion Reactions: No Reported Reaction Additional Past Anesthesia/Blood Transfusion Reaction / Comment(s): WITH CODEINE OR MORPHINE- VOMITING AND HEADACHE Past Psychological History: Depression Smoking Status: Current every day smoker Past Alcohol Use History: Rare Past Drug Use History: None Reported - Past Family History Mother Family Medical History: Deep Vein Thrombosis (DVT) Medications and Allergies Home Medications Medication Instructions Recorded Confirmed Type Loratadine 10 mg PO DAILY 06/08/19 04/24/24 History Magnesium Oxide [Mag-Ox] 400 mg PO DAILY #15 tab 10/13/22 04/24/24 Rx Cholecalciferol [Vitamin D3 (25 50 mcg PO DAILY 01/01/24 04/24/24 History Mcg = 1000 Iu)] Cyanocobalamin (Vitamin B-12) 1,000 mcg PO DAILY 01/01/24 04/24/24 History [Vitamin B-12] Vitamin E (Dl,Tocopheryl Acet) 400 unit PO DAILY 01/01/24 04/24/24 History [Vitamin E (400 Iu = 180 mg)] Acetaminophen Tab [Tylenol] 1,000 mg PO Q6HR PRN tab 01/03/24 04/24/24 Rx Budesonide-Formot 160-4.5 Mcg 2 puff INHALATION RT-BID 30 Days 01/03/24 04/24/24 Rx [Symbicort 160-4.5 Mcg Inhaler] #1 each Albuterol Nebulized [Ventolin 2.5 mg INHALATION RT-QID PRN 04/24/24 04/24/24 History Nebulized] Aspirin/Acetaminophen/Caffeine 1 tab PO DAILY PRN 04/24/24 04/24/24 History [Excedrin Migraine Caplet] Allergies Allergy/AdvReac Type Severity Reaction Status Date / Time adhesive Allergy Rash/Hives Verified 04/24/24 09:31 codeine AdvReac SEVERE Verified 04/24/24 09:31 HEADACHE , VOMITING morphine AdvReac Vomiting, Verified 04/24/24 09:31 SEVERE HEADACHE Physical Exam Vitals: Vital Signs Temp Pulse Resp BP Pulse Ox 04/24/24 10:50 87 15 137/63 04/24/24 07:49 86 04/24/24 07:39 87 04/24/24 06:13 98.3 F 97 20 136/72 97 Intake and Output 04/23/24 04/24/24 04/24/24 22:59 06:59 14:59 Other: Weight 63.503 kg GENERAL EXAM: Alert, 64-year-old female, appears older than stated age, on 4 L nasal cannula, fairly comfortable in no apparent distress. HEAD: Normocephalic. EYES: Normal reaction of pupils, equal size. NOSE: Clear with pink turbinates. THROAT: No erythema or exudates. NECK: No masses, no JVD. CHEST: No chest wall deformity. LUNGS: Equal air entry with end expiratory wheeze, diminished throughout. CVS: S1 and S2 normal with no audible murmur, regular rhythm. ABDOMEN: No hepatosplenomegaly, normal bowel sounds, no guarding or rigidity. SPINE: No scoliosis or deformity SKIN: No rashes CENTRAL NERVOUS SYSTEM: No focal deficits, tone is normal in all 4 extremities. EXTREMITIES: There is no peripheral edema. No clubbing, no cyanosis. Peripheral pulses are intact. Results - Laboratory Findings CBC and BMP: 04/24/24 06:32 04/24/24 08:05 PT/INR, D-dimer PT 10.0 sec (10.0-12.5) 04/24/24 06:32 INR 0.9 (<1.2) 04/24/24 06:32 Abnormal lab findings: Abnormal Labs 04/24/24 04/24/24 06:32 08:05 RBC 3.57 L Carbon Dioxide 38 H Creatinine 0.35 L Glucose 109 H - Diagnostic Findings Chest x-ray: image reviewed Assessment and Plan Assessment: Acute on chronic hypoxic respiratory failure secondary to an acute exacerbation of chronic obstructive pulmonary disease Severe oxygen dependent chronic obstructive pulmonary disease FEV1 value 20% of predicted/0.6 L Chronic and ongoing tobacco dependence Medical noncompliance due to cost History of migraines History of osteoarthritis History of previous GI bleed in 2021 Plan: The patient was seen and evaluated Chest x-ray, labs and medications reviewed Add DuoNeb inhalations, Symbicort, Solu-Medrol Titrate the FiO2 as tolerated Educated regarding the importance of complete smoking cessation NicoDerm patch will be offered We will continue to follow and make further recommendations based on her clinical status I have personally seen and examined the patient, performed the documentation and the assessment and plan as written. Number of minutes spent on the visit: 20.
[2024-04-24] MEDS: IPRATROPIUM-ALBUTEROL 3 ML NEB INHALATION SCH (15:47)
[2024-04-24] MEDS: NICOTINE 21MG/24HR PATCH TRANSDERM SCH (16:15)
[2024-04-24] MEDS: methylPREDNISolone SOD SUCCI 125 MG/2 ML VIAL IV SCH (18:49)
[2024-04-24] MEDS ORDERED: SYMBICORT 160-4.5 MCG INHALER INHALATION SCH (20:00)
[2024-04-24] MEDS: HEPARIN SODIUM,PORCINE 5,000 UNIT/ML 1 ML VIAL SQ SCH (20:33)
[2024-04-24] MEDS: FORMOTEROL FUMARATE 20 MCG/2 ML NEBU INHALATION SCH (20:41)
[2024-04-24] MEDS: BUDESONIDE 1 MG/2 ML NEBU INHALATION SCH (20:42)
--- NOTE | 2024-04-24 21:05 | HP ---
HISTORY AND PHYSICAL CHIEF COMPLAINT: Shortness of breath. HISTORY OF PRESENT ILLNESS: This is a 64-year-old woman with a past medical history of multiple medical problems including asthma, COPD, being followed by Dr. Rodriguez in the outpatient setting, complaining of shortness of breath. The patient had increased shortness of breath for the last 4 or 5 days. The patient normally wears about 4 L of oxygen. The patient came to [facility] and chest x-ray showed no evidence of any acute pneumonia. The patient is admitted for further evaluation and treatment. There is no history of any fever, rigors, or chills. Of note, the patient had a parakeet, which talks to her. PAST MEDICAL HISTORY: Asthma, COPD. Rest of the history and rest of the chart is also reviewed. HOME MEDICATIONS: Reviewed include Excedrin. Dose and rest of medications reviewed. ALLERGIES: Adhesives. FAMILY HISTORY: DVT in the family. SOCIAL HISTORY: Current smoking. REVIEW OF SYSTEMS: A 14-point review is negative except as mentioned earlier. PHYSICAL EXAMINATION: VITAL SIGNS: Pulse 87, blood pressure 137/66, respirations 15. HEENT: Conjunctivae normal. CARDIOVASCULAR: S1, S2. RESPIRATIONS: Breathing efforts are markedly increased. Bilateral scattered rhonchi and crackles. Respiratory wheezing. ABDOMEN: Soft, nontender. LEGS: No edema. NERVOUS SYSTEM: Nonfocal. SKIN: No ulcer, rash, bleeding. JOINTS: No active deforming arthropathy. LABORATORY DATA: Noted. ASSESSMENT: 1. Chronic obstructive pulmonary disease acute exacerbation, acute purulent tracheobronchitis. 2. History of continued nicotine dependence. 3. History of asthma. 4. History of degenerative joint disease. 5. History of migraine headaches. RECOMMENDATIONS AND DISCUSSION: This is a 64-year-old woman, who presented with multiple complex medical issues, we will monitor the patient closely. Continue the current medications, bronchodilators, steroids. We will closely follow with Pulmonary. Guarded prognosis. Further recommendations to follow. See orders for further details. MMODL / IJN: [id number] /
[2024-04-24] MEDS: HYDROcodone/APAP 5-325MG 1 EACH TAB PO PRN (22:11)
[2024-04-25] MEDS: ASPIRIN-ACET-CAFF 250-250-65MG 1 EACH TAB PO PRN (01:43)
[2024-04-25] MEDS: PANTOPRAZOLE 40 MG TABLET PO SCH (06:36)
[2024-04-25] MEDS: CYANOCOBALAMIN 500 MCG TAB PO SCH (08:58)
[2024-04-25] MEDS: VITAMIN E (DL,TOCOPHERYL ACET) 400 UNIT (180 MG) CAP PO SCH (08:58)
[2024-04-25] MEDS: LORATADINE 10 MG TAB PO SCH (08:59)
[2024-04-25] MEDS: CHOLECALCIFEROL 25 MCG (1000 IU) TABLET PO SCH (08:59)
[2024-04-25] MEDS: MAGNESIUM OXIDE 400 MG TAB PO SCH (08:59)
[2024-04-25] MEDS: AZITHROMYCIN 500 MG in SODIUM CHLORIDE 0.9% 250 ML IVPB SCH (11:20)
--- NOTE | 2024-04-25 12:12 | P.PN ---
Subjective Progress Note Date: 04/25/24 This is a 64-year-old female patient with a known history of severe oxygen dependent chronic obstructive pulmonary disease with chronic and ongoing tobacco dependence. She was last seen here in December 2023. She states she is unable to to our office due to cost. She states she has run out of her maintenance inhalers due to cost as well. She presented here to the emergency room early this morning with increasing shortness of breath, cough and congestion. Chest x-ray reveals chronic and for somatic changes without acute pulmonary process. White count 7.4. Hemoglobin 11.5. Platelets 251. Sodium 142. Potassium 4.4. Bicarb 38. BUN 12. Creatinine 0.35. Glucose 109. Troponin negative x 1. proBNP 40. She is seen today in consultation in the emergency department. She is currently sitting up on a stretcher. Awake and alert in no acute distress. She is maintaining O2 saturation in the 90s on 4 L/min per nasal cannula. She is afebrile. Hemodynamically stable. She is dyspneic with conversation. Dyspneic with minimal exertion. She is also complaining of neck pain from the "stress". No fever or chills. No productive cough. No hemoptysis. The patient is seen today April 25, 2024 in follow-up on the regular medical floor. She is currently sitting up in bed. Awake and alert in no acute distress. Doing a bit better today compared to yesterday. She is maintaining O2 saturations in the 90s on 4 L/min per nasal cannula. No new labs today. She is continue on DuoNeb inhalations, Pulmicort and Perforomist inhalation, Solu- Medrol. Empiric antibiotics in the form of ceftriaxone and azithromycin. Heparin for DVT prophylaxis. Objective - Vital Signs Vital signs: Vital Signs Temp 98.6 F 04/25/24 07:20 Pulse 76 04/25/24 12:06 Resp 18 04/25/24 07:20 BP 133/63 04/25/24 07:20 Pulse Ox 92 L 04/25/24 07:20 FiO2 Intake & Output 04/24/24 04/25/24 04/25/24 18:59 06:59 18:59 Weight 63.503 kg Other: # Voids 3 - Exam GENERAL EXAM: Alert, 64-year-old female, on 4 L nasal cannula, comfortable in no apparent distress. HEAD: Normocephalic. EYES: Normal reaction of pupils, equal size. NOSE: Clear with pink turbinates. THROAT: No erythema or exudates. NECK: No masses, no JVD. CHEST: No chest wall deformity. LUNGS: Equal air entry with end expiratory wheeze, diminished throughout. CVS: S1 and S2 normal with no audible murmur, regular rhythm. ABDOMEN: No hepatosplenomegaly, normal bowel sounds, no guarding or rigidity. SPINE: No scoliosis or deformity SKIN: No rashes CENTRAL NERVOUS SYSTEM: No focal deficits, tone is normal in all 4 extremities. EXTREMITIES: There is no peripheral edema. No clubbing, no cyanosis. P eripheral pulses are intact. - Labs CBC & Chem 7: 04/24/24 06:32 04/24/24 08:05 Assessment and Plan Assessment: Acute on chronic hypoxic respiratory failure secondary to an acute exacerbation of chronic obstructive pulmonary disease Severe oxygen dependent chronic obstructive pulmonary disease FEV1 value 20% of predicted/0.6 L Chronic tobacco dependence, vaping Medical noncompliance due to cost History of migraines History of osteoarthritis History of previous GI bleed in 2021 Plan: The patient was seen and evaluated Medications reviewed Continue DuoNeb inhalations, Symbicort, Solu-Medrol Continue antibiotics for now, check a procalcitonin Titrate the FiO2 as tolerated Educated regarding the importance of not vaping We will continue to follow I have personally seen and examined the patient, performed the documentation and the assessment and plan as written. Number of minutes spent on the visit: 10.
[2024-04-25] MEDS: BACLOFEN 10 MG TAB PO SCH (13:34)
[2024-04-25] MEDS: HYDROmorphone 0.5 MG/0.5 ML SYRINGE IVP PRN (13:34)
--- NOTE | 2024-04-25 14:02 | XR ---
Cervical spine HISTORY: Neck pain COMPARISON: 12/31/2017. TECHNIQUE: 6 views of the cervical spine were obtained. FINDINGS: The craniovertebral junction relationships and prevertebral soft tissues are normal. The cervical vertebral segments are normal in height and alignment. There is diffuse osteopenia. There is an unfused fracture of the anterior aspect of C3. There is diffuse thin calcification of the anterior and posterior longitudinal ligaments suggestive of ankylosing spondylitis. There is no bony neural foraminal encroachment. There is mild degeneration of facet joints. IMPRESSION: 1. No acute changes. No interval change compared to previous. 2. Findings consistent with ankylosing spondylitis.
[2024-04-25] MEDS: FLUTICASONE 50MCG/SPRAY NASAL 16GM EA NOSTRIL SCH (16:16)
--- NOTE | 2024-04-26 02:32 | PN ---
PROGRESS NOTE DATE OF SERVICE: 04/25/2024 SUBJECTIVE: This is a 64-year-old woman, who was admitted with COPD acute exacerbation, complaining of severe neck pain. The patient is unable to move the neck at this time. The patient's neck is very stiff and the pain is located in the neck and around the upper part of the chest. There is no history of any fever, rigors, or chills. The patient is extremely short of breath. PAST MEDICAL HISTORY: Reviewed. REVIEW OF SYSTEMS: A 14-point review is negative except as mentioned earlier. CURRENT MEDICATIONS: Reviewed include DuoNeb. Dose and rest of medications reviewed. PHYSICAL EXAMINATION: VITAL SIGNS: Pulse is 78, blood pressure is 133/63, respirations 18. HEENT: Conjunctivae normal. NECK: Movements of neck are painfully limited. CARDIOVASCULAR: S1, S2. RESPIRATIONS: Bilateral scattered rhonchi and crackles. ABDOMEN: Soft, nontender. NERVOUS SYSTEM: No focal deficits. GAIT: Not tested. LABORATORY DATA: Reviewed. ASSESSMENT: 1. Chronic obstructive pulmonary disease acute exacerbation with acute tracheobronchitis. 2. Severe neck pain and spasm, undetermined etiology, possibly EGD. 3. History of continued nicotine dependence. 4. History of asthma. 5. History of DJD. 6. History of migraine headaches. RECOMMENDATIONS AND DISCUSSION: Recommend to continue current management and continue symptomatic treatment. I would add a small dose of Dilaudid. Continue antibiotics, bronchodilators, and steroids. I would also recommend a chest x-ray, neck x-rays, and continue to monitor. Guarded prognosis because of multiple complex medical issues. Further recommendations to follow. See orders for further details. MMODL / IJN: [id number] /
[2024-04-26 09:15] LABS: Basophils # (A) 0.01 X 10*3/uL (0.00-0.10); Basophils % (A) 0.1 %; Eosinophils # (A) 0 X 10*3/uL (0.04-0.35); Eosinophils % (A) 0 %; HCT 32.1 % (37.2-46.3); HGB 10.3 g/dL (12.0-15.0); Lymphocytes # (A) 0.47 X 10*3/uL (0.90-5.00); MCH 32.5 pg (27.0-32.0); MCHC 32.1 g/dL (32.0-37.0); MCV 101.3 FL (80.0-97.0); Mean Platelet Volume 10.4 FL (9.5-12.2); Monocytes # (A) 0.64 X 10*3/uL (0.20-1.00); Monocytes % (A) 5.5 %; NRBC Per 100 WBC 0 X 10*3/uL (0.00-0.01); Neutrophils # (A) 10.47 X 10*3/uL (1.80-7.70); Neutrophils % (A) 90.1 %; Platelet Count 254 X 10*3/uL (140-440); RBC 3.17 X 10*6/uL (4.10-5.20); RDW 12.4 % (11.5-14.5); WBC 11.63 X 10*3/uL (4.50-10.00)
[2024-04-26 09:17] LABS: ALT 16 U/L (8-44); AST 20 U/L (13-35); Albumin 4.1 g/dL (3.8-4.9); Albumin/Globulin Ratio 2.05 Ratio (1.60-3.17); Alkaline Phosphatase 77 U/L (41-126); BUN/Creat Ratio 42.25 Ratio (12.00-20.00); Blood Urea Nitrogen 16.9 mg/dL (9.0-27.0); Calcium 9.7 mg/dL (8.7-10.3); Carbon Dioxide 34.6 mmol/L (21.6-31.8); Chloride 99 mmol/L (96-109); Glucose 133 mg/dL (70-110); Potassium 4.8 mmol/L (3.5-5.5); Sodium 143 mmol/L (135-145); Total Bilirubin <0.2 mg/dL (0.3-1.2); Total Protein 6.1 g/dL (6.2-8.2)
--- NOTE | 2024-04-26 14:10 | P.PN ---
Subjective Progress Note Date: 04/26/24 This is a 64-year-old female patient with a known history of severe oxygen dependent chronic obstructive pulmonary disease with chronic and ongoing tobacco dependence. She was last seen here in December 2023. She states she is unable to to our office due to cost. She states she has run out of her maintenance inhalers due to cost as well. She presented here to the emergency room early this morning with increasing shortness of breath, cough and congestion. Chest x-ray reveals chronic and for somatic changes without acute pulmonary process. White count 7.4. Hemoglobin 11.5. Platelets 251. Sodium 142. Potassium 4.4. Bicarb 38. BUN 12. Creatinine 0.35. Glucose 109. Troponin negative x 1. proBNP 40. She is seen today in consultation in the emergency department. She is currently sitting up on a stretcher. Awake and alert in no acute distress. She is maintaining O2 saturation in the 90s on 4 L/min per nasal cannula. She is afebrile. Hemodynamically stable. She is dyspneic with conversation. Dyspneic with minimal exertion. She is also complaining of neck pain from the "stress". No fever or chills. No productive cough. No hemoptysis. The patient is seen today April 25, 2024 in follow-up on the regular medical floor. She is currently sitting up in bed. Awake and alert in no acute distress. Doing a bit better today compared to yesterday. She is maintaining O2 saturations in the 90s on 4 L/min per nasal cannula. No new labs today. She is continue on DuoNeb inhalations, Pulmicort and Perforomist inhalation, Solu- Medrol. Empiric antibiotics in the form of ceftriaxone and azithromycin. Heparin for DVT prophylaxis. The patient is seen today April 26, 2024 in follow-up on the regular medical floor. She is awake and alert in no acute distress. Breathing easier today compared to yesterday. She denies any worsening shortness of breath, cough or congestion. She is maintaining O2 saturations in the 90s on 4 L/min per nasal cannula. She is afebrile. Hemodynamically stable. Her main complaint is continued neck pain. Cervical spine x-rays revealed no acute changes. No interval change compared to previous in 2018. The findings are consistent with ankylosing spondylitis. White count 11.6. Hemoglobin 10.3. Platelets 254. Sodium 143. Potassium 4.8. Bicarb 35. BUN 17. Creatinine 0.4. Glucose 133. Her procalcitonin was negative at 0.02. Antibiotics will be discontinued. He is on DuoNeb inhalations Pulmicort and Perforomist inhalations, IV Solu-Medrol. Objective - Vital Signs Vital signs: Vital Signs Temp 98.1 F 04/26/24 13:01 Pulse 88 04/26/24 13:01 Resp 19 04/26/24 13:01 BP 100/57 04/26/24 13:01 Pulse Ox 93 L 04/26/24 13:01 FiO2 Intake & Output 04/25/24 04/26/24 04/26/24 18:59 06:59 18:59 Other: Voiding Method Bedside Commode # Voids 2 3 - Exam GENERAL EXAM: Alert, 64-year-old female, sitting up in bed, on 4 L nasal cannula, in no apparent distress. HEAD: Normocephalic. EYES: Normal reaction of pupils, equal size. NOSE: Clear with pink turbinates. THROAT: No erythema or exudates. NECK: No masses, no JVD. CHEST: No chest wall deformity. LUNGS: Equal air entry with end expiratory wheeze, diminished throughout. CVS: S1 and S2 normal with no audible murmur, regular rhythm. ABDOMEN: No hepatosplenomegaly, normal bowel sounds, no guarding or rigidity. SPINE: No scoliosis or deformity SKIN: No rashes CENTRAL NERVOUS SYSTEM: No focal deficits, tone is normal in all 4 extremities. EXTREMITIES: There is no peripheral edema. No clubbing, no cyanosis. Peripheral pulses are intact. - Labs CBC & Chem 7: 04/26/24 04:29 04/26/24 04:29 Labs: Abnormal Lab Results - Last 24 Hours (Table) 04/26/24 04/26/24 Range/Units 04:29 04:29 WBC 11.63 H (4.50-10.00) X 10*3/uL RBC 3.17 L (4.10-5.20) X 10*6/uL Hgb 10.3 L (12.0-15.0) g/dL Hct 32.1 L (37.2-46.3) % MCV 101.3 H (80.0-97.0) FL MCH 32.5 H (27.0-32.0) pg Neutrophils # 10.47 H (1.80-7.70) X 10*3/uL Lymphocytes # 0.47 L (0.90-5.00) X 10*3/uL Eosinophils # 0 L (0.04-0.35) X 10*3/uL Carbon Dioxide 34.6 H (21.6-31.8) mmol/L Creatinine 0.4 L (0.6-1.5) mg/dL BUN/Creatinine Ratio 42.25 H (12.00-20.00) Ratio Glucose 133 H (70-110) mg/dL Total Bilirubin <0.2 L (0.3-1.2) mg/dL Total Protein 6.1 L (6.2-8.2) g/dL Assessment and Plan Assessment: Acute on chronic hypoxic respiratory failure secondary to an acute exacerbation of chronic obstructive pulmonary disease. Procalcitonin negative Severe oxygen dependent chronic obstructive pulmonary disease FEV1 value 20% of predicted/0.6 L Chronic tobacco dependence, vaping Medical noncompliance due to cost Acute on chronic neck pain secondary to ankylosing spondylitis History of migraines History of osteoarthritis History of previous GI bleed in 2021 Plan: The patient was seen and evaluated Focal spine x-ray, labs and medications reviewed Orthopedic consult regarding neck pain Continue DuoNeb inhalations, Symbicort, Solu-Medrol Procalcitonin negative, antibiotics discontinued Titrate the FiO2 as tolerated We will continue to follow I have personally seen and examined the patient, performed the documentation and the assessment and plan as written. Number of minutes spent on the visit: 10.
--- NOTE | 2024-04-26 14:55 | XR ---
EXAMINATION TYPE: XR lumbar spine with bend/flex DATE OF EXAM: 04/26/2024 2:38 PM CLINICAL INDICATION:Female, 64 years old with history of ankylosing spondylitis; [facility] COMPARISON: None TECHNIQUE: XR lumbar spine with bend/flex - Frontal, lateral and coned in L5-S1 lateral views of the spine. FINDINGS: No evidence of any acute osseous pathology. No evidence of loss of vertebral body height i s seen. There is mild scoliotic alignment of the lumbar vertebral bodies. Mild scattered disc space n arrowing. Multilevel marginal osteophyte formation throughout the visualized spine. There is facet flakita int arthropathy throughout the spine. Scattered at least mild neural foraminal stenosis. IMPRESSION: 1. No acute fracture. 2. Moderate multilevel disc degeneration.
[2024-04-26] MEDS: HYDROmorphone 0.5 MG/0.5 ML SYRINGE IVP PRN (15:42)
--- NOTE | 2024-04-27 04:20 | PN ---
PROGRESS NOTE DATE OF SERVICE: 04/26/2024 SUBJECTIVE: This is a 64-year-old woman, who was admitted with COPD acute exacerbation, complaining of severe neck pain and neck spasms. Multiple medications administered. The patient is still complaining of pain /. The patient unable to move the neck at all. The x- ray showed ankylosing spondylitis. PAST MEDICAL HISTORY: Reviewed. REVIEW OF SYSTEMS: 14-point review is negative. CURRENT MEDICATIONS: Reviewed include Excedrin and [place], dose and rest of medications noted. PHYSICAL EXAMINATION: VITAL SIGNS: Pulse is 75, blood pressure 120/70, respirations 18. HEENT: Conjunctivae normal. NECK: Movements are painful and limited. Some local tenderness also present. CHEST: Few scattered rhonchi. ABDOMEN: Soft. NERVOUS SYSTEM: Nonfocal. LABORATORY DATA: Reviewed. ASSESSMENT: 1. Chronic obstructive pulmonary disease acute exacerbation with acute tracheobronchitis. 2. Severe neck pain and spasm, possible ankylosing spondylitis, rule out inflammatory arthropathy, rule out degenerative joint disease. 3. History of continued nicotine dependence. 4. History of asthma. 5. History of degenerative joint disease. 6. History of migraine headaches. RECOMMENDATIONS: Recommend to continue current management and continue symptomatic treatment. Adjust the pain medications. I would also recommend x-rays of the lumbosacral spine and inflammatory markers. I would also recommend consultation with Dr. Glaicia for evaluation of the neck for any acute changes and for possible CAT scan. Also, we will continue to monitor. Prognosis guarded. Discussed the patient at length. Further recommendations to follow. MMODL / IJN: [id number] /
[2024-04-27 10:52] LABS: Basophils # (A) 0.02 X 10*3/uL (0.00-0.10); Basophils % (A) 0.2 %; Eosinophils # (A) 0 X 10*3/uL (0.04-0.35); Eosinophils % (A) 0 %; HCT 33.5 % (37.2-46.3); HGB 10.4 g/dL (12.0-15.0); Lymphocytes # (A) 0.36 X 10*3/uL (0.90-5.00); MCH 32.2 pg (27.0-32.0); MCV 103.7 FL (80.0-97.0); Mean Platelet Volume 10.3 FL (9.5-12.2); Monocytes # (A) 0.57 X 10*3/uL (0.20-1.00); Monocytes % (A) 4.7 %; NRBC Per 100 WBC 0 X 10*3/uL (0.00-0.01); Neutrophils # (A) 11.06 X 10*3/uL (1.80-7.70); Neutrophils % (A) 91.7 %; Platelet Count 260 X 10*3/uL (140-440); RBC 3.23 X 10*6/uL (4.10-5.20); RDW 12.4 % (11.5-14.5); WBC 12.06 X 10*3/uL (4.50-10.00)
[2024-04-27 10:57] LABS: Blood Urea Nitrogen 18.4 mg/dL (9.0-27.0); Calcium 9.3 mg/dL (8.7-10.3); Carbon Dioxide 32.9 mmol/L (21.6-31.8); Chloride 99 mmol/L (96-109); Glucose 135 mg/dL (70-110); Potassium 4.8 mmol/L (3.5-5.5); Sodium 142 mmol/L (135-145)
--- NOTE | 2024-04-27 12:54 | P.CNOR ---
History of Present Illness - [facility] Consult date: 04/27/24 Requesting physician: Mine Wilson Consult reason: neck pain History of present illness: Patient is a 64-year-old female who presented to the hospital on 04/24/2024 with a chief complaint of shortness of breath. Patient does have a past medical history significant for COPD. Orthopedics was consulted due to ongoing neck pain over the past 10 days. Patient was seen at bedside this morning sitting up in bed with a towel over her neck. Patient says she has not had any spine surgery in the past. She has had ongoing neck pain for the past 10 days. Patient denies any trauma/falls over the past several weeks. Patient is unsure really how the neck pain started. Patient says she does have a history of thoracic outlet syndrome with multiple surgeries performed in the past on her ri t side. Patient says most of the time she just tenses up between the shoulder blades and gets a pain that goes from the shoulder blades up to the base of her skull and back down. Patient denies any radiation of pain down her arms. Patient denies any fine motor skill issues. Patient denies any difficulties feeding herself or using a pen to write her name. Patient says normally at home she takes Tylenol for pain. Patient says she does not need to take any narcotics but since coming to the hospital the pain has been to the point where she has felt that she has needed some of the stronger narcotics for pain control. Patient denies any loss of bowel/bladder control. Patient normally ambulates at home independently. She says she does have a cane and a walker if she needs it. Patient denies chest pain, fever, nausea, vomiting, change in vision, loss of bowel/bladder control. Past Medical History Past Medical History: Asthma, COPD, Osteoarthritis (OA) Additional Past Medical History / Comment(s): MIGRAINE HEADACHE, home o2, cataracts History of Any Multi-Drug Resistant Organisms: None Reported Past Surgical History: Section, Hysterectomy Additional Past Surgical History / Comment(s): right shoulder X2 , bilateral foot, toe amputation on the left foot , Past Anesthesia/Blood Transfusion Reactions: No Reported Reaction Additional Past Anesthesia/Blood Transfusion Reaction / Comm: WITH CODEINE OR MORPHINE- VOMITING AND HEADACHE Past Psychological History: Depression Smoking Status: Current every day smoker Past Alcohol Use History: Rare Past Drug Use History: None Reported - Past Family History Mother Family Medical History: Deep Vein Thrombosis (DVT) Medications and Allergies Home Medications Medication Instructions Recorded Confirmed Type Loratadine 10 mg PO DAILY 06/08/19 04/24/24 History Magnesium Oxide [Mag-Ox] 400 mg PO DAILY #15 tab 10/13/22 04/24/24 Rx Cholecalciferol [Vitamin D3 (25 50 mcg PO DAILY 01/01/24 04/24/24 History Mcg = 1000 Iu)] Cyanocobalamin (Vitamin B-12) 1,000 mcg PO DAILY 01/01/24 04/24/24 History [Vitamin B-12] Vitamin E (Dl,Tocopheryl Acet) 400 unit PO DAILY 01/01/24 04/24/24 History [Vitamin E (400 Iu = 180 mg)] Acetaminophen Tab [Tylenol] 1,000 mg PO Q6HR PRN tab 01/03/24 04/24/24 Rx Budesonide-Formot 160-4.5 Mcg 2 puff INHALATION RT-BID 30 Days 01/03/24 04/24/24 Rx [Symbicort 160-4.5 Mcg Inhaler] #1 each Albuterol Nebulized [Ventolin 2.5 mg INHALATION RT-QID PRN 04/24/24 04/24/24 History Nebulized] Aspirin/Acetaminophen/Caffeine 1 tab PO DAILY PRN 04/24/24 04/24/24 History [Excedrin Migraine Caplet] Fluticasone Nasal [place] [Flonase 2 spray EA NOSTRIL DAILY 04/25/24 04/25/24 History Nasal Pillsbury] Allergies Allergy/AdvReac Type Severity Reaction Status Date / Time adhesive Allergy Rash/Hives Verified 04/24/24 09:31 codeine AdvReac SEVERE Verified 04/24/24 09:31 HEADACHE , VOMITING morphine AdvReac Vomiting, Verified 04/24/24 09:31 SEVERE HEADACHE Physical Examination Inspection: Positive for scoliosis throughout the spine. Negative for any open fracture, significant erythema/ecchymosis/open wounds. Sensation: Equal, symmetric, bilateral intact throughout the upper and lower extremities on exam Palpation: Positive for moderate tenderness to palpation over the cervical spine at midline as well as in the paravertebral regions. Nontender to palpation throughout the thoracic spine and lumbar spine midline positive for tenderness to palpation over the bilateral SI joints. Range of motion: Full range of motion throughout bilateral lower extremities on exam. Full range of motion throughout bilateral elbows and wrists in flexion/extension. Patient is able to forward elevate bilateral shoulders to about 135 degrees before she says she gets increased pain to the neck where she is not able to raise arms any higher. Patient is able to abduct bilateral sh oulders to about 110 degrees bilaterally. Motor: Water Service Dispatcher strength 5/5 bilaterally. 4+/5 in resisted external/internal rotation, abduction and forward elevation of the shoulders. 4+/5 in bilateral elbows and wrist in flexion and extension. 4+/5 in all major motor groups in bilateral lower extremities Neurovascular: Radial pulse intact, 2+ bilaterally. Cap refill <3 sec in digits UE. Special test: Negative Homans bilaterally. Negative Tima bilaterally. Results - Labs Labs: H & H 04/24/24 04/26/24 Range/Units 06:32 04:29 Hgb 11.5 10.3 L (11.4-16.0) gm/dL Hct 35.7 32.1 L (34.0-46.0) % Coagulation 04/24/24 Range/Units 06:32 INR 0.9 (<1.2) Result Diagrams: 04/27/24 06:23 04/27/24 06:23 - Diagnostic results Cervical AP/lateral x-ray: report reviewed, image reviewed (X-ray of the cervi felecia spine has been reviewed. There is evident degenerative disc disease and spondylosis of the cervical spine. Positive for ankylosing spondylitis. There is evidence bony fragment anterior to the C3 vertebra.) Lumbar AP/lateral x-ray: report reviewed, image reviewed (X-ray of the lumbar spine does reveal spondylosis throughout. Negative for any fractures. Positive for degenerative disc disease and some mild neuroforaminal stenosis) Assessment and Plan Assessment: 1. Cervical spondylosis; cervical degenerative disc disease; neck pain; ankylosing spondylitis Plan: 1. Cervical spondylosis; cervical degenerative disc disease; neck pain; ankylosing spondylitis - X-ray of the cervical spine has been reviewed. There is evident degenerative disc disease and spondylosis of the cervical spine. Pos itive for ankylosing spondylitis. There is evidence bony fragment anterior to the C3 vertebra. Lumbar spine x-rays positive for degenerative disc disease and spondylosis. Positive for some mild foraminal stenosis. Negative for any fractures. Patient does not present with any significant weakness or positive tensioning signs on exam. CT scan of the cervical spine has been ordered for further evaluation. At this time we are not recommending any emergent/urgent orthopedic surgical intervention. We recommend conservative measures at this time with the use of pain medication and PT/OT. We will await results from CT scan of cervical spine. 2. Appreciate medical and pulmonology management 3. Pain management -Tylenol; baclofen; Parker 4. DVT prophylaxis -heparin 5. GI prophylaxis -Protonix; Mag-Ox 6. PT/OT -weightbearing as tolerated with walker as needed 7. Encourage incentive spirometer use 8. Appreciate consult Time with Patient: Less than 30
--- NOTE | 2024-04-27 13:59 | P.PN ---
Subjective Progress Note Date: 04/27/24 This is a 64-year-old female patient with a known history of severe oxygen dependent chronic obstructive pulmonary disease with chronic and ongoing tobacco dependence. She was last seen here in December 2023. She states she is unable to to our office due to cost. She states she has run out of her maintenance inhalers due to cost as well. She presented here to the emergency room early this morning with increasing shortness of breath, cough and congestion. Chest x-ray reveals chronic and for somatic changes without acute pulmonary process. White count 7.4. Hemoglobin 11.5. Platelets 251. Sodium 142. Potassium 4.4. Bicarb 38. BUN 12. Creatinine 0.35. Glucose 109. Troponin negative x 1. proBNP 40. She is seen today in consultation in the emergency department. She is currently sitting up on a stretcher. Awake and alert in no acute distress. She is maintaining O2 saturation in the 90s on 4 L/min per nasal cannula. She is afebrile. Hemodynamically stable. She is dyspneic with conversation. Dyspneic with minimal exertion. She is also complaining of neck pain from the "stress". No fever or chills. No productive cough. No hemoptysis. The patient is seen today April 25, 2024 in follow-up on the regular medical floor. She is currently sitting up in bed. Awake and alert in no acute distress. Doing a bit better today compared to yesterday. She is maintaining O2 saturations in the 90s on 4 L/min per nasal cannula. No new labs today. She is continue on DuoNeb inhalations, Pulmicort and Perforomist inhalation, Solu- Medrol. Empiric antibiotics in the form of ceftriaxone and azithromycin. Heparin for DVT prophylaxis. The patient is seen today April 26, 2024 in follow-up on the regular medical floor. She is awake and alert in no acute distress. Breathing easier today compared to yesterday. She denies any worsening shortness of breath, cough or congestion. She is maintaining O2 saturations in the 90s on 4 L/min per nasal cannula. She is afebrile. Hemodynamically stable. Her main complaint is continued neck pain. Cervical spine x-rays revealed no acute changes. No interval change compared to previous in 2018. The findings are consistent with ankylosing spondylitis. White count 11.6. Hemoglobin 10.3. Platelets 254. Sodium 143. Potassium 4.8. Bicarb 35. BUN 17. Creatinine 0.4. Glucose 133. Her procalcitonin was negative at 0.02. Antibiotics will be discontinued. He is on DuoNeb inhalations Pulmicort and Perforomist inhalations, IV Solu-Medrol. The patient is seen today April 27, 2024 in follow-up on the regular medical floor. She is sitting up in bed. Awake and alert in no acute distress. Continues to improve from the pulmonary standpoint. Less bronchospastic less wheezing nearly back to her baseline. Continue on DuoNeb inhalations, Symbicort, prednisone taper. Heparin for DVT prophylaxis. She has been evaluated by orthopedics regarding her acute on chronic neck pain. White count 12.0. Hemoglobin 10.4. Platelets 260. Sodium 142. Potassium 4.8. Bicarb 33. BUN 18. Creatinine 0.5. Glucose 135. Objective - Vital Signs Vital signs: Vital Signs Temp 98.2 F 04/27/24 13:15 Pulse 74 04/27/24 13:15 Resp 18 04/27/24 13:15 BP 138/54 04/27/24 13:15 Pulse Ox 93 L 04/27/24 13:15 FiO2 Intake & Output 04/26/24 04/27/24 04/27/24 18:59 06:59 18:59 Other: Voiding Method Bedside Commode Bedside Commode # Voids 3 2 3 - Exam GENERAL EXAM: Alert, 64-year-old female, on 4 L nasal cannula, in no apparent distress. HEAD: Normocephalic. EYES: Normal reaction of pupils, equal size. NOSE: Clear with pink turbinates. THROAT: No erythema or exudates. NECK: No masses, no JVD. CHEST: No chest wall deformity. LUNGS: Equal air entry with end expiratory wheeze, diminished throughout. CVS: S1 and S2 normal with no audible murmur, regular rhythm. ABDOMEN: No hepatosplenomegaly, normal bowel sounds, no guarding or rigidity. SPINE: No scoliosis or deformity SKIN: No rashes CENTRAL NERVOUS SYSTEM: No focal deficits, tone is normal in all 4 extremities. EXTREMITIES: There is no peripheral edema. No clubbing, no cyanosis. Peripheral pulses are intact. - Labs CBC & Chem 7: 04/27/24 06:23 04/27/24 06:23 Labs: Abnormal Lab Results - Last 24 Hours (Table) 04/27/24 04/27/24 Range/Units 06:23 06:23 WBC 12.06 H (4.50-10.00) X 10*3/uL RBC 3.23 L (4.10-5.20) X 10*6/uL Hgb 10.4 L (12.0-15.0) g/dL Hct 33.5 L (37.2-46.3) % MCV 103.7 H (80.0-97.0) FL MCH 32.2 H (27.0-32.0) pg MCHC 31.0 L (32.0-37.0) g/dL Immature Gran # 0.05 H (0.00-0.04) X 10*3/uL Neutrophils # 11.06 H (1.80-7.70) X 10*3/uL Lymphocytes # 0.36 L (0.90-5.00) X 10*3/uL Eosinophils # 0 L (0.04-0.35) X 10*3/uL Carbon Dioxide 32.9 H (21.6-31.8) mmol/L Creatinine 0.5 L (0.6-1.5) mg/dL BUN/Creatinine Ratio 36.80 H (12.00-20.00) Ratio Glucose 135 H (70-110) mg/dL Assessment and Plan Assessment: Acute on chronic hypoxic respiratory failure secondary to an acute exacerbation of chronic obstructive pulmonary disease. Procalcitonin negative Severe oxygen dependent chronic obstructive pulmonary disease FEV1 value 20% of predicted/0.6 L Chronic tobacco dependence, vaping Medical noncompliance due to cost Acute on chronic neck pain secondary to ankylosing spondylitis. Being worked up by orthopedics History of migraines History of osteoarthritis History of previous GI bleed in 2021 Plan: The patient was seen and evaluated Labs and medications reviewed Continue DuoNeb inhalations, Symbicort Continue a prednisone taper Titrate the FiO2 as tolerated Neck pain workup in progress I have personally seen and examined the patient, performed the documentation and the assessment and plan as written. Number of minutes spent on the visit: 10.
[2024-04-27] MEDS: CALCIUM CARBONATE 500 MG CHEWABLE PO PRN (14:31)
--- NOTE | 2024-04-27 16:02 | CT ---
EXAMINATION TYPE: CT cervical spine wo con CT DLP: 243.7 mGycm, Automated exposure control for dose reduction was used. DATE OF EXAM: 04/27/2024 1:52 PM COMPARISON: Cervical spine radiographs 04/25/2024. CT soft tissue neck 08/09/20183. CLINICAL INDICATION:Female, 64 years old with history of pain; PHH, Pain, COPD Exacerbation TECHNIQUE: Axial CT images from the skull base to the inferior aspect of T2 we obtained without intra venous contrast. Coronal and sagittal reformatted images were also reviewed. Contrast used: mL of , (if blank None) Oral contrast used: (if blank None) FINDINGS: Flowing and bridging anterior osteophytes. Apparent fracture C3-C4 anterior osteophyte, stable since prior exam 08/09/2018 Fracture: No acute fracture Osseous structures: Florid facet joint hypertrophic osteoarthritic changes at some levels. Vertebral alignment: Normal AP alignment Spinal canal/Neural Foramina: No evidence of significant spinal canal narrowing. No evidence for sign ificant neural foraminal stenosis. Neck soft tissues: Prevertebral soft tissues are within normal limits. Other: The airway is patent. The lung apices are clear. IMPRESSION: 1. No evidence of cervical spine fracture. 2. Multilevel degenerative disc disease with flowing bridging endplate osteophytes.
[2024-04-27] MEDS: SYMBICORT 160-4.5 MCG INHALER INHALATION SCH (21:05)
--- NOTE | 2024-04-28 00:18 | PN ---
PROGRESS NOTE DATE OF SERVICE: 04/27/2024 SUBJECTIVE: This is a 64-year-old woman who was admitted with COPD acute exacerbation with acute purulent tracheobronchitis, also complaining of severe neck pain. Dr. Galicia was consulted and recommended conservative line of management. PAST MEDICAL HISTORY: Reviewed. REVIEW OF SYSTEMS: A 14-point review is negative except as mentioned earlier. CURRENT MEDICATIONS: Reviewed include DuoNeb, dose and rest of medications noted. OBJECTIVE: VITAL SIGNS: Pulse is 76, blood pressure 120/53, respirations 19. HEENT: Conjunctivae normal. NECK: No jugular venous distention. CARDIOVASCULAR: S1, S2. RESPIRATIONS: Diminished at the bases, few scattered rhonchi. ABDOMEN: Soft. NERVOUS SYSTEM: No focal deficits. Neck movements are painful. LABORATORY DATA: WBC of 12.06. ASSESSMENT: 1. Chronic obstructive pulmonary disease acute exacerbation acute tracheobronchitis. 2. Severe neck and back spasm, possible ankylosing spondylitis, rule out inflammatory polyarthropathy, rule out DJD. 3. History of continued nicotine dependence. 4. History of asthma. 5. History of DJD. 6. History of migraine headaches. RECOMMENDATIONS: Recommended to continue current management, continue symptomatic treatment. We will await the orthopedic evaluation, otherwise will continue with steroids, bronchodilators, symptomatic treatment and the sedimentation rate is only 22 and CRP is also normal. We will continue to monitor. Guarded prognosis. Further recommendations to follow. See orders for details. MMODL / IJN: [id number] /
[2024-04-28] MEDS: predniSONE 10 MG TAB PO SCH (07:48)
--- NOTE | 2024-04-28 11:00 | P.PN ---
Subjective Progress Note Date: 04/28/24 Principal diagnosis: Neck pain; ankylosing spondylitis Patient was seen at bedside this morning sitting up in the semirecumbent position. Patient says she is still having a lot of neck pain. It does not matter whether she moves or is resting in bed. Patient says that since she woke up she had a ton of neck pain radiating from shoulder blade to shoulder blade. Patient denies any radiation down the upper extremities. Patient is wondering if pain management can see her. Patient says normally she only takes Tylenol at home for any pain and over the past 10 days since this worsening of pain in the neck she has been unable to control the pain. She says she had needed to take IV pain medication every several hours to help. Objective - Vital Signs Vital signs: Vital Signs Temp 98.2 F 04/28/24 07:13 Pulse 80 04/28/24 10:15 Resp 18 04/28/24 10:15 BP 128/71 04/28/24 07:13 Pulse Ox 97 04/28/24 10:05 FiO2 Intake & Output 04/27/24 04/28/24 04/28/24 18:59 06:59 18:59 Other: Voiding Method Bedside Commode Bedside Commode # Voids 2 2 - Exam Inspection: Positive for scoliosis throughout the spine. Negative for any open fracture, significant erythema/ecchymosis/open wounds. Sensation: Equal, symmetric, bilateral intact throughout the upper and lower extremities on exam Palpation: Positive for moderate tenderness to palpation over the cervical spine at midline as well as in the paravertebral regions. Nontender to palpation throughout the thoracic spine and lumbar spine midline positive for tenderness to palpation over the bilateral SI joints. Range of motion: Full range of motion throughout bilateral lower extremities on exam. Full range of motion throughout bilateral elbows and wrists in flexion/extension. Patient is able to forward elevate bilateral shoulders to about 135 degrees before she says she gets increased pain to the neck where she is not able to raise arms any higher. Patient is able to abduct bilateral shoulders to about 110 degrees bilaterally. 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 4+/5 in resisted external/internal rotation, abduction and forward elevation of the shoulders. 4+/5 in bilateral elbows and wrist in flexion and extension. 4+/5 in all major motor groups in bilateral lower extremities Neurovascular: Radial pulse intact, 2+ bilaterally. Cap refill <3 sec in digits UE. Special test: Negative Homans bilaterally. Negative Tima bilaterally. - Labs CBC & Chem 7: 04/27/24 06:23 04/27/24 06:23 Labs: Abnormal Lab Results - Last 24 Hours (Table) 04/27/24 04/27/24 Range/Units 06:23 06:23 WBC 12.06 H (4.50-10.00) X 10*3/uL RBC 3.23 L (4.10-5.20) X 10*6/uL Hgb 10.4 L (12.0-15.0) g/dL Hct 33.5 L (37.2-46.3) % MCV 103.7 H (80.0-97.0) FL MCH 32.2 H (27.0-32.0) pg MCHC 31.0 L (32.0-37.0) g/dL Immature Gran # 0.05 H (0.00-0.04) X 10*3/uL Neutrophils # 11.06 H (1.80-7.70) X 10*3/uL Lymphocytes # 0.36 L (0.90-5.00) X 10*3/uL Eosinophils # 0 L (0.04-0.35) X 10*3/uL Carbon Dioxide 32.9 H (21.6-31.8) mmol/L Creatinine 0.5 L (0.6-1.5) mg/dL BUN/Creatinine Ratio 36.80 H (12.00-20.00) Ratio Glucose 135 H (70-110) mg/dL Assessment and Plan Assessment: 1. Cervical spondylosis; cervical degenerative disc disease; neck pain; ankylosing spondylitis Plan: 1. Cervical spondylosis; cervical degenerative disc disease; neck pain; ankylosing spondylitis -Ct scan cervical spine has been reviewed. Therre is evidient DDD, ankylosing spondylitis C3-C4 anterior osteophyte. I did discuss the findings of the imaging with my attending, Dr. Galicia. patient does not present with any significant weakness or tensioning signs on exam. At this time we are not recommending any emergent/urgent orthopedic surgical intervention. s oft c-collar ordered. Pain management consulted for further recommendations. We recommend conservative measures at this time with the use of pain medication and PT/OT. Patient is stable from an orthopedic standpoint for discharge. We do recommend patient to follow-up in the outpatient setting with Dr. Galicia in 2 weeks for continued evaluation. At this time orthopedics is signing off. Ple ase do not hesitate to contact us for any further questions. 2. Appreciate medical and pulmonology management 3. Pain management -Tylenol; baclofen; Parmelee 4. DVT prophylaxis -heparin 5. GI prophylaxis -Protonix; Mag-Ox 6. PT/OT -weightbearing as tolerated with walker as needed 7. Encourage incentive spirometer use Time with Patient: Less than 30
--- NOTE | 2024-04-28 11:36 | P.PN ---
Subjective Progress Note Date: 04/28/24 This is a 64-year-old female patient with a known history of severe oxygen dependent chronic obstructive pulmonary disease with chronic and ongoing tobacco dependence. She was last seen here in December 2023. She states she is unable to to our office due to cost. She states she has run out of her maintenance inhalers due to cost as well. She presented here to the emergency room early this morning with increasing shortness of breath, cough and congestion. Chest x-ray reveals chronic and for somatic changes without acute pulmonary process. White count 7.4. Hemoglobin 11.5. Platelets 251. Sodium 142. Potassium 4.4. Bicarb 38. BUN 12. Creatinine 0.35. Glucose 109. Troponin negative x 1. proBNP 40. She is seen today in consultation in the emergency department. She is currently sitting up on a stretcher. Awake and alert in no acute distress. She is maintaining O2 saturation in the 90s on 4 L/min per nasal cannula. She is afebrile. Hemodynamically stable. She is dyspneic with conversation. Dyspneic with minimal exertion. She is also complaining of neck pain from the "stress". No fever or chills. No productive cough. No hemoptysis. The patient is seen today April 25, 2024 in follow-up on the regular medical floor. She is currently sitting up in bed. Awake and alert in no acute distress. Doing a bit better today compared to yesterday. She is maintaining O2 saturations in the 90s on 4 L/min per nasal cannula. No new labs today. She is continue on DuoNeb inhalations, Pulmicort and Perforomist inhalation, Solu- Medrol. Empiric antibiotics in the form of ceftriaxone and azithromycin. Heparin for DVT prophylaxis. The patient is seen today April 26, 2024 in follow-up on the regular medical floor. She is awake and alert in no acute distress. Breathing easier today compared to yesterday. She denies any worsening shortness of breath, cough or congestion. She is maintaining O2 saturations in the 90s on 4 L/min per nasal cannula. She is afebrile. Hemodynamically stable. Her main complaint is continued neck pain. Cervical spine x-rays revealed no acute changes. No interval change compared to previous in 2018. The findings are consistent with ankylosing spondylitis. White count 11.6. Hemoglobin 10.3. Platelets 254. Sodium 143. Potassium 4.8. Bicarb 35. BUN 17. Creatinine 0.4. Glucose 133. Her procalcitonin was negative at 0.02. Antibiotics will be discontinued. He is on DuoNeb inhalations Pulmicort and Perforomist inhalations, IV Solu-Medrol. The patient is seen today April 27, 2024 in follow-up on the regular medical floor. She is sitting up in bed. Awake and alert in no acute distress. Continues to improve from the pulmonary standpoint. Less bronchospastic less wheezing nearly back to her baseline. Continue on DuoNeb inhalations, Symbicort, prednisone taper. Heparin for DVT prophylaxis. She has been evaluated by orthopedics regarding her acute on chronic neck pain. White count 12.0. Hemoglobin 10.4. Platelets 260. Sodium 142. Potassium 4.8. Bicarb 33. BUN 18. Creatinine 0.5. Glucose 135. The patient is seen today April 28, 2024 in follow-up on the regular medical floor. She is awake and alert in no acute distress. Stating her breathing is nearly back to her baseline. She denies any worsening shortness of breath, cough or congestion. She is maintaining good O2 saturations in the 90s on 4 L/m in per nasal cannula. No IV fluids. Her neck pain is improving. CT scan of the cervical spine revealed no evidence of cervical spine fracture. Multilevel degenerative disc disease with flowing bridging endplate osteophytes. No plans for surgical intervention at this point per orthopedics. Remains on bronchodilators. Heparin for DVT prophylaxis. Remains on a prednisone taper. Objective - Vital Signs Vital signs: Vital Signs Temp 98.2 F 04/28/24 07:13 Pulse 80 04/28/24 10:15 Resp 18 04/28/24 10:15 BP 128/71 04/28/24 07:13 Pulse Ox 97 04/28/24 10:05 FiO2 Intake & Output 04/27/24 04/28/24 04/28/24 18:59 06:59 18:59 Other: Voiding Method Bedside Commode Bedside Commode # Voids 2 2 - Exam GENERAL EXAM: Alert, 64-year-old female, sitting up at the bedside, on 4 L nasal cannula, in no apparent distress. HEAD: Normocephalic. EYES: Normal reaction of pupils, equal size. NOSE: Clear with pink turbinates. THROAT: No erythema or exudates. NECK: No masses, no JVD. CHEST: No chest wall deformity. LUNGS: Equal air entry with end expiratory wheeze, diminished throughout. CVS: S1 and S2 normal with no audible murmur, regular rhythm. ABDOMEN: No hepatosplenomegaly, normal bowel sounds, no guarding or rigidity. SPINE: No scoliosis or deformity SKIN: No rashes CENTRAL NERVOUS SYSTEM: No focal deficits, tone is normal in all 4 extremities. EXTREMITIES: There is no peripheral edema. No clubbing, no cyanosis. Peripheral pulses are intact. - Labs CBC & Chem 7: 04/27/24 06:23 04/27/24 06:23 Assessment and Plan Assessment: Acute on chronic hypoxic respiratory failure secondary to an acute exacerbation of chronic obstructive pulmonary disease. Procalcitonin negative Severe oxygen dependent chronic obstructive pulmonary disease FEV1 value 20% of predicted/0.6 L Chronic tobacco dependence, vaping Medical noncompliance due to cost Acute on chronic neck pain secondary to ankylosing spondylitis. Being worked up by orthopedics History of migraines History of osteoarthritis History of previous GI bleed in 2021 Plan: The patient was seen and evaluated Medications reviewed CT scan of the cervical neck and spine reviewed No plans for surgical intervention per orthopedic Stable for discharge from the pulmonary standpoint Continue her home pulmonary medications, oxygen Complete a prednisone taper Follow-up in the office in 1 week This patient was seen independently by the pulmonary nurse practitioner addressing pulmonary issues I have personally seen and examined the patient, performed the documentation and the assessment and plan as written. Number of minutes spent on the visit: 24.
--- NOTE | 2024-04-28 14:08 | P.CON ---
Consult Note - . Consult date: 04/28/24 Assessment/Plan:: this is a 64-year-old lady with history of neck pain with radiation to the occipital area of the head and also the upper shoulders bilaterally. The patient has chronic neck pain however not as bad as this one which started 10 days ago with no precipitating events. The patient denies any bowel or bladder dysfunction or any weakness in the upper or lower extremities. Her pain gets worse with neck movement. She denies any numbness or tingling in the upper or lower extremities. By physical exam she is alert oriented 3 no apparent distress. She has soft neck collar on. Muscle strength exam of the upper or lower extremities is symmetrical and within normal limits. Cervical spine MRI showed cervical spondylosis with no neural foraminal stenosis but with bone spurs. The patient's pain is not responding to opioids as treatment. The patient is willing to try interventional pain procedures for her pain control. I will schedule the patient to have cervical epidural steroid injection under fluoroscopic guidance. In the future the patient may benefit from a diagnostic cervical medial branch block. Since the patient has been on heparin subcu him going to send for a PTT assessment before we do the procedure. I thank you for the consultation
[2024-04-28] MEDS ORDERED: IOPAMIDOL M200 10 ML VIAL ONE (15:11)
[2024-04-28] MEDS ORDERED: DEXAMETHASONE SOD PHOSPHATE 10 MG/ML 1 ML VIAL ONE (15:11)
--- NOTE | 2024-04-28 15:22 | P.PCN ---
Date of Procedure: 04/28/24 Surgeon: Jc Dalton Pathology: none sent Condition: stable Disposition: PACU Description of Procedure: PROCEDURE 1. Cervical epidural steroid injection under fluoroscopic guidance, C7-T1 Right paramedian approach. 2. Cervical epidurogram. : PREOPERATIVE DIAGNOSIS: cervical spondylosis without myelopathy, DDD POSTOPERATIVE DIAGNOSIS: : Same as above ANESTHESIA: Local anesthesia only with 1% lidocaine . EBL 0 PROCEDURE INDICATION: The patient with neck pain and radiculopathy unresponsive to conservative treatment consents for procedure. PROCEDURE DESCRIPTION / TECHNIQUE: The patient was seen and identified in the preoperative area. Risks, benefits, complications, including but not limited to infections ,bleeding , allergic reactions to the medications ,and not complete pain relief, and alternatives were discussed with the patient, the patient agreed to proceed with the procedure and signed the consent. Patient was taken to the OR and time out was completed. The patient was placed in the prone position on the procedure table. A pillow was placed under the patients chest to increase the flexion of the cervical spine . The cervical area was prepped and draped in the usual sterile fashion. Vital signs were closely monitored during the procedure. Conscious sedation was used during the procedure to decrease patients anxiety. Using anterior-posterior fluoroscopy, the C7-T1 interlaminar space was identified and the skin over this site was marked and then infiltrated with 1% lidocaine subcutaneously. Subsequently, a 20-gauge 3-1/2-inch Tuohy epidural needle was inserted and advanced toward the epidural space by means of loss of resistance to air technique and guided by AP and lateral fluoroscopy. The needle tip contacted the lamina of T1 vertebra first, then it was walked off bone and into the epidural space using the loss of to air and fluoroscopic guidance to identify the epidural space. The correct needle position in the epidural space was verified with the injection of 1 mL of the water soluble contrast dye Isovue and observing an excellent epidurogram with the epidural spread of the dye, after negative aspiration for blood and CSF and in the absence of paresthesias. Again after negative aspiration, a 2 ml mixture containing 10 mg of Decadron and 1 ml of preservative free Normal Saline solution was injected and a washout of epidurogram was seen. Needle was withdrawn intact, skin was cleansed, and bandages were applied. A copy of the needle placement picture was saved to the fluoroscopy machine.
--- NOTE | 2024-04-28 18:00 | FL ---
EXAMINATION TYPE: FL guided pain mgmt statistic Intraoperative/procedural fluoroscopic services were provided. Total fluoroscopy time is 6 seconds with a total of 1 submitted images to PACS. Please see the operative/procedural note for further details. DAP: 0.84 mGym2
--- NOTE | 2024-04-28 22:28 | P.PN ---
Subjective This is a pleasant 64 years old female who presents initially because of worsening dyspnea and acute on chronic hypoxia secondary to acute COPD exac erbation, currently she is improved and kept on a prednisone 30 mg daily. She is also saturating 96% on 4 L oxygen. She currently is receiving doses at home, patient confirms to me she has oxygen at home. Blood she is complaining from severe neck pain, without weakness or tingling numbness in the upper extremities. She has no previous pain shot, today patient is supposed to undergo cervical spine epidural injection. Orthopedic team on the case recommended no surgical intervention Patient is hemodynamically stable Labs imaging and lumbar and chest x-ray are reviewed also cervical spine CT. Possible discharge in 24 to 48 hours Objective - Vital Signs Vital signs: Vital Signs Temp 98.4 F 04/28/24 13:09 Pulse 81 04/28/24 13:09 Resp 16 04/28/24 13:09 BP 109/52 04/28/24 13:09 Pulse Ox 96 04/28/24 13:09 FiO2 Intake & Output 04/27/24 04/28/24 04/28/24 18:59 06:59 18:59 Other: Voiding Method Bedside Commode Bedside Commode Bedside Commode # Voids 2 2 - Exam GENERAL: The patient is alert and oriented x3, not in any acute distress. Well developed, well nourished. -HEENT: Pupils are round and equally reacting to light. EOMI. No scleral icterus. No conjunctival pallor. Normocephalic, atraumatic. No pharyngeal erythema. No thyromegaly. No significant cervical spine tenderness CARDIOVASCULAR: S1 and S2 present. No murmurs, rubs, or gallops. PULMONARY: Chest is clear to auscultation, no wheezing , no crackles. ABDOMEN: Soft, nontender, nondistended, normoactive bowel sounds. No palpable organomegaly. MUSCULOSKELETAL: No joint swelling or deformity. EXTREMITIES: No cyanosis, clubbing, or pedal edema. NEUROLOGICAL: Gross neurological examination did not reveal any focal deficits. SKIN: No rashes. no petechiae. - Labs CBC & Chem 7: 04/27/24 06:23 04/27/24 06:23 Assessment and Plan Assessment: Acute COPD exacerbation Acute on chronic hypoxic respiratory failure Acute cervical spondylosis without myelopathy s/p epidural cervical spine injection Mild leukocytosis secondary to steroid effect Chronic anemia Degenerative disc disease and osteoarthritis Plan: Patient is going to undergo pain injection with pain team service Orthopedic team recommended no surgical intervention Patient on prednisone 30 mg continued with pulmonary team on the case GI prophylaxis with Protonix DVT prophylaxis with heparin Prognosis is guarded
[2024-04-29 11:52] VITALS: PULSE 87
[2024-04-29 13:23] VITALS: BP 122/66; RESP 17; TEMP 99.6
--- NOTE | 2024-04-29 13:23 | P.PN ---
Subjective Progress Note Date: 04/29/24 This is a 64-year-old female patient with a known history of severe oxygen dependent chronic obstructive pulmonary disease with chronic and ongoing tobacco dependence. She was last seen here in December 2023. She states she is unable to to our office due to cost. She states she has run out of her maintenance inhalers due to cost as well. She presented here to the emergency room early this morning with increasing shortness of breath, cough and congestion. Chest x-ray reveals chronic and for somatic changes without acute pulmonary process. White count 7.4. Hemoglobin 11.5. Platelets 251. Sodium 142. Potassium 4.4. Bicarb 38. BUN 12. Creatinine 0.35. Glucose 109. Troponin negative x 1. proBNP 40. She is seen today in consultation in the emergency department. She is currently sitting up on a stretcher. Awake and alert in no acute distress. She is maintaining O2 saturation in the 90s on 4 L/min per nasal cannula. She is afebrile. Hemodynamically stable. She is dyspneic with conversation. Dyspneic with minimal exertion. She is also complaining of neck pain from the "stress". No fever or chills. No productive cough. No hemoptysis. The patient is seen today April 25, 2024 in follow-up on the regular medical floor. She is currently sitting up in bed. Awake and alert in no acute distress. Doing a bit better today compared to yesterday. She is maintaining O2 saturations in the 90s on 4 L/min per nasal cannula. No new labs today. She is continue on DuoNeb inhalations, Pulmicort and Perforomist inhalation, Solu- Medrol. Empiric antibiotics in the form of ceftriaxone and azithromycin. Heparin for DVT prophylaxis. The patient is seen today April 26, 2024 in follow-up on the regular medical floor. She is awake and alert in no acute distress. Breathing easier today compared to yesterday. She denies any worsening shortness of breath, cough or congestion. She is maintaining O2 saturations in the 90s on 4 L/min per nasal cannula. She is afebrile. Hemodynamically stable. Her main complaint is continued neck pain. Cervical spine x-rays revealed no acute changes. No interval change compared to previous in 2018. The findings are consistent with ankylosing spondylitis. White count 11.6. Hemoglobin 10.3. Platelets 254. Sodium 143. Potassium 4.8. Bicarb 35. BUN 17. Creatinine 0.4. Glucose 133. Her procalcitonin was negative at 0.02. Antibiotics will be discontinued. He is on DuoNeb inhalations Pulmicort and Perforomist inhalations, IV Solu-Medrol. The patient is seen today April 27, 2024 in follow-up on the regular medical floor. She is sitting up in bed. Awake and alert in no acute distress. Continues to improve from the pulmonary standpoint. Less bronchospastic less wheezing nearly back to her baseline. Continue on DuoNeb inhalations, Symbicort, prednisone taper. Heparin for DVT prophylaxis. She has been evaluated by orthopedics regarding her acute on chronic neck pain. White count 12.0. Hemoglobin 10.4. Platelets 260. Sodium 142. Potassium 4.8. Bicarb 33. BUN 18. Creatinine 0.5. Glucose 135. The patient is seen today April 28, 2024 in follow-up on the regular medical floor. She is awake and alert in no acute distress. Stating her breathing is nearly back to her baseline. She denies any worsening shortness of breath, cough or congestion. She is maintaining good O2 saturations in the 90s on 4 L/m in per nasal cannula. No IV fluids. Her neck pain is improving. CT scan of the cervical spine revealed no evidence of cervical spine fracture. Multilevel degenerative disc disease with flowing bridging endplate osteophytes. No plans for surgical intervention at this point per orthopedics. Remains on bronchodilators. Heparin for DVT prophylaxis. Remains on a prednisone taper. The patient is seen today April 29, 2024 in follow-up on the regular medical floor. She is currently sitting up in bed. Awake and alert in no acute distress. She is maintaining good O2 saturations in the upper 90s on 4 L/min per nasal cannula. She is been afebrile. Hemodynamically stable. Scheduled epidural steroid injection yesterday. She has felt improvement today. She is continued on DuoNeb ventilations, Symbicort, prednisone taper. Heparin for DVT prophylaxis. Objective - Vital Signs Vital signs: Vital Signs Temp 98 F 04/29/24 06:57 Pulse 87 04/29/24 11:51 Resp 16 04/29/24 06:57 BP 117/62 04/29/24 06:57 Pulse Ox 98 04/29/24 08:49 FiO2 Intake & Output 04/28/24 04/29/24 04/29/24 18:59 06:59 18:59 Other: Voiding Method Bedside Commode Bedside Commode # Voids 2 # Bowel Movements 1 - Exam GENERAL EXAM: Alert, pleasant 64-year-old female, resting in bed, on 4 L nasal cannula, in no distress. HEAD: Normocephalic. EYES: Normal reaction of pupils, equal size. NOSE: Clear with pink turbinates. THROAT: No erythema or exudates. NECK: No masses, no JVD. CHEST: No chest wall deformity. LUNGS: Equal air entry with end expiratory wheeze, diminished throughout. CVS: S1 and S2 normal with no audible murmur, regular rhythm. ABDOMEN: No hepatosplenomegaly, normal bowel sounds, no guarding or rigidity. SPINE: No scoliosis or deformity SKIN: No rashes CENTRAL NERVOUS SYSTEM: No focal deficits, tone is normal in all 4 extremities. EXTREMITIES: There is no peripheral edema. No clubbing, no cyanosis. Peripheral pulses are intact. - Labs CBC & Chem 7: 04/27/24 06:23 04/27/24 06:23 Assessment and Plan Assessment: Acute on chronic hypoxic respiratory failure secondary to an acute exacerbation of chronic obstructive pulmonary disease. Procalcitonin negative Severe oxygen dependent chronic obstructive pulmonary disease FEV1 value 20% of predicted/0.6 L Chronic tobacco dependence, vaping Medical noncompliance due to cost Acute on chronic neck pain secondary to ankylosing spondylitis. Received a cervical epidural steroid injection 04/28/2024 History of migraines History of osteoarthritis History of previous GI bleed in 2021 Plan: The patient was seen and evaluated Medications reviewed Received a cervical epidural steroid injection yesterday Stable for discharge Continue her home pulmonary medications, oxygen Complete a prednisone taper Follow-up in the office in 1 week This patient was seen independently by the pulmonary nurse practitioner addressing pulmonary issues I have personally seen and examined the patient, performed the documentation and the assessment and plan as written. Number of minutes spent on the visit: 23.
--- NOTE | 2024-04-29 21:44 | P.DS ---
Providers Date of admission: 04/24/24 09:16 Attending physician: Mine Wilson Consults: 04/24/24 10:24 Consult Physician Urgent Consulting Provider: Marylu Peres Consult Reason/Comments: COPD exacerbation Do you want consulting provider notified?: Yes 04/26/24 10:46 Consult Physician Routine Consulting Provider: Sidney Galicia Consult Reason/Comments: Neck pain Do you want consulting provider notified?: Yes, Notify in am 04/26/24 12:59 Consult Physician Routine Consulting Provider: Sidney Galicia Consult Reason/Comments: neck pain Do you want consulting provider notified?: Yes 04/28/24 10:45 Consult Physician Routine Consulting Provider: Dat De Santiago Consult Reason/Comments: neck pain Do you want consulting provider notified?: Yes Primary care physician: Angel Rodriguez [facility] Course: Diagnoses Acute COPD exacerbation Acute on chronic hypoxic respiratory failure Acute cervical spondylosis without myelopathy s/p epidural cervical spine injection Mild leukocytosis secondary to steroid effect Chronic anemia Degenerative disc disease and osteoarthritis Hospital course: This is a pleasant 64 years old female who presents initially because of worsening dyspnea and acute on chronic hypoxia secondary to acute COPD exacerbation, currently she is improved and kept on a prednisone 30 mg daily. She is also saturating 96% on 4 L oxygen. She currently is receiving doses at home, patient confirms to me she has oxygen at home. Blood she is complaining from severe neck pain, without weakness or tingling numbness in the upper extremities. She has no previous pain shot, yesterday patient underwent cervical spine epidural injection. Orthopedic team on the case recommended no surgical intervention Today patient is breathing back close to baseline, she is at home dose of 4 L of oxygen per minute with good oxygen saturation, no significant tachypnea. No chest pain Her severe back pain she had yesterday almost completely resolved after the pain injection yesterday in her cervical epidural space. No weakness or numbness in upper extremities No other complaint Patient is very eager to go home today. Patient was cleared for discharge by both pulmonary and orthopedic team Patient will be discharged on tapered steroids. Problems and management plan were discussed with the patient and he verbalized understanding and acceptance Patient was found stable and can be discharged home in guarded prognosis however he needs follow-up as an outpatient. Patient was instructed to follow up with PCP Dr. Rodriguez within one week and patient agrees Patient was instructed to follow-up with towel folder Dr. Muhammad/ or Dr. pickering in 2 weeks, patient instructed to follow-up with orthopedic team in the pain clinic in 2 weeks after discharge and she agrees to call and make appointment Physical exam Gen: patient is a AAOx3, no distress CVS: S1-S2, RRR, no murmur Lungs: B/L CTA, no wheezing Abdomen: soft, no distention, no tenderness, positive bowel sounds Extremity: no leg edema or induration Time spent more than 35 minutes Patient Condition at Discharge: Fair Plan - Discharge Summary Discharge Rx Participant: No New Discharge Prescriptions: New Baclofen [Lioresal] 5 mg PO TID tab Omeprazole [PriLOSEC] 40 mg PO DAILY #30 cap Ibuprofen [Motrin] 400 mg PO Q8HR PRN 4 Days #12 tab PRN Reason: Pain Or Fever > 100.5 Ipratropium-Albuterol Nebulize [Duoneb 0.5 mg-3 mg/3 ml Soln] 3 ml INHALATION RT-QID PRN #1 each PRN Reason: Shortness Of Breath Continue Loratadine 10 mg PO DAILY Vitamin E (Dl,Tocopheryl Acet) [Vitamin E (400 Iu = 180 mg)] 400 unit PO DAILY Fluticasone Nasal [place] [Flonase Nasal [place]] 2 spray EA NOSTRIL DAILY Magnesium Oxide [Mag-Ox] 400 mg PO DAILY #15 tab Cyanocobalamin (Vitamin B-12) [Vitamin B-12] 1,000 mcg PO DAILY Cholecalciferol [Vitamin D3 (25 Mcg = 1000 Iu)] 50 mcg PO DAILY Acetaminophen Tab [Tylenol] 1,000 mg PO Q6HR PRN tab PRN Reason: Fever And/ Or Pain Aspirin/Acetaminophen/Caffeine [Excedrin Migraine Caplet] 1 tab PO DAILY PRN PRN Reason: Migraine Headache Budesonide-Formot 160-4.5 Mcg [Symbicort 160-4.5 Mcg Inhaler] 2 puff INHALATION RT-BID 30 Days #1 each Albuterol Nebulized [Ventolin Nebulized] 2.5 mg INHALATION RT-QID PRN #10 ml PRN Reason: Shortness Of Breath No Action predniSONE See Taper PO DIRECTED Discharge Medication List Loratadine 10 mg PO DAILY 06/08/19 [History] Magnesium Oxide [Mag-Ox] 400 mg PO DAILY #15 tab 10/13/22 [Rx] Cholecalciferol [Vitamin D3 (25 Mcg = 1000 Iu)] 50 mcg PO DAILY 01/01/24 [History] Cyanocobalamin (Vitamin B-12) [Vitamin B-12] 1,000 mcg PO DAILY 01/01/24 [History] Vitamin E (Dl,Tocopheryl Acet) [Vitamin E (400 Iu = 180 mg)] 400 unit PO DAILY 01/01/24 [History] Acetaminophen Tab [Tylenol] 1,000 mg PO Q6HR PRN tab 01/03/24 [Rx] Aspirin/Acetaminophen/Caffeine [Excedrin Migraine Caplet] 1 tab PO DAILY PRN 04/24/24 [History] Fluticasone Nasal [place] [Flonase Nasal [place]] 2 spray EA NOSTRIL DAILY 04/25/24 [History] Albuterol Nebulized [Ventolin Nebulized] 2.5 mg INHALATION RT-QID PRN #10 ml 04/29/24 [Rx] Baclofen [Lioresal] 5 mg PO TID tab 04/29/24 [Rx] Budesonide-Formot 160-4.5 Mcg [Symbicort 160-4.5 Mcg Inhaler] 2 puff INHALATION RT-BID 30 Days #1 each 04/29/24 [Rx] Ibuprofen [Motrin] 400 mg PO Q8HR PRN 4 Days #12 tab 04/29/24 [Rx] Ipratropium-Albuterol Nebulize [Duoneb 0.5 mg-3 mg/3 ml Soln] 3 ml INHALATION RT-QID PRN #1 each 04/29/24 [Rx] Omeprazole [PriLOSEC] 40 mg PO DAILY #30 cap 04/29/24 [Rx] predniSONE See Taper PO DIRECTED 04/29/24 [History] Follow up Appointment(s)/Referral(s): Marylu Peres MD [STAFF PHYSICIAN] - As Needed Arnaldo Pickering DO [Doctor of Osteopathic Medicine] - 05/25/24 10:30 am [facility] [NON-STAFF] - 05/13/24 9:15 am Angel Rodriguez DO [Primary Care Provider] - 05/01/24 2:15 pm Sidney Galicia DO [Doctor of Osteopathic Medicine] - 05/06/24 11:30 am Activity/Diet/Wound Care/Special Instructions: Patient requires a wheelchair to complete her ADLS which cannot be done with a cane or walker due to her COPD. Patient is able to self propel. Discharge/Stand Alone Forms: [facility] Instructions, Adult Foster [facility] List Discharge Disposition: HOME SELF-CARE
== END 2024-04-29 14:30 | disposition home or self-care (01) | DRG 190 ==
LOC: EC 05:55 → 6NMEDSUR 09:15 → OBSVTOIN 09:16 → 6NMEDSUR 13:45 → 4SSUR 16:29
PROVIDERS: ADMIT Hospitalist; ATTEND Hospitalist
PROC: 3E0R3BZ Introduction of Anesthetic Agent into Spinal Canal, Percutaneous Approach (ICD-10-PCS; 2024-04-28)
PROC: B01B1ZZ Fluoroscopy of Spinal Cord using Low Osmolar Contrast (ICD-10-PCS; 2024-04-28)
PROC: 3E0R33Z Introduction of Anti-inflammatory into Spinal Canal, Percutaneous Approach (ICD-10-PCS; principal; 2024-04-28 14:15)
DX: J44.1 Chronic obstructive pulmonary disease with (acute) exacerbation (principal); J96.21 Acute and chronic respiratory failure with hypoxia; J44.0 Chronic obstructive pulmonary disease with (acute) lower respiratory infection; F17.210 Nicotine dependence, cigarettes, uncomplicated; G89.29 Other chronic pain; I10 Essential (primary) hypertension; M45.9 Ankylosing spondylitis of unspecified sites in spine; Z99.81 Dependence on supplemental oxygen; Z91.199 Patient's noncompliance with other medical treatment and regimen due to unspecified reason; Z90.710 Acquired absence of both cervix and uterus; Z88.5 Allergy status to narcotic agent; Z91.048 Other nonmedicinal substance allergy status; M47.812 Spondylosis without myelopathy or radiculopathy, cervical region; J20.9 Acute bronchitis, unspecified; F41.9 Anxiety disorder, unspecified; M45.2 Ankylosing spondylitis of cervical region; M50.31 Other cervical disc degeneration, high cervical region; F17.290 Nicotine dependence, other tobacco product, uncomplicated; G43.909 Migraine, unspecified, not intractable, without status migrainosus; D64.9 Anemia, unspecified; D72.829 Elevated white blood cell count, unspecified; M47.892 Other spondylosis, cervical region; Z87.19 Personal history of other diseases of the digestive system; T38.0X5A Adverse effect of glucocorticoids and synthetic analogues, initial encounter; Z79.51 Long term (current) use of inhaled steroids; Z79.82 Long term (current) use of aspirin; X58.XXXA Exposure to other specified factors, initial encounter
CPT/HCPCS: 36415; 62321; 71046; 72050; 72114; 72125; 80048; 80053; 83605; 83880; 84145; 84484; 85025; 85610; 85652; 85730; 86140; 93005; 94640; 94760; 96365; 96366; 99285

== ENCOUNTER 2024-04-29 20:38 | Observation (INO) | payer MEDICARE ==
[2024-04-29 20:58] LABS: VBG PH 7.56 (7.31-7.41)
[2024-04-29] MEDS: LORazepam 2 MG/ML INJ IV STA (21:00)
[2024-04-29] MEDS: NITROGLYCERIN OINT 1 INCH/GM PACKET TOPICAL STA (21:00)
[2024-04-29 21:10] LABS: Basophils % (A) 0 %; Eosinophils # (A) 0.1 k/uL (0-0.7); Eosinophils % (A) 1 %; HCT 36.4 % (34.0-46.0); HGB 11.8 gm/dL (11.4-16.0); Lymphocytes # (A) 2.2 k/uL (1.0-4.8); Lymphocytes % (A) 17 %; MCH 31.9 pg (25.0-35.0); MCHC 32.6 g/dL (31.0-37.0); MCV 98.1 fL (80.0-100.0); Mean Platelet Volume 8.3; Monocytes # (A) 1.3 k/uL (0-1.0); Monocytes % (A) 10 %; Neutrophils # (A) 9.2 k/uL (1.3-7.7); Neutrophils % (A) 70 %; Platelet Count 353 k/uL (150-450); RBC 3.71 m/uL (3.80-5.40); RDW 12.8 % (11.5-15.5); WBC 13.1 k/uL (3.8-10.6)
[2024-04-29 21:14] LABS: ALT 56 U/L (4-34); AST 58 U/L (14-36); African American GFR (CKD) >90 (>60 ml/min/1.73 sqM); Albumin 3.9 g/dL (3.5-5.0); Alkaline Phosphatase 100 U/L (38-126); Blood Urea Nitrogen 23 mg/dL (7-17); Calcium 9.3 mg/dL (8.4-10.2); Chloride 98 mmol/L (98-107); Glucose 155 mg/dL (74-99); Non-African American GFR(CKD) >90 (>60 ml/min/1.73 sqM); Sodium 142 mmol/L (137-145); Total Bilirubin 0.5 mg/dL (0.2-1.3); Total Protein 6.2 g/dL (6.3-8.2)
[2024-04-29 21:20] LABS: Anion Gap 1 mmol/L
--- NOTE | 2024-04-29 21:22 | XR ---
EXAMINATION TYPE: XR chest 1V portable DATE OF EXAM: 04/29/2024 9:07 PM CLINICAL INDICATION:Female, 64 years old with history of dyspnea; [facility] COMPARISON: Chest radiographs from 04/24/2024 TECHNIQUE: XR chest 1V portable Frontal view of the chest. FINDINGS: Lungs/Pleura: Prominent interstitial lung markings are seen scattered throughout the lungs with simon ening of the diaphragm and increased lucency of the lung apices. No evidence of focal consolidation, pneumothorax or pleural effusion. Pulmonary vascularity: Unremarkable. Heart/mediastinum: Cardiomediastinal silhouette is unremarkable. Musculoskeletal: No acute osseous pathology. IMPRESSION: 1. No acute cardiopulmonary disease process. 2. COPD changes.
[2024-04-29 21:24] LABS: INR 0.9 (<1.2); Prothrombin Time 10.3 sec (10.0-12.5)
[2024-04-29 21:35] LABS: Partial Thromboplastin Time 20.5 sec (22.0-30.0)
[2024-04-29 21:51] LABS: Carbon Dioxide 43 mmol/L (22-30)
[2024-04-29] MEDS: ALBUTEROL NEBULIZED 2.5 MG/3 ML INHALATION STA (22:50)
[2024-04-29] MEDS ORDERED: ONDANSETRON 4 MG/2 ML VIAL IVP PRN (23:15)
[2024-04-29] MEDS ORDERED: NALOXONE 0.4 MG/ML 1 ML VIAL IVP PRN (23:15)
[2024-04-29] MEDS ORDERED: ALBUTEROL NEBULIZED 2.5 MG/3 ML INHALATION PRN (23:15)
--- NOTE | 2024-04-29 23:25 | ED ---
SOB HPI - General Chief Complaint: Shortness of Breath Stated Complaint: respiratory distress Time Seen by Provider: 04/29/24 20:48 Source: patient, EMS Mode of arrival: EMS Limitations: physical limitation (Severe dyspnea) - History of Present Illness Initial Comments: This patient is a 64-year-old woman with history of COPD brought by ambulance for respiratory distress. The patient had been in the hospital and was discharged today. Patient has history of COPD reportedly with FEV1 at 20% predicted. Patient is reportedly oxygen dependent at 4 L nasal cannula. She developed progressively worsening shortness of breath and EMS was called. They reportedly arrived and found patient with oxygen saturations down to low 70s. On arrival patient not able to give history secondary to severe dyspnea. MD Complaint: shortness of breath, cough -: hour(s) Severity scale (1-10): 0 Consistency: constant Improves With: oxygen, bronchodilators Known History Of: COPD Treatments Prior to Arrival: oxygen, bronchodilator - Related Data Home Oxygen Therapy: Yes Home Medications Medication Instructions Recorded Confirmed Loratadine 10 mg PO DAILY 06/08/19 04/29/24 Cholecalciferol [Vitamin D3 (25 50 mcg PO DAILY 01/01/24 04/29/24 Mcg = 1000 Iu)] Cyanocobalamin (Vitamin B-12) 1,000 mcg PO DAILY 01/01/24 04/29/24 [Vitamin B-12] Vitamin E (Dl,Tocopheryl Acet) 400 unit PO DAILY 01/01/24 04/29/24 [Vitamin E (400 Iu = 180 mg)] Aspirin/Acetaminophen/Caffeine 1 tab PO DAILY PRN 04/24/24 04/29/24 [Excedrin Migraine Caplet] Fluticasone Nasal [place] [Flonase 2 spray EA NOSTRIL DAILY 04/25/24 04/29/24 Nasal [place]] predniSONE See Taper PO DIRECTED 04/29/24 04/29/24 Previous Rx's Medication Instructions Recorded Magnesium Oxide [Mag-Ox] 400 mg PO DAILY #15 tab 10/13/22 Acetaminophen Tab [Tylenol] 1,000 mg PO Q6HR PRN tab 01/03/24 Albuterol Nebulized [Ventolin 2.5 mg INHALATION RT-QID PRN #10 ml 04/29/24 Nebulized] Baclofen [Lioresal] 5 mg PO TID tab 04/29/24 Budesonide-Formot 160-4.5 Mcg 2 puff INHALATION RT-BID 30 Days 04/29/24 [Symbicort 160-4.5 Mcg Inhaler] #1 each Ibuprofen [Motrin] 400 mg PO Q8HR PRN 4 Days #12 tab 04/29/24 Ipratropium-Albuterol Nebulize 3 ml INHALATION RT-QID PRN #1 each 04/29/24 [Duoneb 0.5 mg-3 mg/3 ml Soln] Omeprazole [PriLOSEC] 40 mg PO DAILY #30 cap 04/29/24 Allergies Allergy/AdvReac Type Severity Reaction Status Date / Time adhesive Allergy Rash/Hives Verified 04/29/24 21:02 codeine AdvReac SEVERE Verified 04/29/24 21:02 HEADACHE , VOMITING morphine AdvReac Vomiting, Verified 04/29/24 21:02 SEVERE HEADACHE Review of Systems ROS Statement: Those systems with pertinent positive or pertinent negative responses have been documented in the HPI. ROS Other: All systems not noted in ROS Statement are negative. 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 Absent: scleral icterus, conjunctival injection ENT exam: Present: normal oropharynx Neck exam: Present: normal inspection, full ROM. Absent: meningismus Respiratory exam: Present: respiratory distress, wheezes, accessory muscle use, decreased breath sounds, prolonged expiratory. Absent: rales, rhonchi, stridor, chest wall tenderness Cardiovascular Exam: Present: tachycardia, irregular rhythm. Absent: systolic murmur, diastolic murmur, rubs, gallop GI/Abdominal exam: Present: soft. Absent: distended, tenderness, guarding, rebound, rigid, mass Extremities exam: Present: normal inspection, normal capillary refill, pedal edema (Trace edema at the ankles bilaterally). Absent: calf tenderness Back exam: Present: normal inspection Neurological exam: Present: alert Skin exam: Present: warm, intact, diaphoretic, mottled. Absent: rash Course Vital Signs 04/29/24 04/29/24 04/29/24 20:40 21:00 21:04 Temperature 97.8 F Pulse Rate 121 H 120 H Respiratory 20 22 Rate Blood Pressure 154/93 176/92 O2 Sat by Pulse 96 92 L Oximetry Fraction of 60 Inspired Oxygen (FIO2) 04/29/24 04/29/24 04/29/24 21:06 21:08 21:21 Temperature Pulse Rate 114 H 110 H Respiratory 22 20 Rate Blood Pressure 138/67 O2 Sat by Pulse 95 95 Oximetry Fraction of 60 Inspired Oxygen (FIO2) 04/29/24 04/29/24 04/29/24 22:50 23:05 23:10 Temperature Pulse Rate 96 104 H 101 H Respiratory 18 Rate Blood Pressure 111/58 O2 Sat by Pulse 95 Oximetry Fraction of Inspired Oxygen (FIO2) 04/30/24 04/30/24 04/30/24 00:24 02:21 03:19 Temperature Pulse Rate 98 81 92 Respiratory 19 17 18 Rate Blood Pressure 122/64 117/57 O2 Sat by Pulse 94 L 96 96 Oximetry Fraction of Inspired Oxygen (FIO2) Medical Decision Making - Medical Decision Making Patient is 64-year-old woman here with severe respiratory distress after same- day discharge for COPD exacerbation. The patient brought directly to the resuscitation room where she is placed on BiPAP with 100% FiO2. The patient is given Ativan for severe anxiety and Nitropaste placed for blood pressure. The patient had portable chest x-ray which I interpreted as showing hyperinflation consistent with COPD, no pneumothorax or infiltrate. The patient did begin to have improvement with therapy. The patient had inhaled bronchodilator. On reevaluation, the patient remains mildly tachypneic however there is increased wheeze consistent with better air movement. Tachycardia has improved with heart rate down from the 140s to just above 100. The patient did want to try trial off of the BiPAP mask and this will be attempted. - Lab Data Result diagrams: 04/29/24 20:50 04/29/24 20:50 Lab Results 04/29/24 04/29/24 04/29/24 Range/Units 20:50 20:50 20:50 WBC 13.1 H (3.8-10.6) k/uL RBC 3.71 L (3.80-5.40) m/uL Hgb 11.8 (11.4-16.0) gm/dL Hct 36.4 (34.0-46.0) % MCV 98.1 (80.0-100.0) fL MCH 31.9 (25.0-35.0) pg MCHC 32.6 (31.0-37.0) g/dL RDW 12.8 (11.5-15.5) % Plt Count 353 (150-450) k/uL MPV 8.3 Neutrophils % 70 % Lymphocytes % 17 % Monocytes % 10 % Eosinophils % 1 % Basophils % 0 % Neutrophils # 9.2 H (1.3-7.7) k/uL Lymphocytes # 2.2 (1.0-4.8) k/uL Monocytes # 1.3 H (0-1.0) k/uL Eosinophils # 0.1 (0-0.7) k/uL Basophils # 0.0 (0-0.2) k/uL PT 10.3 (10.0-12.5) sec INR 0.9 (<1.2) APTT 20.5 L (22.0-30.0) sec VBG pH (7.31-7.41) VBG pCO2 (37-51) mmHg VBG HCO3 (24-28) mmol/L Sodium 142 (137-145) mmol/L Potassium 4.0 (3.5-5.1) mmol/L Chloride 98 (98-107) mmol/L Carbon Dioxide 43 H* (22-30) mmol/L Anion Gap 1 mmol/L BUN 23 H (7-17) mg/dL Creatinine 0.57 (0.52-1.04) mg/dL Est GFR (CKD-EPI)AfAm >90 (>60 ml/min/1.73 sqM) Est GFR (CKD-EPI)NonAf >90 (>60 ml/min/1.73 sqM) Glucose 155 H (74-99) mg/dL Plasma Lactic Acid Scooby (0.7-2.0) mmol/L Calcium 9.3 (8.4-10.2) mg/dL Total Bilirubin 0.5 (0.2-1.3) mg/dL AST 58 H (14-36) U/L ALT 56 H (4-34) U/L Alkaline Phosphatase 100 (38-126) U/L Troponin I (0.000-0.034) ng/mL NT-Pro-B Natriuret Pep pg/mL Total Protein 6.2 L (6.3-8.2) g/dL Albumin 3.9 (3.5-5.0) g/dL Influenza Type A (PCR) (Not Detectd) Influenza Type B (PCR) (Not Detectd) RSV (PCR) (Not Detectd) SARS-CoV-2 (PCR) (Not Detectd) 04/29/24 04/29/24 04/29/24 Range/Units 20:50 20:50 20:50 WBC (3.8-10.6) k/uL RBC (3.80-5.40) m/uL Hgb (11.4-16.0) gm/dL Hct (34.0-46.0) % MCV (80.0-100.0) fL MCH (25.0-35.0) pg MCHC (31.0-37.0) g/dL RDW (11.5-15.5) % Plt Count (150-450) k/uL MPV Neutrophils % % Lymphocytes % % Monocytes % % Eosinophils % % Basophils % % Neutrophils # (1.3-7.7) k/uL Lymphocytes # (1.0-4.8) k/uL Monocytes # (0-1.0) k/uL Eosinophils # (0-0.7) k/uL Basophils # (0-0.2) k/uL PT (10.0-12.5) sec INR (<1.2) APTT (22.0-30.0) sec VBG pH 7.56 H (7.31-7.41) VBG pCO2 41 (37-51) mmHg VBG HCO3 37 H (24-28) mmol/L Sodium (137-145) mmol/L Potassium (3.5-5.1) mmol/L Chloride (98-107) mmol/L Carbon Dioxide (22-30) mmol/L Anion Gap mmol/L BUN (7-17) mg/dL Creatinine (0.52-1.04) mg/dL Est GFR (CKD-EPI)AfAm (>60 ml/min/1.73 sqM) Est GFR (CKD-EPI)NonAf (>60 ml/min/1.73 sqM) Glucose (74-99) mg/dL Plasma Lactic Acid Scooby 1.1 (0.7-2.0) mmol/L Calcium (8.4-10.2) mg/dL Total Bilirubin (0.2-1.3) mg/dL AST (14-36) U/L ALT (4-34) U/L Alkaline Phosphatase (38-126) U/L Troponin I 0.015 (0.000-0.034) ng/mL NT-Pro-B Natriuret Pep pg/mL Total Protein (6.3-8.2) g/dL Albumin (3.5-5.0) g/dL Influenza Type A (PCR) (Not Detectd) Influenza Type B (PCR) (Not Detectd) RSV (PCR) (Not Detectd) SARS-CoV-2 (PCR) (Not Detectd) 04/29/24 04/29/24 Range/Units 20:50 21:04 WBC (3.8-10.6) k/uL RBC (3.80-5.40) m/uL Hgb (11.4-16.0) gm/dL Hct (34.0-46.0) % MCV (80.0-100.0) fL MCH (25.0-35.0) pg MCHC (31.0-37.0) g/dL RDW (11.5-15.5) % Plt Count (150-450) k/uL MPV Neutrophils % % Lymphocytes % % Monocytes % % Eosinophils % % Basophils % % Neutrophils # (1.3-7.7) k/uL Lymphocytes # (1.0-4.8) k/uL Monocytes # (0-1.0) k/uL Eosinophils # (0-0.7) k/uL Basophils # (0-0.2) k/uL PT (10.0-12.5) sec INR (<1.2) APTT (22.0-30.0) sec VBG pH (7.31-7.41) VBG pCO2 (37-51) mmHg VBG HCO3 (24-28) mmol/L Sodium (137-145) mmol/L Potassium (3.5-5.1) mmol/L Chloride (98-107) mmol/L Carbon Dioxide (22-30) mmol/L Anion Gap mmol/L BUN (7-17) mg/dL Creatinine (0.52-1.04) mg/dL Est GFR (CKD-EPI)AfAm (>60 ml/min/1.73 sqM) Est GFR (CKD-EPI)NonAf (>60 ml/min/1.73 sqM) Glucose (74-99) mg/dL Plasma Lactic Acid Scooby (0.7-2.0) mmol/L Calcium (8.4-10.2) mg/dL Total Bilirubin (0.2-1.3) mg/dL AST (14-36) U/L ALT (4-34) U/L Alkaline Phosphatase (38-126) U/L Troponin I (0.000-0.034) ng/mL NT-Pro-B Natriuret Pep 357 pg/mL Total Protein (6.3-8.2) g/dL Albumin (3.5-5.0) g/dL Influenza Type A (PCR) Not Detected (Not Detectd) Influenza Type B (PCR) Not Detected (Not Detectd) RSV (PCR) Not Detected (Not Detectd) SARS-CoV-2 (PCR) Not Detected (Not Detectd) - EKG Data -: EKG Interpreted by Tx EKG shows normal: sinus rhythm (With frequent PVCs), axis (Normal) Rate: tachycardia (Approximately 137) Disposition Clinical Impression: COPD exacerbation, Acute hypoxic respiratory failure Disposition: ADMITTED IP TO THIS HOSP Condition: Serious
[2024-04-30] MEDS: IBUPROFEN 400 MG TAB PO PRN (04:32)
[2024-04-30] MEDS: PANTOPRAZOLE 40 MG TABLET PO SCH (06:28)
[2024-04-30] MEDS: ACETAMINOPHEN TAB 325 MG TAB PO PRN (06:28)
[2024-04-30 08:05] VITALS: RESP 16
[2024-04-30] MEDS: SYMBICORT 160-4.5 MCG INHALER INHALATION SCH (08:52)
[2024-04-30] MEDS: IPRATROPIUM-ALBUTEROL 3 ML NEB INHALATION SCH (08:52)
[2024-04-30] MEDS: MAGNESIUM OXIDE 400 MG TAB PO SCH (09:20)
[2024-04-30] MEDS: CHOLECALCIFEROL 25 MCG (1000 IU) TABLET PO SCH (09:20)
[2024-04-30] MEDS: predniSONE 20 MG TAB PO SCH (09:20)
[2024-04-30] MEDS: FLUTICASONE 50MCG/SPRAY NASAL 16GM EA NOSTRIL SCH (10:53)
--- NOTE | 2024-04-30 12:16 | P.PN ---
Progress Note - Text Progress Note Date: 04/30/24 Patient will require hospital bed on discharge as she requires frequent position changes and elevation of 30 to 45 degrees to manage her COPD that cannot be properly done on a regular bed. Prescription provided to case management
[2024-04-30 15:01] VITALS: BP 113/72; PULSE 93; TEMP 98.4
[2024-04-30] MEDS ORDERED: MELATONIN 3 MG TABLET PO SCH (21:00)
== END 2024-04-30 16:36 | disposition home or self-care (01) ==
LOC: EC 20:38 → 3SCARD 04-30 → 6NMEDSUR 04-30 00:18
PROVIDERS: ADMIT Hospitalist; ATTEND Hospitalist
DX: J44.1 Chronic obstructive pulmonary disease with (acute) exacerbation (principal); J96.01 Acute respiratory failure with hypoxia; F32.A Depression, unspecified; F17.200 Nicotine dependence, unspecified, uncomplicated; Z99.81 Dependence on supplemental oxygen; Z79.51 Long term (current) use of inhaled steroids; Z79.899 Other long term (current) drug therapy; Z88.5 Allergy status to narcotic agent
CPT/HCPCS: 96374; 99285; 36415; 94660; 94640 ×3; 94760; 93005; 83880; 80053; 82803; 83605; 84484; 85025; 85610; 85730; 87636; 71045; G0378 ×2; J2060; J7512